=== PATIENT | male | born 1960 | race Two or more races ===

== ENCOUNTER 2019-04-13 14:58 | Inpatient (IN) | payer MEDICARE, MEDICAID ==
[~2019-04-13] VITALS: Ht 190.5 cm; Wt 109.4 kg
[2019-04-13] MEDS ORDERED: SODIUM CHLORIDE 0.9% 500 ML IVB ONE (15:08)
[2019-04-13] MEDS ORDERED: ONDANSETRON HCL 4 MG/2 ML VIAL IV ONE (15:15)
[2019-04-13] MEDS ORDERED: FAMOTIDINE (10MG/ML) 2ML VL IV ONE (15:15)
[2019-04-13 15:57] LABS: Basophils # (auto) 0.1 uL; Basophils % (auto) 0.8 % (0.0-2.0); Eosinophils # (auto) 0.1 uL; Eosinophils % (auto) 0.9 % (0.0-7.0); Hemoglobin 14.1 g/dL (13.5-17.5); Lymphocytes # (auto) 0.8 uL; Lymphocytes % (auto) 9.3 % (10.0-50.0); Mean Corpuscular Hemoglobin 28.8 pg (28.0-32.0); Mean Corpuscular Hgb Conc. 32.9 g/dL (32.0-36.0); Mean Corpuscular Volume 87.5 fL (80.0-100.0); Monocytes # (auto) 0.5 uL; Monocytes % (auto) 5.9 % (0.0-12.0); Neutrophils # (auto) 7.6 uL; Neutrophils % (auto) 83.1 % (37.0-80.0); Platelet Count (auto) 217 10^3/uL (140-450); Red Blood Cells 4.92 10^6/uL (4.5-5.90); Red Cell Distribution Width 14.4 % (11.8-14.3); White Blood Cell 9.1 10^3/uL (4.4-10.8)
[2019-04-13 16:02] LABS: Albumin 2.7 g/dL (3.4-5.0); Magnesium 1.5 mg/dL (1.6-2.6); Potassium 3.9 mmol/L (3.5-5.1)
[2019-04-13 16:04] LABS: BUN/Creatinine Ratio 12.1
[2019-04-13 16:06] LABS: Bilirubin, Total 0.6 mg/dL (0.2-1.0); Total Protein 6.7 g/dL (6.4-8.2)
[2019-04-13] MEDS ORDERED: DEXTROSE (50%) 50ML SYRG IV PRN ×3 (18:00→20:15)
[2019-04-13] MEDS ORDERED: MORPHINE SULF INJ 2 MG/ML SYRINGE 1ML IV PRN (18:00)
[2019-04-13] MEDS ORDERED: NITROGLYCERIN 0.4 MG SL TAB SL PRN (18:00)
[2019-04-13] MEDS ORDERED: HYDROcodone-ACET 5/325MG TAB PO PRN (18:00)
[2019-04-13] MEDS ORDERED: PANTOPRAZOLE 80 MG in SODIUM CHL 0.9% 60 ML IV SCH (18:00)
[2019-04-13] MEDS ORDERED: PANTOPRAZOLE 40 MG/10 ML VIAL INJ IV ONE (18:00)
[2019-04-13] MEDS ORDERED: diphenhdrAMINE HCL 25 MG CAP PO PRN (18:00)
[2019-04-13] MEDS: SOD CHL 0.45% 1,000 ML IV SCH (18:55)
[2019-04-13] MEDS: SUCRALFATE 1 GM/10 ML ORAL SUSP PO SCH ×2 (18:55→22:01)
[2019-04-13 22:00] VITALS: BP 111/51
[2019-04-13] MEDS ORDERED: InsuLIN REG 1unit/0.01ml Soln (100units/ml) SC SCH ×2 (22:00)
[2019-04-13] MEDS ORDERED: INSULIN LANTUS (GLARGINE) 1 /0.01ml (100units/ml) SC SCH (22:00)
[2019-04-13] MEDS ORDERED: ACCU-CHEK COMFORT CURVE STRIP VI SCH ×2 (22:00)
[2019-04-13] MEDS: ATORVASTATIN 20 MG TAB PO SCH (22:01)
[2019-04-13] MEDS: PANTOPRAZOLE 40 MG TAB PO SCH (22:01)
[2019-04-13] MEDS: CILOSTAZOL 100 MG TAB PO SCH (22:01)
[2019-04-13] MEDS: InsuLIN REG 1unit/0.01ml Soln (100units/ml) SC SCH (22:04)
[2019-04-14] MEDS ORDERED: ACCU-CHEK COMFORT CURVE STRIP VI SCH
[2019-04-14] MEDS: SOD CHL 0.45% 1,000 ML IV SCH ×2 (00:55→13:45)
[2019-04-14] MEDS: LINEZOLID 600MG/300ML 300 ML IV SCH ×3 (00:55→22:11)
--- NOTE | 2019-04-14 01:25 | NUR ---
DR. Sejal JAUREGUI SPOKE TO DR. JAUREGUI REGARDING PATIENT'S CRITICAL BLOOD SUGAR OF 437 AFTER RECEIVING 20U REGULAR INSULIN AND 15U LANTUS AT 2200. UPDATED ON PATIENT'S MOST RECENT LAB RESULTS. NEW ORDERS RECEIVED FOR ACCUCHECKS Q4H AGGRESSIVE SCALE, OK TO CHANGE PATIENT TO Q6HOUR ACCUCHECKS WHEN BLOOD SUGAR <200. NEW ORDER RECEIVED FOR SODIUM BICARBONATE 2 AMPULES IN 0.45% NS TO RUN @150ML/HR. CONTACT DR. ALMONTE FOR NEPHROLOGY CONSULT RE:DKA. BMP STAT. ALL ORDERS READ BACK AND VERIFIED.
[2019-04-14] MEDS ORDERED: SODIUM BICARBONATE 8.4 % INJ 50ML VIAL IV ONE ×2 (01:45→02:22)
[2019-04-14] MEDS: InsuLIN REG 1unit/0.01ml Soln (100units/ml) SC SCH ×6 (01:56→20:28)
[2019-04-14 02:00] VITALS: BP 105/49
--- NOTE | 2019-04-14 02:04 | NUR ---
DR. Sejal JAUREGUI RECEIVED CALL FROM . NEW ORDERS RECEIVED: PLACE PATIENT NPO, BMP Q6 HOURS, TRANSFER PATIENT TO [facility]. IF BS<200 START D5W @30ML/HR AND CONTINUE SODIUM BICARB ORDERED. ALL ORDERS READ BACK AND VERIFIED.
--- NOTE | 2019-04-14 02:10 | NUR ---
CHARGE NURSE NOTIFIED OF TRANSFER ORDER. RESIDENTIAL MENTAL HEALTH WORKER AWARE, NO BEDS AVAILABLE AT THIS TIME.
[2019-04-14] MEDS ORDERED: D5W 5% 1,000 ML IV PRN (02:15)
[2019-04-14] MEDS ORDERED: DEXTROSE (50%) 50ML SYRG IV PRN (02:15)
[2019-04-14 02:38] LABS: BUN/Creatinine Ratio 13.1; Calcium 8.7 mg/dL (8.5-10.1); Potassium 3.8 mmol/L (3.5-5.1)
--- NOTE | 2019-04-14 02:55 | NUR ---
IV insertion IV access obtained, via clean sterile technique by inserting 22 gauge catheter at Left wrist after 1 attempt. IV secured properly. No trauma to site. Patient tolerated well.
--- NOTE | 2019-04-14 02:58 | NUR ---
0.45%NS with 2 ampules of sodium bicarbonate started @150ml/hr to left wrist IV per orders.
[2019-04-14] MEDS: SODIUM BICARBONATE 50ML VIAL 100 ML in SOD CHL 0.45% 1,000 ML IV SCH ×2 (03:00→12:34)
[2019-04-14] MEDS: CEFTAROLINE 300 MG in SODIUM CHL 0.9% 250 ML IV SCH ×2 (03:53→16:00)
[2019-04-14 05:00] VITALS: BP 106/49
[2019-04-14] MEDS: DOXYCYCLINE 100MG/250ML 250 ML IV SCH ×2 (05:52→18:54)
[2019-04-14] MEDS: SUCRALFATE 1 GM/10 ML ORAL SUSP PO SCH ×4 (05:53→22:11)
[2019-04-14] MEDS: ACCU-CHEK COMFORT CURVE STRIP VI SCH ×5 (05:57→20:28)
--- NOTE | 2019-04-14 06:00 | NUR ---
WOUND CARE PHOTOS TAKEN AT THIS TIME. REMOVED OLD DRESSING FROM RIGHT FOOT. MOD SEROSANGUINEOUS DRAINAGE NOTED WITH NO ODOR. S/P RIGHT GREAT TOE AMPUTATION PER PATIENT AT [facility]. WOUND CARE FORM FILLED OUT AND PLACED IN BIN.
[2019-04-14 06:19] LABS: Basophils # (auto) 0.2 uL; Basophils % (auto) 1.7 % (0.0-2.0); Eosinophils # (auto) 0.4 uL; Eosinophils % (auto) 4.2 % (0.0-7.0); Hematocrit 36.4 % (41.0-53.0); Hemoglobin 12.2 g/dL (13.5-17.5); Lymphocytes # (auto) 1.5 uL; Lymphocytes % (auto) 16.8 % (10.0-50.0); Mean Corpuscular Hgb Conc. 33.5 g/dL (32.0-36.0); Mean Corpuscular Volume 86.6 fL (80.0-100.0); Monocytes # (auto) 0.8 uL; Monocytes % (auto) 9.1 % (0.0-12.0); Neutrophils # (auto) 6.2 uL; Neutrophils % (auto) 68.2 % (37.0-80.0); Platelet Count (auto) 207 10^3/uL (140-450); Red Blood Cells 4.21 10^6/uL (4.5-5.90); Red Cell Distribution Width 14.3 % (11.8-14.3); White Blood Cell 9.1 10^3/uL (4.4-10.8)
--- NOTE | 2019-04-14 06:26 | NUR ---
[facility] CONSULT CALLED IN TO DR. Naseem JAUREGUI.
[2019-04-14] MEDS ORDERED: InsuLIN REG 1unit/0.01ml Soln (100units/ml) SC SCH ×2 (07:00)
[2019-04-14] MEDS ORDERED: INSULIN LANTUS (GLARGINE) 1 /0.01ml (100units/ml) SC SCH (07:00)
--- NOTE | 2019-04-14 07:20 | NUR ---
Opening Shift Note Assumed care of patient, awake and alert. No S/S of distress/SOB or pain. Instructed on POC and to call for assist PRN, will continue to monitor for changes Q1hr and PRN.
[2019-04-14 07:50] LABS: BUN/Creatinine Ratio 13.3; Calcium 8.2 mg/dL (8.5-10.1); Potassium 3.6 mmol/L (3.5-5.1)
[2019-04-14 09:00] VITALS: BP 121/58
[2019-04-14] MEDS ORDERED: cefTRIAXone 1GM/50ML D5W 50 ML IV SCH (09:00)
[2019-04-14] MEDS ORDERED: MAGNESIUM CITRATE SOLUTION 300 ML BTL PO ONE (09:45)
[2019-04-14] MEDS ORDERED: LISINOPRIL 10 MG TAB PO SCH (10:00)
[2019-04-14] MEDS: TAMSULOSIN HYDROCHLORIDE 0.4 MG CAP PO SCH (10:18)
[2019-04-14] MEDS: CILOSTAZOL 100 MG TAB PO SCH ×2 (10:18→22:00)
[2019-04-14] MEDS: PANTOPRAZOLE 40 MG TAB PO SCH (10:18)
--- NOTE | 2019-04-14 11:17 | NUR ---
Per Dr. Dao. Obtain consent for "upper endoscopy, possible biopsy, possible control of bleeding"
[2019-04-14 11:37] LABS: Potassium 3.1 mmol/L (3.5-5.1)
[2019-04-14 11:41] LABS: BUN/Creatinine Ratio 13.2; Calcium 8.3 mg/dL (8.5-10.1)
--- NOTE | 2019-04-14 12:08 | NUR ---
WOUND CARE NOTE: Wound care in to see patient per wound care request regarding "right foot wound" that are noted present on admission. Bedside nurse took photograph of patient's wounds upon admission for reference. Patient is 59 years old male with admitting diagnosis of GI Bleed. Patient is resting in bed in Rm 204. He's awake,alert and oriented. He's able to turn and reposition self. His current Yusef score is 19. Patient is in no stated pain at this time. Noted patient's Rt lateral foot has 7.5x5x0.5cm open full thickness wound with missing R 5th toe. His lateral 4th toe has necrotic/eschar wound measuring 3x1cm. To dorsal aspect of his Rt foot are two black eschar wound measuring 4x2cm and 4x1.5cm. Rt. lateral foot wound bed has 60% red granulation tissue and 40% yellow adherent slough, scant serous drainage, no odor noted. Patient reported that he has had amputation of Right fifth toe "on march at [facility]". He added that he's never been home yet as he's been in and out of hospital and SNF and not able to follow up with his surgeon. Cleansed patient's Rt foot wound with wound cleanser, patted dry with sterile gauze, applied Thera honey gel, covered with non-adherent dressing (Telfa), wrapped with Kerlix and secured with tape. 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 Patient tolerated well and denies any other wound. Bed in low position, call yin on hand with all safety precautions in placed. Patient's visitors at bedside. RECOMMENDATION: BID/PRN cleaning and application of Barrier cream to sacral/buttock as preventative, EOD/PRN dressing change to R foot wound per MD order, redistribute pressure points with pillows, continue monitoring by wound care while patient is hospitalized. Addendum: 04/14/19 at 1618 by Rhina Abellar RN Amended: Links added.
[2019-04-14] MEDS ORDERED: SODIUM CHLORIDE LOCK 10 ML ONE (12:15)
[2019-04-14] MEDS ORDERED: LIDOCAINE VISCOUS 2% 15ML UD ONE (12:15)
[2019-04-14] MEDS ORDERED: MIDAZOLAM HCL 5 MG/ML-1ML VIAL ONE (12:16)
[2019-04-14] MEDS ORDERED: diphenhdrAMINE HCL 50 MG/1 ML VL ONE (12:16)
[2019-04-14] MEDS ORDERED: fentaNYL CITRATE 100 MCG/2 ML VL ONE (12:16)
[2019-04-14 13:00] VITALS: BP 115/47
[2019-04-14 13:29] LABS: INR 1.09 (0.9-1.15); Partial Thromboplastin Time 27.3 sec (23.64-32.05)
[2019-04-14] MEDS ORDERED: POTASSIUM CHL 20MEQ/100ML 100 ML IV ONE (14:00)
[2019-04-14] MEDS: POTASSIUM CHL 20MEQ/100ML 100 ML IV SCH ×2 (16:44→18:58)
[2019-04-14 16:46] VITALS: BP 102/50
--- NOTE | 2019-04-14 19:10 | NUR ---
Change of shift given to night custodian RN. No distress noted.
--- NOTE | 2019-04-14 19:45 | NUR ---
Opening Shift Note Assumed care of patient, awake and alert. No S/S of distress/SOB or pain. Dressing to Right foot dry and intact. Instructed on POC and to call for assist PRN, patient verbalized understanding, call light within reach, will continue to monitor for changes Q1hr and PRN.
[2019-04-14 21:45] VITALS: BP 117/61
[2019-04-14] MEDS ORDERED: FAMOTIDINE (10MG/ML) 2ML VL IV SCH (22:00)
[2019-04-14] MEDS: PANTOPRAZOLE 40 MG/10 ML VIAL INJ IV SCH (22:11)
[2019-04-14] MEDS: ATORVASTATIN 20 MG TAB PO SCH (22:11)
[2019-04-14] MEDS: INSULIN LANTUS (GLARGINE) 1 /0.01ml (100units/ml) SC SCH (22:35)
--- NOTE | 2019-04-15 00:45 | NUR ---
Dr. Sanchez at bedside
[2019-04-15] MEDS: InsuLIN REG 1unit/0.01ml Soln (100units/ml) SC SCH ×7 (00:46→23:50)
[2019-04-15] MEDS: CEFTAROLINE 300 MG in SODIUM CHL 0.9% 250 ML IV SCH ×2 (04:12→16:20)
[2019-04-15] MEDS: ACCU-CHEK COMFORT CURVE STRIP VI SCH ×7 (04:12→23:51)
[2019-04-15 04:39] VITALS: BP 107/54
[2019-04-15] MEDS: DOXYCYCLINE 100MG/250ML 250 ML IV SCH ×2 (05:30→17:35)
[2019-04-15] MEDS: SUCRALFATE 1 GM/10 ML ORAL SUSP PO SCH ×4 (06:00→21:38)
[2019-04-15 06:18] LABS: BUN/Creatinine Ratio 12.7; Potassium 3.1 mmol/L (3.5-5.1)
[2019-04-15] MEDS: SOD CHL 0.45% 1,000 ML IV SCH ×2 (06:25→12:46)
[2019-04-15] MEDS: INSULIN LANTUS (GLARGINE) 1 /0.01ml (100units/ml) SC SCH ×2 (07:42→21:39)
--- NOTE | 2019-04-15 08:00 | NUR ---
Morning note patient resting in bed with even and unlabored respirations, no distress noted, eyes closed. Fall precautions in place with bed in lowest locked position with x2 side rails up and call light within reach. Will continue to monitor q1hr & PRN.
[2019-04-15 09:00] VITALS: BP 126/68
[2019-04-15] MEDS: TAMSULOSIN HYDROCHLORIDE 0.4 MG CAP PO SCH (09:59)
[2019-04-15] MEDS: LINEZOLID 600MG/300ML 300 ML IV SCH ×2 (09:59→21:40)
[2019-04-15] MEDS: PANTOPRAZOLE 40 MG/10 ML VIAL INJ IV SCH ×2 (10:00→21:41)
[2019-04-15] MEDS ORDERED: DEXTROSE (50%) 50ML SYRG IV PRN (12:00)
[2019-04-15 13:00] VITALS: BP 118/56
--- NOTE | 2019-04-15 14:04 | NUR ---
Notified MD of recent potassium level Notified Dr. Sejal Sanchez. MD verbalized understanding. Orders received and read back to verify. Updated MD of BUN/CREA level and blood glucose levels <200. MD verbalized understanding.
[2019-04-15] MEDS ORDERED: POTASSIUM CHL 20 Meq TABLET PO ONE (14:15)
[2019-04-15 16:43] VITALS: BP 118/63
--- NOTE | 2019-04-15 17:45 | NUR ---
Patient had large BM - no melena noted.
--- NOTE | 2019-04-15 18:36 | NUR ---
Spoke with RE: pharmacy clarification Updated Dr. Sejal Sanchez of pharmacies clarification request. verbalized understanding. Order received and read back to verify.
--- NOTE | 2019-04-15 18:48 | NUR ---
Closing note patient resting in bed withe even and unlabored respirations, no distress noted. Fall precautions in place with bed in lowest locked position, call light within reach. Dressing to the right foot is clean, dry and intact.
--- NOTE | 2019-04-15 19:16 | NUR ---
Care endorsed to MANNY Marie. Including to but not limited to wound care. Cynthia verbalized understanding.
--- NOTE | 2019-04-15 19:27 | NUR ---
Faxed medical records request per MD's order to [facility] in [place].
--- NOTE | 2019-04-15 19:30 | NUR ---
Opening shift note Patient in bed alert and oriented x 4. Patient's respiration even and unlabored denies pain and discomfort at this time. Plan of care discussed, patient verbalized understanding. Family at bedside, will continue to monitor.
--- NOTE | 2019-04-15 20:40 | NUR ---
Dr. Naseem Sanchez at bedside with new order to discontinue NS 0.45% current order. All orders noted and carried out. Will continue to monitor.
[2019-04-15 21:30] VITALS: BP 124/65
[2019-04-15] MEDS: ATORVASTATIN 20 MG TAB PO SCH (21:38)
[2019-04-16] MEDS: CEFTAROLINE 300 MG in SODIUM CHL 0.9% 250 ML IV SCH ×2 (04:36→16:16)
[2019-04-16 05:00] VITALS: BP 110/59
[2019-04-16] MEDS: ACCU-CHEK COMFORT CURVE STRIP VI SCH ×3 (05:48→17:31)
[2019-04-16] MEDS: DOXYCYCLINE 100MG/250ML 250 ML IV SCH ×2 (05:48→17:30)
[2019-04-16] MEDS: InsuLIN REG 1unit/0.01ml Soln (100units/ml) SC SCH ×3 (05:50→17:31)
[2019-04-16] MEDS: INSULIN LANTUS (GLARGINE) 1 /0.01ml (100units/ml) SC SCH ×2 (06:19→22:27)
[2019-04-16] MEDS: SUCRALFATE 1 GM/10 ML ORAL SUSP PO SCH ×4 (06:19→22:09)
[2019-04-16 06:33] LABS: BUN/Creatinine Ratio 12.7; Calcium 7.8 mg/dL (8.5-10.1); Potassium 3.4 mmol/L (3.5-5.1)
[2019-04-16 08:30] VITALS: BP 110/53
[2019-04-16] MEDS: LINEZOLID 600MG/300ML 300 ML IV SCH ×2 (09:06→22:09)
[2019-04-16] MEDS: PANTOPRAZOLE 40 MG/10 ML VIAL INJ IV SCH ×2 (09:06→22:09)
[2019-04-16] MEDS: TAMSULOSIN HYDROCHLORIDE 0.4 MG CAP PO SCH (09:06)
--- NOTE | 2019-04-16 12:22 | NUR ---
was at bedside - Dr. Sejal Sanchez
[2019-04-16 13:01] VITALS: BP 108/59
--- NOTE | 2019-04-16 15:10 | NUR ---
Visitors at bedside respirations even and unlabored, no distress noted. Patient eating food brought into hospital by visitors. Call light within reach.
[2019-04-16 17:00] VITALS: BP 121/59
--- NOTE | 2019-04-16 18:10 | NUR ---
Visitors at bedside
--- NOTE | 2019-04-16 18:28 | NUR ---
Closing note patient resting in bed withe even and unlabored respirations, no distress noted. Fall precautions in place with bed in lowest locked position, call light within reach. Dressing to the right foot is clean, dry and intact. Pressure ulcer prevention education has been provided to patient throughout shift. Patient stated "I've been shifting and moving throughout the day. I don't want to get one of those things!"
--- NOTE | 2019-04-16 19:25 | NUR ---
Care endorsed to MANNY Denton.
[2019-04-16 22:00] VITALS: BP 106/54
[2019-04-16] MEDS: ATORVASTATIN 20 MG TAB PO SCH (22:10)
[2019-04-17] MEDS: ACCU-CHEK COMFORT CURVE STRIP VI SCH ×5 (00:25→23:43)
[2019-04-17] MEDS: InsuLIN REG 1unit/0.01ml Soln (100units/ml) SC SCH ×5 (00:26→23:43)
[2019-04-17] MEDS: CEFTAROLINE 300 MG in SODIUM CHL 0.9% 250 ML IV SCH ×2 (04:03→16:08)
[2019-04-17 05:00] VITALS: BP 123/65
[2019-04-17] MEDS: DOXYCYCLINE 100MG/250ML 250 ML IV SCH ×2 (05:08→17:10)
--- NOTE | 2019-04-17 06:02 | NUR ---
Dressing to left foot changed per wound care recommendation, patient tolerated well
[2019-04-17] MEDS: SUCRALFATE 1 GM/10 ML ORAL SUSP PO SCH ×5 (06:51→22:07)
[2019-04-17] MEDS: INSULIN LANTUS (GLARGINE) 1 /0.01ml (100units/ml) SC SCH ×2 (06:52→22:08)
[2019-04-17 07:18] LABS: BUN/Creatinine Ratio 12.8; Potassium 3.5 mmol/L (3.5-5.1)
[2019-04-17 09:00] VITALS: BP 124/60
[2019-04-17] MEDS: TAMSULOSIN HYDROCHLORIDE 0.4 MG CAP PO SCH (09:29)
[2019-04-17] MEDS: LINEZOLID 600MG/300ML 300 ML IV SCH (09:29)
[2019-04-17] MEDS: PANTOPRAZOLE 40 MG/10 ML VIAL INJ IV SCH ×2 (10:00→22:07)
--- NOTE | 2019-04-17 11:37 | NUR ---
Nutrition consult/assessment Notes please see attached link for complete assessment Est. Needs ABW [id number] kcal (23-25 kcal/kgBW), 79-99 gms pro (0.8-1.0 gms/kgBW r/t elev RFT wounds). Will continue to monitor pertinent labs and reassess nutrient need prn Addendum: 04/17/19 at [address] Amended: Links added.
[2019-04-17] MEDS: ONDANSETRON ODT 4 MG TAB PO PRN (12:56)
[2019-04-17 13:00] VITALS: BP 126/65
--- NOTE | 2019-04-17 13:32 | NUR ---
Spoke with Dr. Sejal Sanchez to receive a family welfare social work professor consult and to find out what antibiotics the patient's insurance will cover so that he may be sent home on antibiotic therapy Addendum: 04/17/19 at 1335 by NADIA FERNANDEZ RN RN Time spoken to doctor was at 09:30am
[2019-04-17 17:00] VITALS: BP 110/61
--- NOTE | 2019-04-17 19:40 | NUR ---
Opening Note Assumed pt care from day shift nurse. PT is a/ox4 with no s/s of distress or SOB. Pt is currently laying in bed with no complaints. Discussed POC with pt, pt verbalized understanding. Safety measures maintained with call light within reach, bed in lowest position and side rails up. Will continue to monitor for changes q1hr and PRN.
[2019-04-17 22:00] VITALS: BP 104/60
[2019-04-17] MEDS: ATORVASTATIN 20 MG TAB PO SCH (22:07)
--- NOTE | 2019-04-18 02:31 | NUR ---
Dr Sanchez at Bedside
[2019-04-18] MEDS: CEFTAROLINE 300 MG in SODIUM CHL 0.9% 250 ML IV SCH ×2 (03:24→17:39)
[2019-04-18] MEDS: DOXYCYCLINE 100MG/250ML 250 ML IV SCH ×2 (04:38→19:03)
[2019-04-18 05:00] VITALS: BP 134/64
[2019-04-18] MEDS: InsuLIN REG 1unit/0.01ml Soln (100units/ml) SC SCH ×4 (05:30→23:30)
[2019-04-18] MEDS: SUCRALFATE 1 GM/10 ML ORAL SUSP PO SCH ×4 (05:30→21:48)
[2019-04-18] MEDS: ACCU-CHEK COMFORT CURVE STRIP VI SCH ×4 (05:30→23:27)
[2019-04-18] MEDS: INSULIN LANTUS (GLARGINE) 1 /0.01ml (100units/ml) SC SCH ×2 (06:49→21:49)
[2019-04-18 09:00] VITALS: BP 125/63
[2019-04-18] MEDS: PANTOPRAZOLE 40 MG/10 ML VIAL INJ IV SCH ×2 (09:37→21:48)
[2019-04-18] MEDS: TAMSULOSIN HYDROCHLORIDE 0.4 MG CAP PO SCH (09:42)
[2019-04-18 13:00] VITALS: BP 118/65
[2019-04-18 17:00] VITALS: BP 116/57
--- NOTE | 2019-04-18 19:40 | NUR ---
Opening Note Assumed pt care from day shift nurse. Pt is a/ox4 with no s/s of distress or SOB. Pt is currently laying in bed and has c/o n/v due to doxycycline. Offered available n/v medication, pt denied. Discussed POC with pt, pt verbalized understanding. Safety measures maintained with call light within reach, bed in lowest position and side rails up. Dressing to R foot is still intact, discussed with pt the need to change dressing today, pt verbalized understanding. Will continue to monitor for changes q1hr and prn.
[2019-04-18] MEDS: ATORVASTATIN 20 MG TAB PO SCH (21:48)
[2019-04-18 22:00] VITALS: BP 137/70
--- NOTE | 2019-04-18 22:57 | NUR ---
Frequent N/V During as well as after the administration of doxycycline, pt is experiencing increased N/V. Offered antinausea medication, pt refused. Will continue to monitor.
--- NOTE | 2019-04-18 23:41 | NUR ---
Wound Dressing Change Complete wound dressing change complete on pt's right foot. Amputation of 5th toe wound has no drainage or odor present. Ulcer on top of foot is asymptomatic, no drainage or odor present and appears to be healing well with a scab present. Cleansed with wound cleanser and honey applied. Pt tolerated change well.
[2019-04-19] MEDS: CEFTAROLINE 300 MG in SODIUM CHL 0.9% 250 ML IV SCH ×2 (03:57→18:28)
--- NOTE | 2019-04-19 04:41 | NUR ---
Dr Sanchez at Bedside Orders received by Dr Sanchez and implemented
[2019-04-19 05:00] VITALS: BP 140/74
[2019-04-19] MEDS: DOXYCYCLINE 100MG/250ML 250 ML IV SCH ×3 (05:00→18:28)
--- NOTE | 2019-04-19 05:01 | NUR ---
Pt Refused Doxycycline Pt refused IV antibiotic. Educated pt on importance of medication as well as the side effects. Pt still refused. Will endorse to day shift.
[2019-04-19] MEDS: ACCU-CHEK COMFORT CURVE STRIP VI SCH ×4 (05:54→22:55)
[2019-04-19] MEDS: SUCRALFATE 1 GM/10 ML ORAL SUSP PO SCH ×4 (05:54→21:32)
[2019-04-19] MEDS: InsuLIN REG 1unit/0.01ml Soln (100units/ml) SC SCH ×4 (05:58→22:56)
[2019-04-19] MEDS: INSULIN LANTUS (GLARGINE) 1 /0.01ml (100units/ml) SC SCH ×2 (06:19→22:56)
--- NOTE | 2019-04-19 08:10 | NUR ---
PT RESTING IN BED NO DISTRESS NOTED. PT REPORTS NO PAIN AT THIS TIME. DRESSING NOTED ON RIGHT FOOT, CLEAN DRY AND INTACT. PT ENCOURAGED TO USE CALL LIGHT PRN. PT REPORTS HE HAS HAD NO RECENT BLOOD IN HIS STOOL.
[2019-04-19 09:00] VITALS: BP 145/68
[2019-04-19] MEDS: PANTOPRAZOLE 40 MG/10 ML VIAL INJ IV SCH ×2 (10:00→21:31)
[2019-04-19 10:05] LABS: Basophils # (auto) 0.2 uL; Basophils % (auto) 2.4 % (0.0-2.0); Eosinophils # (auto) 0.4 uL; Eosinophils % (auto) 5.1 % (0.0-7.0); Hematocrit 36.9 % (41.0-53.0); Hemoglobin 12.6 g/dL (13.5-17.5); Lymphocytes # (auto) 1.7 uL; Lymphocytes % (auto) 21.3 % (10.0-50.0); Mean Corpuscular Hemoglobin 28.9 pg (28.0-32.0); Mean Corpuscular Hgb Conc. 34.1 g/dL (32.0-36.0); Mean Corpuscular Volume 84.7 fL (80.0-100.0); Monocytes # (auto) 0.8 uL; Monocytes % (auto) 9.9 % (0.0-12.0); Neutrophils # (auto) 4.9 uL; Neutrophils % (auto) 61.3 % (37.0-80.0); Platelet Count (auto) 129 10^3/uL (140-450); Red Blood Cells 4.35 10^6/uL (4.5-5.90); Red Cell Distribution Width 13.9 % (11.8-14.3)
[2019-04-19 10:20] LABS: BUN/Creatinine Ratio 13.9; Calcium 8.6 mg/dL (8.5-10.1); Potassium 3.4 mmol/L (3.5-5.1)
[2019-04-19] MEDS: TAMSULOSIN HYDROCHLORIDE 0.4 MG CAP PO SCH (10:42)
--- NOTE | 2019-04-19 12:00 | NUR ---
PT REPORTS NAUSEA FROM ANTIBIOTICS. OFFERED NAUSEA MEDICATION, PT REPORTS HE DOES NOT WANT IT. WILL CONTINUE TO MONITOR.
[2019-04-19 13:05] VITALS: BP 150/68
[2019-04-19 17:00] VITALS: BP 122/63
--- NOTE | 2019-04-19 18:39 | NUR ---
PT REFUSING DOXYCYCLINE AND CARAFATE, PT REPORTS IT MAKES HIM NAUSEOUS. PT VOMITED A SMALL AMOUNT IN GREEN BAG. DOXYCYCLINE STOPPED. OFFERED PT NAVJOT, PT REFUSED. Addendum: 04/19/19 at 1841 by ELENI WHITNEY RN EDUCATED PT ON IMPORTANCE OF ABX, PT STILL REFUSED.
[2019-04-19] MEDS: ATORVASTATIN 20 MG TAB PO SCH (21:33)
--- NOTE | 2019-04-19 21:33 | NUR ---
Pain Management Pt medicated for pain 04/22 in foot, will monitor for pain relief
[2019-04-19 21:44] VITALS: BP 120/66
[2019-04-20] MEDS: CEFTAROLINE 300 MG in SODIUM CHL 0.9% 250 ML IV SCH ×2 (04:13→16:05)
[2019-04-20] MEDS: DOXYCYCLINE 100MG/250ML 250 ML IV SCH ×2 (04:18→17:38)
--- NOTE | 2019-04-20 04:54 | NUR ---
Patient linen change Patient given complete linen change. Skin integrity assessed for any changes. Leg elevated on pillow. Linens changed. Patient repositioned for comfort, patient assisted with turning, patient tolerated well.
--- NOTE | 2019-04-20 05:00 | NUR ---
Pt refusing doxycycline, c/o nausea with medication offered nausea medication patient declined continues to refuse it
[2019-04-20 05:05] VITALS: BP 131/63
[2019-04-20] MEDS: ACCU-CHEK COMFORT CURVE STRIP VI SCH ×4 (06:00→22:52)
--- NOTE | 2019-04-20 06:30 | NUR ---
Patient refusing carafate, will waste medication
[2019-04-20] MEDS: SUCRALFATE 1 GM/10 ML ORAL SUSP PO SCH ×4 (06:48→22:00)
[2019-04-20] MEDS: InsuLIN REG 1unit/0.01ml Soln (100units/ml) SC SCH ×4 (06:49→22:53)
[2019-04-20] MEDS: INSULIN LANTUS (GLARGINE) 1 /0.01ml (100units/ml) SC SCH ×2 (06:49→22:52)
--- NOTE | 2019-04-20 07:25 | NUR ---
OPENING NOTE Assumed care of patient from NOC RNDiana. Patient awake and alert with no S/S of distress/SOB or pain. Instructed on POC and to call for assist PRN, verbalized understanding. Bed in lowest, locked position with side rails up x2. Fall precautions in place and call light within reach. Will continue to monitor for changes Q1hr and PRN.
--- NOTE | 2019-04-20 07:30 | NUR ---
Endorsed care to Marietta BRYANT
[2019-04-20 09:00] VITALS: BP 124/60
[2019-04-20] MEDS: PANTOPRAZOLE 40 MG/10 ML VIAL INJ IV SCH ×2 (10:31→22:21)
[2019-04-20] MEDS: TAMSULOSIN HYDROCHLORIDE 0.4 MG CAP PO SCH (10:31)
[2019-04-20 13:00] VITALS: BP 127/67
--- NOTE | 2019-04-20 16:10 | NUR ---
assessment Per consult discharge planning. Patient refuses to go back to SNF. Will need IV ABX. Patient informed me he will return home with his on discharge. Patient has someone teachable. Patient has a fww and a cane for home use. Margo oil field caser has already spoken to patients bedside RN for proper IV ABX order. Patient verbalized understanding and agreed to discharge plan home. Addendum: 04/20/19 at 1613 by Tasneem Ball Amended: Links added.
[2019-04-20 17:15] VITALS: BP 129/64
--- NOTE | 2019-04-20 17:28 | NUR ---
SS Spoke with Margo MEDINA, regarding patient's refusal of returning to SNF and need for home IV antibiotic treatment. States that MD needs to place order stating antibiotic specifics such as name, dose and duration.
[2019-04-20] MEDS: ONDANSETRON ODT 4 MG TAB PO PRN (17:40)
--- NOTE | 2019-04-20 17:42 | NUR ---
PAGED Left message with Dr. Sejal Sanchez's exchange regarding continued IV antibiotic treatment.
--- NOTE | 2019-04-20 18:20 | NUR ---
REFUSED MED Patient refused carafate.
--- NOTE | 2019-04-20 19:32 | NUR ---
CLOSING NOTE Endorsed care of patient to NOC RNJeannette.
[2019-04-20 22:00] VITALS: BP 138/69
[2019-04-20] MEDS: ATORVASTATIN 20 MG TAB PO SCH (22:23)
[2019-04-21] MEDS: CEFTAROLINE 300 MG in SODIUM CHL 0.9% 250 ML IV SCH ×2 (04:08→16:00)
[2019-04-21 05:00] VITALS: BP 143/66
[2019-04-21] MEDS: DOXYCYCLINE 100MG/250ML 250 ML IV SCH ×3 (05:00→17:30)
[2019-04-21] MEDS: ACCU-CHEK COMFORT CURVE STRIP VI SCH ×4 (05:54→23:42)
[2019-04-21] MEDS: SUCRALFATE 1 GM/10 ML ORAL SUSP PO SCH ×4 (05:54→22:00)
[2019-04-21] MEDS: InsuLIN REG 1unit/0.01ml Soln (100units/ml) SC SCH ×4 (05:56→23:43)
[2019-04-21] MEDS: INSULIN LANTUS (GLARGINE) 1 /0.01ml (100units/ml) SC SCH ×2 (06:27→23:43)
[2019-04-21] MEDS: ONDANSETRON ODT 4 MG TAB PO PRN (06:28)
--- NOTE | 2019-04-21 07:38 | NUR ---
OPENING NOTE Assumed care of patient from NOC RN, Jeannette. Patient resting in bed with eyes closed, even rise and fall of chest noted. No S/S of distress/SOB or pain. Bed in lowest, locked position with side rails up x2. Fall precautions in place and call light within reach. Will continue to monitor for changes Q1hr and PRN.
[2019-04-21 08:00] VITALS: BP 134/59
[2019-04-21] MEDS: TAMSULOSIN HYDROCHLORIDE 0.4 MG CAP PO SCH (10:34)
[2019-04-21] MEDS: PANTOPRAZOLE 40 MG/10 ML VIAL INJ IV SCH ×2 (10:34→22:09)
[2019-04-21 12:00] VITALS: BP 126/62
--- NOTE | 2019-04-21 12:06 | NUR ---
REFUSED MED Patient refused Carafate as ordered, states "it makes me feel sick".
--- NOTE | 2019-04-21 12:12 | NUR ---
PAGED Left message with Dr. Sejal Sanchez's office staff regarding whether or not patient will be continuing IV antibiotics outpatient. Awaiting call back.
--- NOTE | 2019-04-21 13:46 | NUR ---
DRESSING CHANGE Removed dressing from right foot. Cleaned lateral wound and dorsal part of foot with wound cleanser, patted dry with sterile gauze. Applied therahoney gauze to lateral wound bed, covered with nonadhesive optifoam and kerlix. Patient tolerated well.
--- NOTE | 2019-04-21 14:20 | NUR ---
MD STRINGER Spoke with Dr. Sejal Sanchez. States that patient can be discharged but needs to continue with IV antibiotics, Teflaro and Vibramycin, for an additional 4 weeks outpatient.
--- NOTE | 2019-04-21 14:27 | NUR ---
SS Left message with Margo MEDINA, informing that patient needs to continue with IV antibiotics. At this point patient is still refusing to go to a SNF.
--- NOTE | 2019-04-21 16:29 | NUR ---
SS Spoke with Margo MEDINA. States she is working on setting up home health for IV antibiotics.
--- NOTE | 2019-04-21 16:32 | NUR ---
I faxed home IV ATB order to [facility] (fax [phone]-----phone number [phone]). I spoke with nurse Mcmanus regarding the status of the home IV ATB order for this patient.
[2019-04-21 17:00] VITALS: BP 137/63
--- NOTE | 2019-04-21 17:36 | NUR ---
REFUSED MED Patient refused Doxycycline and Carafate, states that they "both make me feel sick".
--- NOTE | 2019-04-21 18:15 | NUR ---
HOME PHARMACY Spoke with Franco Salvador [facility] [employer]. States that patient does not have pharmacy coverage therefore would need to pay out of pocket for IV antibiotics. Out of pocket cost for Teflaro is $14,000 and Doxycycline is $2,240 for the recommended 4 weeks. Patient informed, states, "that is absolutely ridiculous and something I obviously can not afford". Patient is still refusing SNF placement, " I just spent a month at a SNF and I refuse to go back". Will notify attending MD, Dr. Sejal Sanchez. Pharmacy phone # Wednesday hours 9am-1pm Mon-Fri hours 9am-6pm.
--- NOTE | 2019-04-21 18:42 | NUR ---
ATTEMPTED TO CONTACT MD Called Dr. Sejal Sanchez's exchange, stated that MD preferred to be called on cell phone, # . Call went straight to voice mail and mail box was full. Call was to notify MD of out of pocket cost for recommended medications.
--- NOTE | 2019-04-21 19:26 | NUR ---
CLOSING NOTE Endorsed care of patient to NOC RNJeannette.
[2019-04-21 22:00] VITALS: BP 124/63
[2019-04-21] MEDS: ATORVASTATIN 20 MG TAB PO SCH (22:10)
[2019-04-22] MEDS: CEFTAROLINE 300 MG in SODIUM CHL 0.9% 250 ML IV SCH ×2 (04:19→16:46)
[2019-04-22 05:00] VITALS: BP 121/61
[2019-04-22] MEDS: DOXYCYCLINE 100MG/250ML 250 ML IV SCH ×2 (05:00→17:41)
[2019-04-22 05:54] LABS: Basophils # (auto) 0.2 uL; Basophils % (auto) 2.1 % (0.0-2.0); Eosinophils # (auto) 0.4 uL; Eosinophils % (auto) 5.7 % (0.0-7.0); Hematocrit 34.3 % (41.0-53.0); Hemoglobin 11.7 g/dL (13.5-17.5); Lymphocytes # (auto) 1.9 uL; Lymphocytes % (auto) 25.6 % (10.0-50.0); Mean Corpuscular Hemoglobin 28.9 pg (28.0-32.0); Mean Corpuscular Hgb Conc. 34.1 g/dL (32.0-36.0); Mean Corpuscular Volume 84.8 fL (80.0-100.0); Monocytes # (auto) 1.2 uL; Monocytes % (auto) 16.1 % (0.0-12.0); Neutrophils # (auto) 3.8 uL; Neutrophils % (auto) 50.5 % (37.0-80.0); Platelet Count (auto) 87 10^3/uL (140-450); Red Blood Cells 4.05 10^6/uL (4.5-5.90); White Blood Cell 7.6 10^3/uL (4.4-10.8)
[2019-04-22] MEDS: SUCRALFATE 1 GM/10 ML ORAL SUSP PO SCH ×3 (06:00→17:41)
[2019-04-22 06:15] LABS: Albumin 2.3 g/dL (3.4-5.0); Calcium 8.1 mg/dL (8.5-10.1); Potassium 3.3 mmol/L (3.5-5.1)
[2019-04-22 06:18] LABS: BUN/Creatinine Ratio 16.7; Bilirubin, Total 0.6 mg/dL (0.2-1.0); Total Protein 5.5 g/dL (6.4-8.2)
[2019-04-22] MEDS: ACCU-CHEK COMFORT CURVE STRIP VI SCH ×3 (06:39→17:41)
[2019-04-22] MEDS: InsuLIN REG 1unit/0.01ml Soln (100units/ml) SC SCH ×3 (06:42→17:41)
[2019-04-22] MEDS: INSULIN LANTUS (GLARGINE) 1 /0.01ml (100units/ml) SC SCH (06:43)
[2019-04-22 08:00] VITALS: BP 125/63
--- NOTE | 2019-04-22 10:40 | NUR ---
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 States that he will be rounding at the hospital shortly.
[2019-04-22] MEDS: TAMSULOSIN HYDROCHLORIDE 0.4 MG CAP PO SCH (10:52)
[2019-04-22] MEDS: PANTOPRAZOLE 40 MG/10 ML VIAL INJ IV SCH (10:52)
--- NOTE | 2019-04-22 11:49 | NUR ---
AT BEDSIDE Dr. Sejal Sanchez at patient's bedside. Patient still refusing SNF placement. Per MD will DC patient home on oral antibiotics.
--- NOTE | 2019-04-22 11:50 | NUR ---
WOUND CARE NOTE: IN TO SEE PATIENT, PROVIDE DRESSING CHANGE, TAKE DISCHARGE PHOTOS AT THIS TIME. ALL WOUNDS PHOTOGRAPHED FOR REFERENCE, RIGHT FOOT WOUNDS DRESSED PER MD ORDER. PATIENT EDUCATED IN WOUND CARE AT THIS TIME. PATIENT VERBALIZED UNDERSTANDING. PATIENT WILL BE DISCHARGED THIS PM, PER MD AT BEDSIDE. Addendum: 04/22/19 at 1802 by Ibis Guzman RN Amended: Links added.
[2019-04-22 12:00] VITALS: BP 113/66
--- NOTE | 2019-04-22 12:28 | NUR ---
HOME HEALTH Received call from Jelly from [facility]. Requesting patient information be faxed.
--- NOTE | 2019-04-22 13:12 | NUR ---
HOME HEALTH Patient information faxed to [facility].
--- NOTE | 2019-04-22 14:22 | NUR ---
PT Per Grady LAWRENCE, patient is independent in transfers and is fine to be discharged.
--- NOTE | 2019-04-22 15:18 | NUR ---
HOME HEALTH Spoke to Jelly at [facility], confirmed that paperwork was received and home health has been arranged to begin on 04/24/19. Patient aware.
[2019-04-22 16:20] VITALS: BP 141/69
--- NOTE | 2019-04-22 17:42 | NUR ---
REFUSED MED Patient refused Doxycycline and Carafate, states that they "both make me feel sick".
--- NOTE | 2019-04-22 17:58 | NUR ---
WOUND PHOTO Spoke with boat dock operator, Karin, states wound photos were already taken today so no need to do so upon discharge.
--- NOTE | 2019-04-22 19:05 | NUR ---
DISCHARGE Discharge instructions given as ordered. Encouraged to follow up with PMD as instructed. All questions and concerns addressed. Patient verbalized understanding. Medication reconciliation form completed and copy given to patient. IV removed with catheter intact and pressure dressing applied. Patient taken to vehicle via wheelchair with all personal belongings, accompanied by family member. No distress noted at time of departure.
== END 2019-04-22 19:05 | disposition home health service (06) | DRG 380 ==
LOC: EDBD 14:58 → ER 14:58 → OVERFLOW 14:59 → CENTRAL 20:00
PROVIDERS: ADMIT Specialist; ATTEND Specialist
PROC: 0DB88ZX Excision of Small Intestine, Via Natural or Artificial Opening Endoscopic, Diagnostic (ICD-10-PCS; 2019-04-14)
PROC: 0DB58ZX Excision of Esophagus, Via Natural or Artificial Opening Endoscopic, Diagnostic (ICD-10-PCS; principal; 2019-04-14 14:28)
DX: K22.11 Ulcer of esophagus with bleeding (principal); E11.10 Type 2 diabetes mellitus with ketoacidosis without coma; N17.9 Acute kidney failure, unspecified; N18.4 Chronic kidney disease, stage 4 (severe); M86.8X7 Other osteomyelitis, ankle and foot; K29.70 Gastritis, unspecified, without bleeding; K44.9 Diaphragmatic hernia without obstruction or gangrene; E87.6 Hypokalemia; E11.22 Type 2 diabetes mellitus with diabetic chronic kidney disease; E11.69 Type 2 diabetes mellitus with other specified complication; G47.30 Sleep apnea, unspecified; N40.0 Benign prostatic hyperplasia without lower urinary tract symptoms; J45.909 Unspecified asthma, uncomplicated; I12.9 Hypertensive chronic kidney disease with stage 1 through stage 4 chronic kidney disease, or unspecified chronic kidney disease; K21.0 Gastro-esophageal reflux disease with esophagitis; Z88.1 Allergy status to other antibiotic agents; Z88.0 Allergy status to penicillin; Z88.7 Allergy status to serum and vaccine; Z89.511 Acquired absence of right leg below knee; Z79.899 Other long term (current) drug therapy
CPT/HCPCS: 36415; 36600; 71045; 74176; 80048; 80053; 82150; 82805; 82962; 83690; 83735; 85025; 85610; 85730; 86850; 86900; 86901; 87081; 93005; C9113; G0378; J0712; J1815; J2250; J2405; J3480; J3490; Q0162

== ENCOUNTER 2022-04-01 19:38 | Inpatient (IN) | payer MEDICAID, MEDICARE ==
[~2022-04-01] VITALS: Ht 177.8 cm; Wt 132.4 kg
[2022-04-01] MEDS ORDERED: VANCOMYCIN 1GM/250ML 250 ML IV ONE (20:15)
[2022-04-01] MEDS ORDERED: PIPERACILLIN-TAZOB 3.375GM 100 ML IV ONE (20:15)
[2022-04-01] MEDS ORDERED: ACETAMINOPHEN 325 MG TAB PO ONE (20:15)
[2022-04-01 21:22] LABS: Urine Bacteria FEW /hpf (None Seen); Urine Blood 3+ /uL (Negative); Urine Specific Gravity 1.017 (1.001-1.035); Urine WBC 28 /hpf (0 - 3)
[2022-04-01] MEDS ORDERED: InsuLIN REG 1unit/0.01ml Soln (100units/ml) IV ONE (22:30)
[2022-04-01 22:31] LABS: Basophils # (auto) 0 10 ^3/uL (0-0.2); Basophils % (auto) 0.2 % (0.0-2.0); Eosinophils # (auto) 0 10 ^3/uL (0-0.8); Hematocrit 41.2 % (41.0-53.0); Hemoglobin 12.7 g/dL (13.5-17.5); Lymphocytes # (auto) 0.1 10 ^3/uL (0.4-5.4); Lymphocytes % (auto) 0.8 % (10.0-50.0); Mean Corpuscular Hemoglobin 25.6 pg (28.0-32.0); Mean Corpuscular Hgb Conc. 30.8 g/dL (32.0-36.0); Mean Corpuscular Volume 83.3 fL (80.0-100.0); Monocytes # (auto) 0.1 10 ^3/uL (0-1.3); Monocytes % (auto) 0.7 % (0.0-12.0); Neutrophils # (auto) 16.7 10 ^3/uL (1.6-8.6); Neutrophils % (auto) 98.3 % (37.0-80.0); Red Blood Cells 4.95 10^6/uL (4.5-5.90); Red Cell Distribution Width 16.3 % (11.8-14.3)
[2022-04-01 22:50] LABS: Albumin 2.3 g/dL (3.4-5.0); Potassium 4.2 mmol/L (3.5-5.1)
[2022-04-01 22:53] LABS: BUN/Creatinine Ratio 15.6
[2022-04-01 22:55] LABS: Bilirubin, Total 2.4 mg/dL (0.2-1.0); Total Protein 5.9 g/dL (6.4-8.2)
[2022-04-01] MEDS ORDERED: DEXTROSE (50%) 50ML SYRG IV PRN (23:00)
[2022-04-01] MEDS ORDERED: MORPHINE SULFATE INJ 2 MG/ml SYRG IV PRN (23:00)
[2022-04-01] MEDS ORDERED: ONDANSETRON HCL 4 MG/2 ML VIAL IV PRN (23:00)
[2022-04-01] MEDS ORDERED: NITROGLYCERIN 0.4 MG SL TAB SL PRN (23:00)
[2022-04-01] MEDS ORDERED: SODIUM CHLORIDE 0.9% 1,000 ML IV SCH (23:00)
[2022-04-01 23:01] LABS: Lactic Acid w/Reflex 3.3 mmol/L (0.4-2.0)
[2022-04-02] VITALS (7 sets, daily range): BP systolic 82–109; BP diastolic 49–60
[2022-04-02] MEDS ORDERED: SODIUM CHLORIDE 0.9% 1,000 ML IV SCH ×2 (01:00→09:45)
[2022-04-02] MEDS: SODIUM CHLORIDE 0.9% 1,000 ML IV SCH ×2 (01:15→16:39)
[2022-04-02] MEDS ORDERED: DEXTROSE (50%) 50ML SYRG IV PRN ×2 (02:30→18:15)
[2022-04-02] MEDS ORDERED: ALBUMIN 5% 250 ML IV ONE (02:30)
[2022-04-02 06:31] LABS: Basophils # (auto) 0.1 10 ^3/uL (0-0.2); Basophils % (auto) 0.2 % (0.0-2.0); Eosinophils # (auto) 0 10 ^3/uL (0-0.8); Hematocrit 35.9 % (41.0-53.0); Hemoglobin 11.4 g/dL (13.5-17.5); Lymphocytes # (auto) 0.4 10 ^3/uL (0.4-5.4); Lymphocytes % (auto) 1.6 % (10.0-50.0); Mean Corpuscular Hgb Conc. 31.8 g/dL (32.0-36.0); Mean Corpuscular Volume 81.8 fL (80.0-100.0); Monocytes # (auto) 1.3 10 ^3/uL (0-1.3); Neutrophils # (auto) 23.7 10 ^3/uL (1.6-8.6); Neutrophils % (auto) 93.2 % (37.0-80.0); Nucleated Red Blood Cells % 0.1 %; Red Blood Cells 4.39 10^6/uL (4.5-5.90); Red Cell Distribution Width 16.6 % (11.8-14.3); White Blood Cell 25.4 10^3/uL (4.4-10.8)
[2022-04-02] MEDS: ACCU-CHEK COMFORT CURVE STRIP VI SCH ×4 (06:36→22:47)
[2022-04-02 06:38] LABS: Albumin 2.2 g/dL (3.4-5.0); BUN/Creatinine Ratio 13.8; Calcium 8.9 mg/dL (8.5-10.1)
[2022-04-02] MEDS: InsuLIN REG 1unit/0.01ml Soln (100units/ml) SC SCH ×4 (06:39→23:09)
[2022-04-02 06:42] LABS: Bilirubin, Total 2.7 mg/dL (0.2-1.0); Total Protein 5.7 g/dL (6.4-8.2)
[2022-04-02] MEDS ORDERED: ACCU-CHEK COMFORT CURVE STRIP VI SCH (07:00)
[2022-04-02] MEDS ORDERED: InsuLIN REG 1unit/0.01ml Soln (100units/ml) SC SCH (07:00)
[2022-04-02] MEDS ORDERED: cefTRIAXone 1GM/50ML D5W 50 ML IV SCH (09:00)
[2022-04-02] MEDS: ENOXAPARIN SOD 40 MG/0.4 ML SYRINGE SC SCH (09:23)
[2022-04-02] MEDS ORDERED: MEROPENEM 1GM IVPB 100 ML IV ONE (09:45)
[2022-04-02] MEDS ORDERED: SODIUM CHLORIDE 0.9% 1,000 ML IV ONE (10:00)
[2022-04-02 10:39] LABS: Basophils # (auto) 0 10 ^3/uL (0-0.2); Eosinophils # (auto) 0 10 ^3/uL (0-0.8); Hemoglobin 9.4 g/dL (13.5-17.5); Neutrophils # (auto) 18.4 10 ^3/uL (1.6-8.6)
[2022-04-02 10:41] LABS: Basophils % (auto) 0.1 % (0.0-2.0); Hematocrit 29.3 % (41.0-53.0); Lymphocytes # (auto) 0.6 10 ^3/uL (0.4-5.4); Lymphocytes % (auto) 2.8 % (10.0-50.0); Mean Corpuscular Hemoglobin 26.2 pg (28.0-32.0); Mean Corpuscular Hgb Conc. 32.1 g/dL (32.0-36.0); Mean Corpuscular Volume 81.7 fL (80.0-100.0); Monocytes # (auto) 1.2 10 ^3/uL (0-1.3); Monocytes % (auto) 5.8 % (0.0-12.0); Neutrophils % (auto) 91.3 % (37.0-80.0); Red Blood Cells 3.59 10^6/uL (4.5-5.90); Red Cell Distribution Width 16.4 % (11.8-14.3); White Blood Cell 20.2 10^3/uL (4.4-10.8)
[2022-04-02 10:48] LABS: INR 1.36 (0.9-1.15); Partial Thromboplastin Time 34.3 sec (24.6-33.4)
[2022-04-02 10:54] LABS: Albumin 1.6 g/dL (3.4-5.0); Calcium 6.1 mg/dL (8.5-10.1); Potassium 3.4 mmol/L (3.5-5.1)
[2022-04-02 10:55] LABS: Lactic Acid w/Reflex 2.3 mmol/L (0.4-2.0)
[2022-04-02 10:58] LABS: Bilirubin, Total 2.1 mg/dL (0.2-1.0); Total Protein 4.2 g/dL (6.4-8.2)
[2022-04-02 11:03] LABS: BUN/Creatinine Ratio 16.4
[2022-04-02 11:08] LABS: Hepatitis B Surface Antibody Negative (Negative)
[2022-04-02] MEDS: PANTOPRAZOLE 40 MG/10 ML VIAL INJ IV SCH ×2 (11:28→22:46)
[2022-04-02 11:47] LABS: Hepatitis A Total Antibody Negative (Negative)
[2022-04-02 12:26] LABS: Protein, Urine 271.7 mg/dL (0.0-11.9)
[2022-04-02 13:45] LABS: Hepatitis C Antibody Negative (Negative)
[2022-04-02] MEDS ORDERED: MEROPENEM 1GM IVPB 100 ML IV SCH (14:00)
[2022-04-02] MEDS: ALBUMIN 25% 100 ML IV SCH ×2 (14:00→18:29)
[2022-04-02] MEDS ORDERED: ALBUMIN 25% 100 ML IV ONE (18:15)
[2022-04-02] MEDS ORDERED: POTASSIUM CHL 20 Meq TABLET PO ONE (18:15)
[2022-04-02] MEDS: D5W/SOD CHL 0.45% 1,000 ML IV SCH (18:30)
[2022-04-02] MEDS: MEROPENEM 1GM IVPB 100 ML IV SCH (19:49)
[2022-04-02] MEDS: TAMSULOSIN HYDROCHLORIDE 0.4 MG CAP PO SCH (19:49)
[2022-04-02] MEDS: SUCRALFATE 1 GM TAB PO SCH (22:46)
[2022-04-02] MEDS: INSULIN LANTUS (GLARGINE) 1 /0.01ml (100units/ml) SC SCH (23:08)
[2022-04-03] MEDS: ALBUMIN 25% 100 ML IV SCH (02:04)
[2022-04-03] MEDS: MEROPENEM 1GM IVPB 100 ML IV SCH ×3 (03:29→17:51)
[2022-04-03 05:00] VITALS: BP 108/53
[2022-04-03] MEDS: ACCU-CHEK COMFORT CURVE STRIP VI SCH ×4 (06:55→21:52)
[2022-04-03] MEDS: InsuLIN REG 1unit/0.01ml Soln (100units/ml) SC SCH ×4 (06:57→21:53)
[2022-04-03 07:05] LABS: Monocytes # (auto) 0.7 10 ^3/uL (0-1.3); White Blood Cell 15.7 10^3/uL (4.4-10.8)
[2022-04-03 07:08] LABS: Potassium 4.1 mmol/L (3.5-5.1)
[2022-04-03 07:11] LABS: Basophils # (auto) 0 10 ^3/uL (0-0.2); Basophils % (auto) 0.3 % (0.0-2.0); Eosinophils # (auto) 0.2 10 ^3/uL (0-0.8); Eosinophils % (auto) 1.5 % (0.0-7.0); Hematocrit 30.8 % (41.0-53.0); Hemoglobin 10.4 g/dL (13.5-17.5); Lymphocytes # (auto) 0.5 10 ^3/uL (0.4-5.4); Lymphocytes % (auto) 3.5 % (10.0-50.0); Mean Corpuscular Hemoglobin 27.5 pg (28.0-32.0); Mean Corpuscular Hgb Conc. 33.8 g/dL (32.0-36.0); Mean Corpuscular Volume 81.5 fL (80.0-100.0); Monocytes % (auto) 4.1 % (0.0-12.0); Neutrophils # (auto) 14.2 10 ^3/uL (1.6-8.6); Neutrophils % (auto) 90.6 % (37.0-80.0); Red Blood Cells 3.78 10^6/uL (4.5-5.90); Red Cell Distribution Width 16.7 % (11.8-14.3)
[2022-04-03 07:15] LABS: Albumin 2.8 g/dL (3.4-5.0); BUN/Creatinine Ratio 15.1; Bilirubin, Total 3.1 mg/dL (0.2-1.0); Calcium 8.7 mg/dL (8.5-10.1); Magnesium 1.9 mg/dL (1.6-2.6); Phosphorus 2.8 mg/dL (2.5-4.90)
[2022-04-03] MEDS: D5W/SOD CHL 0.45% 1,000 ML IV SCH ×2 (07:35→16:44)
[2022-04-03 08:00] VITALS: BP 123/61
[2022-04-03] MEDS: ENOXAPARIN SOD 40 MG/0.4 ML SYRINGE SC SCH (09:24)
[2022-04-03] MEDS: PANTOPRAZOLE 40 MG/10 ML VIAL INJ IV SCH ×2 (09:24→21:51)
[2022-04-03] MEDS: SUCRALFATE 1 GM TAB PO SCH ×2 (09:24→21:51)
[2022-04-03] MEDS: INSULIN LANTUS (GLARGINE) 1 /0.01ml (100units/ml) SC SCH ×2 (09:28→21:52)
[2022-04-03 12:00] VITALS: BP 132/66
[2022-04-03] MEDS: traMADol HCL 50 MG TAB PO PRN ×2 (13:32→13:33)
[2022-04-03] MEDS ORDERED: oxyCODONE HCL 5MG TAB PO PRN (15:45)
[2022-04-03 16:00] VITALS: BP 119/66
[2022-04-03] MEDS: TAMSULOSIN HYDROCHLORIDE 0.4 MG CAP PO SCH (17:51)
[2022-04-03 22:00] VITALS: BP 111/57
[2022-04-04] MEDS ORDERED: SODIUM CHLORIDE 0.9% 1,500 ML IV ONE
[2022-04-04] MEDS: MEROPENEM 1GM IVPB 100 ML IV SCH ×3 (02:47→17:53)
[2022-04-04 05:00] VITALS: BP 120/58
[2022-04-04] MEDS: ACCU-CHEK COMFORT CURVE STRIP VI SCH ×4 (06:55→21:30)
[2022-04-04] MEDS: InsuLIN REG 1unit/0.01ml Soln (100units/ml) SC SCH ×4 (06:56→21:39)
[2022-04-04 07:35] LABS: Basophils # (auto) 0.1 10 ^3/uL (0-0.2); Basophils % (auto) 0.5 % (0.0-2.0); Eosinophils # (auto) 0.4 10 ^3/uL (0-0.8); Eosinophils % (auto) 3.6 % (0.0-7.0); Hematocrit 33.9 % (41.0-53.0); Lymphocytes # (auto) 0.5 10 ^3/uL (0.4-5.4); Lymphocytes % (auto) 4.6 % (10.0-50.0); Mean Corpuscular Hemoglobin 26.6 pg (28.0-32.0); Mean Corpuscular Hgb Conc. 32.4 g/dL (32.0-36.0); Mean Corpuscular Volume 82.1 fL (80.0-100.0); Monocytes # (auto) 0.5 10 ^3/uL (0-1.3); Monocytes % (auto) 4.4 % (0.0-12.0); Neutrophils # (auto) 9.6 10 ^3/uL (1.6-8.6); Neutrophils % (auto) 86.9 % (37.0-80.0); Red Blood Cells 4.13 10^6/uL (4.5-5.90); Red Cell Distribution Width 16.9 % (11.8-14.3)
[2022-04-04 07:43] LABS: Calcium 8.9 mg/dL (8.5-10.1); Potassium 4.2 mmol/L (3.5-5.1)
[2022-04-04 07:48] LABS: Albumin 2.3 g/dL (3.4-5.0); BUN/Creatinine Ratio 19.4; Bilirubin, Total 3.2 mg/dL (0.2-1.0); Total Protein 5.8 g/dL (6.4-8.2)
[2022-04-04 08:00] VITALS: BP 134/66
[2022-04-04] MEDS: PANTOPRAZOLE 40 MG/10 ML VIAL INJ IV SCH ×2 (09:40→21:25)
[2022-04-04] MEDS: ENOXAPARIN SOD 40 MG/0.4 ML SYRINGE SC SCH (09:41)
[2022-04-04] MEDS: SUCRALFATE 1 GM TAB PO SCH ×2 (09:41→21:26)
[2022-04-04] MEDS: INSULIN LANTUS (GLARGINE) 1 /0.01ml (100units/ml) SC SCH ×2 (09:42→21:38)
[2022-04-04] MEDS: FLUCONAZOLE 100 MG TAB PO SCH (11:31)
[2022-04-04 12:00] VITALS: BP 126/65
[2022-04-04] MEDS: ACETAMINOPHEN 325 MG TAB PO PRN (13:08)
[2022-04-04 16:00] VITALS: BP 112/56
[2022-04-04] MEDS: TAMSULOSIN HYDROCHLORIDE 0.4 MG CAP PO SCH (17:52)
[2022-04-04 18:51] LABS: Urine Amorphous Crystal FEW /hpf (None Seen); Urine Bacteria NONE SEEN /hpf (None Seen); Urine Blood 1+ /uL (Negative); Urine Budding Yeast MANY /hpf (None Seen); Urine Mucus FEW (None Seen); Urine Specific Gravity 1.017 (1.001-1.035); Urine WBC 466 /hpf (0 - 3); Urine WBC Clumps PRESENT /hpf (None Seen)
[2022-04-04] MEDS: traMADol HCL 50 MG TAB PO PRN (21:44)
[2022-04-04 22:00] VITALS: BP 126/66
[2022-04-05] MEDS: MEROPENEM 1GM IVPB 100 ML IV SCH ×3 (02:34→17:43)
[2022-04-05 05:00] VITALS: BP 129/64
[2022-04-05] MEDS: ACCU-CHEK COMFORT CURVE STRIP VI SCH ×4 (06:10→21:17)
[2022-04-05] MEDS: InsuLIN REG 1unit/0.01ml Soln (100units/ml) SC SCH ×4 (06:13→21:20)
[2022-04-05 08:14] LABS: Albumin 2.1 g/dL (3.4-5.0); Calcium 8.4 mg/dL (8.5-10.1); Potassium 4.1 mmol/L (3.5-5.1)
[2022-04-05 08:21] LABS: BUN/Creatinine Ratio 22.9; Bilirubin, Direct 2.3 mg/dL (0-0.2); Total Protein 4.8 g/dL (6.4-8.2); Uric Acid 4.6 mg/dL (3.5-7.2)
[2022-04-05 09:00] VITALS: BP 112/59
[2022-04-05] MEDS: PANTOPRAZOLE 40 MG/10 ML VIAL INJ IV SCH ×2 (09:13→21:06)
[2022-04-05] MEDS: SUCRALFATE 1 GM TAB PO SCH ×2 (09:13→21:06)
[2022-04-05] MEDS: FLUCONAZOLE 100 MG TAB PO SCH (09:13)
[2022-04-05] MEDS: ENOXAPARIN SOD 40 MG/0.4 ML SYRINGE SC SCH (09:14)
[2022-04-05] MEDS: INSULIN LANTUS (GLARGINE) 1 /0.01ml (100units/ml) SC SCH ×2 (09:14→21:21)
[2022-04-05 13:00] VITALS: BP 118/58
[2022-04-05 17:00] VITALS: BP 127/79
[2022-04-05] MEDS: TAMSULOSIN HYDROCHLORIDE 0.4 MG CAP PO SCH (17:43)
[2022-04-05 22:00] VITALS: BP 152/56
[2022-04-06] MEDS: MEROPENEM 1GM IVPB 100 ML IV SCH ×3 (02:23→18:22)
[2022-04-06 05:00] VITALS: BP 124/68
[2022-04-06] MEDS: ACCU-CHEK COMFORT CURVE STRIP VI SCH ×4 (06:05→22:40)
[2022-04-06] MEDS: InsuLIN REG 1unit/0.01ml Soln (100units/ml) SC SCH ×5 (06:10→22:51)
[2022-04-06 09:00] VITALS: BP 136/64
[2022-04-06] MEDS: FLUCONAZOLE 100 MG TAB PO SCH (09:53)
[2022-04-06] MEDS: ENOXAPARIN SOD 40 MG/0.4 ML SYRINGE SC SCH (09:53)
[2022-04-06] MEDS: SUCRALFATE 1 GM TAB PO SCH ×2 (09:53→22:22)
[2022-04-06] MEDS: PANTOPRAZOLE 40 MG/10 ML VIAL INJ IV SCH ×2 (09:53→22:22)
[2022-04-06 09:54] LABS: Hemoglobin 11.1 g/dL (13.5-17.5)
[2022-04-06] MEDS: INSULIN LANTUS (GLARGINE) 1 /0.01ml (100units/ml) SC SCH ×2 (09:54→22:40)
[2022-04-06 09:57] LABS: Hematocrit 34.4 % (41.0-53.0); Mean Corpuscular Hemoglobin 25.9 pg (28.0-32.0); Mean Corpuscular Hgb Conc. 32.2 g/dL (32.0-36.0); Mean Corpuscular Volume 80.2 fL (80.0-100.0); Red Blood Cells 4.29 10^6/uL (4.5-5.90); Red Cell Distribution Width 16.4 % (11.8-14.3); White Blood Cell 6.8 10^3/uL (4.4-10.8)
[2022-04-06 10:00] LABS: Calcium 8.5 mg/dL (8.5-10.1)
[2022-04-06 10:03] LABS: Basophils % (manual) 0 (0.0-2.0); Blast Cells 0; Monocytes % (manual) 0 (0-12); Promyelocytes % 0
[2022-04-06 10:04] LABS: BUN/Creatinine Ratio 25.3; Bilirubin, Total 1.7 mg/dL (0.2-1.0); Total Protein 4.9 g/dL (6.4-8.2)
[2022-04-06] MEDS: ACETAMINOPHEN 325 MG TAB PO PRN (10:59)
[2022-04-06 12:00] LABS: Band Neutrophils % (manual) 1; Lymphocytes % (manual) 15 (10.0-50.0)
[2022-04-06 12:01] LABS: Eosinophils % (manual) 2 (0-7); Metamyelocytes % 1; Myelocytes % 1; Reactive Lymphocytes 2
[2022-04-06 13:00] VITALS: BP 113/57
[2022-04-06 17:00] VITALS: BP 110/47
[2022-04-06] MEDS: TAMSULOSIN HYDROCHLORIDE 0.4 MG CAP PO SCH (17:40)
[2022-04-06] MEDS: traMADol HCL 50 MG TAB PO PRN (22:40)
[2022-04-07] MEDS: MEROPENEM 1GM IVPB 100 ML IV SCH ×3 (03:11→17:56)
[2022-04-07 05:00] VITALS: BP 114/68
[2022-04-07] MEDS: ACCU-CHEK COMFORT CURVE STRIP VI SCH ×3 (05:36→17:00)
[2022-04-07] MEDS: InsuLIN REG 1unit/0.01ml Soln (100units/ml) SC SCH ×3 (05:38→17:00)
[2022-04-07 07:00] LABS: Basophils # (auto) 0 10 ^3/uL (0-0.2); Basophils % (auto) 0.5 % (0.0-2.0); Eosinophils # (auto) 0.6 10 ^3/uL (0-0.8); Hemoglobin 11.4 g/dL (13.5-17.5); Lymphocytes # (auto) 1.2 10 ^3/uL (0.4-5.4); Monocytes # (auto) 0.9 10 ^3/uL (0-1.3); Neutrophils % (auto) 66.2 % (37.0-80.0)
[2022-04-07 07:02] LABS: Eosinophils % (auto) 7.1 % (0.0-7.0); Hematocrit 34.5 % (41.0-53.0); Lymphocytes % (auto) 14.7 % (10.0-50.0); Mean Corpuscular Hemoglobin 26.4 pg (28.0-32.0); Mean Corpuscular Volume 79.9 fL (80.0-100.0); Monocytes % (auto) 11.5 % (0.0-12.0); Neutrophils # (auto) 5.3 10 ^3/uL (1.6-8.6); Red Blood Cells 4.32 10^6/uL (4.5-5.90); Red Cell Distribution Width 16.8 % (11.8-14.3)
[2022-04-07 07:16] LABS: Potassium 4.1 mmol/L (3.5-5.1)
[2022-04-07 07:22] LABS: BUN/Creatinine Ratio 25.6; Bilirubin, Total 1.3 mg/dL (0.2-1.0); Calcium 8.7 mg/dL (8.5-10.1)
[2022-04-07 08:56] VITALS: BP 127/63
[2022-04-07] MEDS: PANTOPRAZOLE 40 MG/10 ML VIAL INJ IV SCH (09:08)
[2022-04-07] MEDS: ENOXAPARIN SOD 40 MG/0.4 ML SYRINGE SC SCH (09:08)
[2022-04-07] MEDS: FLUCONAZOLE 100 MG TAB PO SCH (09:08)
[2022-04-07] MEDS: SUCRALFATE 1 GM TAB PO SCH (09:08)
[2022-04-07] MEDS: INSULIN LANTUS (GLARGINE) 1 /0.01ml (100units/ml) SC SCH (09:09)
[2022-04-07 13:00] VITALS: BP 134/60
[2022-04-07 16:51] VITALS: BP 118/71
[2022-04-07 17:00] VITALS: BP 140/60
[2022-04-07] MEDS: TAMSULOSIN HYDROCHLORIDE 0.4 MG CAP PO SCH (17:56)
== END 2022-04-07 20:30 | disposition home health service (06) | DRG 871 ==
LOC: EDBD 19:38 → ER 19:38 → TELE 22:53 → TELE-CENTR 23:48
PROVIDERS: ADMIT Nurse Practitioner; ATTEND Internal Medicine
PROC: 05HC33Z Insertion of Infusion Device into Left Basilic Vein, Percutaneous Approach (ICD-10-PCS; principal; 2022-04-07)
PROC: B54NZZA Ultrasonography of Left Upper Extremity Veins, Guidance (ICD-10-PCS; 2022-04-07)
DX: A41.50 Gram-negative sepsis, unspecified (principal); G92.8 Other toxic encephalopathy; R65.21 Severe sepsis with septic shock; N17.0 Acute kidney failure with tubular necrosis; I50.42 Chronic combined systolic (congestive) and diastolic (congestive) heart failure; N39.0 Urinary tract infection, site not specified; E87.2 Acidosis; Z68.41 Body mass index [BMI] 40.0-44.9, adult; I13.0 Hypertensive heart and chronic kidney disease with heart failure and stage 1 through stage 4 chronic kidney disease, or unspecified chronic kidney disease; I42.9 Cardiomyopathy, unspecified; J91.8 Pleural effusion in other conditions classified elsewhere; E44.0 Moderate protein-calorie malnutrition; J44.9 Chronic obstructive pulmonary disease, unspecified; Z20.822 Contact with and (suspected) exposure to COVID-19; B96.1 Klebsiella pneumoniae [K. pneumoniae] as the cause of diseases classified elsewhere; E11.22 Type 2 diabetes mellitus with diabetic chronic kidney disease; N18.31 Chronic kidney disease, stage 3a; Z87.19 Personal history of other diseases of the digestive system; Z88.0 Allergy status to penicillin; Z88.8 Allergy status to other drugs, medicaments and biological substances; Z89.512 Acquired absence of left leg below knee
CPT/HCPCS: 36415; 71045; 74176; 76705; 76775; 76856; 78582; 80048; 80053; 80076; 81001; 82105; 82570; 82962; 83036; 83605; 83735; 83880; 83935; 84100; 84154; 84156; 84300; 84443; 84484; 84550; 85007; 85025; 85027; 85610; 85730; 86704; 86706; 86708; 86803; 87040; 87077; 87086; 87088; 87186; 87340; 87804; 93005; 93306; 93970; 96365; 96367; 97163; 97530; 99291; C9113; G0378; J0696; J1815; J2185; J2543; P9047

== ENCOUNTER 2022-05-19 08:45 | Inpatient (IN) | payer MEDICARE ==
[~2022-05-19] VITALS: Ht 190.5 cm; Wt 119.3 kg
[2022-05-19 11:59] LABS: Urine Bacteria NONE SEEN /hpf (None Seen); Urine Blood TRACE /uL (Negative); Urine Budding Yeast OCCASIONAL /hpf (None Seen); Urine Specific Gravity 1.011 (1.001-1.035); Urine WBC 475 /hpf (0 - 3); Urine WBC Clumps PRESENT /hpf (None Seen)
[2022-05-19] MEDS ORDERED: cefTRIAXone 1GM/50ML D5W 50 ML IV ONE (12:00)
[2022-05-19] MEDS ORDERED: AZTREONAM 1GM INJ 1 GM in D5W 5% 50 ML IV ONE (12:15)
[2022-05-19] MEDS ORDERED: VANCOMYCIN 1GM/250ML 250 ML IV ONE (12:15)
[2022-05-19 14:07] LABS: Basophils # (auto) 0.1 10 ^3/uL (0-0.2); Eosinophils # (auto) 0.1 10 ^3/uL (0-0.8); Eosinophils % (auto) 0.4 % (0.0-7.0); Hematocrit 42.9 % (41.0-53.0); Lymphocytes # (auto) 1.2 10 ^3/uL (0.4-5.4)
[2022-05-19 14:09] LABS: Basophils % (auto) 0.8 % (0.0-2.0); Hemoglobin 13.7 g/dL (13.5-17.5); Lymphocytes % (auto) 7.8 % (10.0-50.0); Mean Corpuscular Volume 78.2 fL (80.0-100.0); Monocytes # (auto) 1.5 10 ^3/uL (0-1.3); Monocytes % (auto) 9.4 % (0.0-12.0); Neutrophils # (auto) 12.8 10 ^3/uL (1.6-8.6); Neutrophils % (auto) 81.6 % (37.0-80.0); Red Blood Cells 5.48 10^6/uL (4.5-5.90); Red Cell Distribution Width 18.5 % (11.8-14.3); White Blood Cell 15.7 10^3/uL (4.4-10.8)
[2022-05-19] MEDS ORDERED: VANCOMYCIN PER PHARMACY 0 MG IV SCH (14:30)
[2022-05-19] MEDS ORDERED: DEXTROSE (50%) 50ML SYRG IV PRN (14:30)
[2022-05-19 14:36] LABS: Albumin 2.5 g/dL (3.4-5.0); Calcium 9.4 mg/dL (8.5-10.1); Potassium 4.5 mmol/L (3.5-5.1)
[2022-05-19 14:39] LABS: Bilirubin, Total 0.5 mg/dL (0.2-1.0); Total Protein 6.1 g/dL (6.4-8.2)
[2022-05-19] MEDS ORDERED: ALBUTEROL SULF 2.5 MG/0.5ML(0.5%) NEB SOLN NEB PRN (14:45)
[2022-05-19] MEDS ORDERED: IPRATROPIUM BROM 0.5 MG/2.5ML INH SOL NEB PRN (14:45)
[2022-05-19] MEDS ORDERED: SODIUM CHLORIDE 0.9% 500 ML IV ONE (14:45)
[2022-05-19] MEDS ORDERED: hydrALAZINE HCL 20 MG/ML VL IV PRN (14:45)
[2022-05-19] MEDS: VANCOMYCIN 1GM/250ML 250 ML IV SCH ×2 (21:00→21:25)
[2022-05-19] MEDS: ACCU-CHEK COMFORT CURVE STRIP VI SCH ×2 (21:00→21:01)
[2022-05-19] MEDS: MORPHINE SULFATE INJ 2 MG/ml SYRG IV PRN (21:01)
[2022-05-19] MEDS: ONDANSETRON HCL 4 MG/2 ML VIAL IV PRN (21:02)
[2022-05-19] MEDS: InsuLIN REG 1unit/0.01ml Soln (100units/ml) SC SCH ×2 (21:21→21:25)
[2022-05-20 00:36] VITALS: BP 130/67
[2022-05-20] MEDS: MORPHINE SULFATE INJ 2 MG/ml SYRG IV PRN ×3 (01:49→22:07)
[2022-05-20] MEDS: ONDANSETRON HCL 4 MG/2 ML VIAL IV PRN ×2 (01:50→08:09)
[2022-05-20] MEDS: VANCOMYCIN 1GM/250ML 250 ML IV SCH (04:47)
[2022-05-20 07:04] LABS: Basophils # (auto) 0.1 10 ^3/uL (0-0.2); Basophils % (auto) 0.6 % (0.0-2.0); Eosinophils # (auto) 0.6 10 ^3/uL (0-0.8); Eosinophils % (auto) 4.3 % (0.0-7.0); Hematocrit 40.3 % (41.0-53.0); Hemoglobin 12.9 g/dL (13.5-17.5); Lymphocytes # (auto) 1.1 10 ^3/uL (0.4-5.4); Lymphocytes % (auto) 7.7 % (10.0-50.0); Mean Corpuscular Hemoglobin 25.1 pg (28.0-32.0); Mean Corpuscular Hgb Conc. 32.1 g/dL (32.0-36.0); Mean Corpuscular Volume 78.1 fL (80.0-100.0); Monocytes # (auto) 1.2 10 ^3/uL (0-1.3); Monocytes % (auto) 8.6 % (0.0-12.0); Neutrophils % (auto) 78.8 % (37.0-80.0); Red Blood Cells 5.16 10^6/uL (4.5-5.90); Red Cell Distribution Width 18.1 % (11.8-14.3); White Blood Cell 13.9 10^3/uL (4.4-10.8)
[2022-05-20] MEDS: ACCU-CHEK COMFORT CURVE STRIP VI SCH ×4 (07:25→21:48)
[2022-05-20 07:27] LABS: Alanine Aminotransferase 17 U/L (16-61); Anion Gap 8 (5-15); Aspartate Aminotransferase 14 U/L (15-37); BUN/Creatinine Ratio 22.7; Blood Urea Nitrogen 20 mg/dL (7-18); Calcium 8.2 mg/dL (8.5-10.1); Carbon Dioxide 24 mmol/L (21-32); Chloride 111 mmol/L (98-107); GFR African American 112 mL/min; GFR Non-African American 93 mL/min; Glucose 152 mg/dL (74-106); Potassium 4.3 mmol/L (3.5-5.1); Sodium 143 mmol/L (136-145)
[2022-05-20] MEDS: InsuLIN REG 1unit/0.01ml Soln (100units/ml) SC SCH ×4 (07:28→21:55)
[2022-05-20 07:30] LABS: Alkaline Phosphatase 151 U/L (45-117); Bilirubin, Total 0.4 mg/dL (0.2-1.0); Total Protein 5.8 g/dL (6.4-8.2)
[2022-05-20] MEDS ORDERED: diphenhdrAMINE HCL 50 MG/1 ML VL IV ONE (09:00)
[2022-05-20] MEDS: ENOXAPARIN SOD 40 MG/0.4 ML SYRINGE SC SCH (11:59)
[2022-05-20] MEDS ORDERED: cefTRIAXone 1GM/50ML D5W 50 ML IV ONE (12:00)
[2022-05-20 16:42] VITALS: BP 126/66
[2022-05-20 22:00] VITALS: BP 123/68
[2022-05-21 05:00] VITALS: BP 102/60
[2022-05-21] MEDS: ACCU-CHEK COMFORT CURVE STRIP VI SCH ×3 (06:12→17:51)
[2022-05-21] MEDS: InsuLIN REG 1unit/0.01ml Soln (100units/ml) SC SCH ×3 (06:15→17:50)
[2022-05-21] MEDS: MORPHINE SULFATE INJ 2 MG/ml SYRG IV PRN ×2 (06:20→18:39)
[2022-05-21 09:00] VITALS: BP 101/55
[2022-05-21] MEDS: ENOXAPARIN SOD 40 MG/0.4 ML SYRINGE SC SCH (09:15)
[2022-05-21] MEDS: cefTRIAXone 1GM/50ML D5W 50 ML IV SCH (09:17)
[2022-05-21] MEDS ORDERED: DEXTROSE (50%) 50ML SYRG IV PRN (12:15)
[2022-05-21 13:00] VITALS: BP 116/59
[2022-05-21 17:02] VITALS: BP 121/73
[2022-05-21 21:23] VITALS: BP 121/60
[2022-05-22] MEDS: ACCU-CHEK COMFORT CURVE STRIP VI SCH ×4 (00:33→18:15)
[2022-05-22] MEDS: InsuLIN REG 1unit/0.01ml Soln (100units/ml) SC SCH ×4 (00:43→18:00)
[2022-05-22] MEDS: MORPHINE SULFATE INJ 2 MG/ml SYRG IV PRN (04:50)
[2022-05-22 05:58] VITALS: BP 128/72
[2022-05-22 09:00] VITALS: BP 118/58
[2022-05-22] MEDS: cefTRIAXone 1GM/50ML D5W 50 ML IV SCH (09:23)
[2022-05-22] MEDS: ENOXAPARIN SOD 40 MG/0.4 ML SYRINGE SC SCH (09:24)
[2022-05-22] MEDS ORDERED: LEVO500T31 PO (09:55)
[2022-05-22] MEDS ORDERED: INSULIN LANTUS (GLARGINE) 1 /0.01ml (100units/ml) SC SCH (10:00)
[2022-05-22 13:00] VITALS: BP 128/67
[2022-05-22 14:12] VITALS: BP 118/58
[2022-05-22 17:00] VITALS: BP 131/70
== END 2022-05-22 18:46 | disposition home health service (06) | DRG 872 ==
LOC: EDBD 08:45 → ER 08:45 → OVERFLOW 14:17 → WEST WING 05-20 13:49
PROVIDERS: ADMIT Registered Nurse; ATTEND Internal Medicine Nephrology
DX: A41.9 Sepsis, unspecified organism (principal); N39.0 Urinary tract infection, site not specified; E11.9 Type 2 diabetes mellitus without complications; E78.5 Hyperlipidemia, unspecified; I11.0 Hypertensive heart disease with heart failure; I50.9 Heart failure, unspecified; E88.09 Other disorders of plasma-protein metabolism, not elsewhere classified; J44.9 Chronic obstructive pulmonary disease, unspecified; Z82.49 Family history of ischemic heart disease and other diseases of the circulatory system; Z82.5 Family history of asthma and other chronic lower respiratory diseases; Z89.512 Acquired absence of left leg below knee; K21.9 Gastro-esophageal reflux disease without esophagitis
CPT/HCPCS: 36415; 71045; 80053; 81001; 82962; 83880; 85025; 87040; 87086; 96365; 96367; G0378; J0696; J1815; J2405; J7060

== ENCOUNTER 2022-06-18 08:31 | Inpatient (IN) | payer MEDICARE ==
[~2022-06-18] VITALS: Ht 182.9 cm; Wt 119.0 kg
[~2022-06-18 08:31] MED LIST: LEVO500T31 PO
[2022-06-18 09:05] LABS: Basophils # (auto) 0.1 10 ^3/uL (0-0.2); Lymphocytes # (auto) 2.6 10 ^3/uL (0.4-5.4); Monocytes # (auto) 1.1 10 ^3/uL (0-1.3); Neutrophils # (auto) 4.6 10 ^3/uL (1.6-8.6)
[2022-06-18 09:07] LABS: Basophils % (auto) 1.2 % (0.0-2.0); Eosinophils # (auto) 0.8 10 ^3/uL (0-0.8); Eosinophils % (auto) 8.6 % (0.0-7.0); Hematocrit 43.3 % (41.0-53.0); Lymphocytes % (auto) 28.3 % (10.0-50.0); Mean Corpuscular Hemoglobin 25.5 pg (28.0-32.0); Mean Corpuscular Hgb Conc. 32.3 g/dL (32.0-36.0); Mean Corpuscular Volume 78.8 fL (80.0-100.0); Monocytes % (auto) 11.7 % (0.0-12.0); Neutrophils % (auto) 50.2 % (37.0-80.0); Nucleated Red Blood Cells % 0.1 %; Red Cell Distribution Width 18.2 % (11.8-14.3); White Blood Cell 9.2 10^3/uL (4.4-10.8)
[2022-06-18 09:26] LABS: Albumin 2.5 g/dL (3.4-5.0); Calcium 8.8 mg/dL (8.5-10.1)
[2022-06-18 09:32] LABS: BUN/Creatinine Ratio 21.4; Bilirubin, Total 0.3 mg/dL (0.2-1.0); Potassium 3.8 mmol/L (3.5-5.1); Total Protein 6.5 g/dL (6.4-8.2)
[2022-06-18 09:50] LABS: Urine WBC None Seen /hpf (0 - 3)
[2022-06-18] MEDS ORDERED: HYDROcodone-ACET 5/325MG TAB PO ONE (10:30)
[2022-06-18] MEDS ORDERED: SODIUM CHLORIDE 0.9% 1,000 ML IV ONE (10:30)
[2022-06-18 11:41] LABS: Urine Bacteria NONE SEEN /hpf (None Seen); Urine Blood 3+ /uL (Negative); Urine Specific Gravity 1.022 (1.001-1.035)
[2022-06-18] MEDS ORDERED: cefTRIAXone 1GM/50ML D5W 50 ML IV ONE (13:00)
[2022-06-18] MEDS ORDERED: HYDROmorphone HCL 2 MG/ML VL/or syr IV ONE (14:00)
[2022-06-18] MEDS ORDERED: DOCUSATE SOD 100 MG CAP PO PRN (14:30)
[2022-06-18] MEDS ORDERED: DEXTROSE (50%) 50ML SYRG IV PRN (14:30)
[2022-06-18 14:42] LABS: Cholesterol 144 mg/dL (< 200); HDL Cholesterol 40 mg/dL (40-59); LDL Cholesterol 93 mg/dL (< 100); Triglycerides 102 mg/dL (< 150)
[2022-06-18] MEDS ORDERED: ALBUTEROL SULF 2.5 MG/0.5ML(0.5%) NEB SOLN NEB PRN (14:45)
[2022-06-18] MEDS ORDERED: KETOROLAC TROMETH 30 MG/ML 1ML VIAL IV ONE (15:45)
[2022-06-18 16:22] VITALS: BP 114/41
[2022-06-18 16:35] VITALS: BP 127/62
[2022-06-18] MEDS ORDERED: MAGN400S25 PO (17:09)
[2022-06-18] MEDS: ACCU-CHEK COMFORT CURVE STRIP VI SCH ×2 (18:02→22:00)
[2022-06-18] MEDS: InsuLIN REG 1unit/0.01ml Soln (100units/ml) SC SCH ×2 (18:02→23:11)
[2022-06-18] MEDS ORDERED: INSU70IN3 SC (18:11)
[2022-06-18] MEDS: TAMSULOSIN HYDROCHLORIDE 0.4 MG CAP PO SCH (19:17)
[2022-06-18 22:00] VITALS: BP 109/68
[2022-06-18] MEDS: SODIUM CHLORIDE 0.9% 1,000 ML IV SCH (23:13)
[2022-06-19 05:00] VITALS: BP 115/58
[2022-06-19 05:48] LABS: Basophils # (auto) 0.1 10 ^3/uL (0-0.2); Eosinophils # (auto) 0.1 10 ^3/uL (0-0.8); Neutrophils # (auto) 11.7 10 ^3/uL (1.6-8.6); Red Cell Distribution Width 18.1 % (11.8-14.3)
[2022-06-19 05:51] LABS: Basophils % (auto) 0.8 % (0.0-2.0); Eosinophils % (auto) 0.5 % (0.0-7.0); Hematocrit 37.9 % (41.0-53.0); Lymphocytes # (auto) 1.1 10 ^3/uL (0.4-5.4); Lymphocytes % (auto) 7.9 % (10.0-50.0); Mean Corpuscular Hemoglobin 25.1 pg (28.0-32.0); Mean Corpuscular Hgb Conc. 31.7 g/dL (32.0-36.0); Mean Corpuscular Volume 79.3 fL (80.0-100.0); Monocytes # (auto) 0.9 10 ^3/uL (0-1.3); Monocytes % (auto) 6.8 % (0.0-12.0); Nucleated Red Blood Cells % 0.1 %; Red Blood Cells 4.78 10^6/uL (4.5-5.90)
[2022-06-19 05:58] LABS: Albumin 2.3 g/dL (3.4-5.0); Calcium 8.6 mg/dL (8.5-10.1); Potassium 4.7 mmol/L (3.5-5.1)
[2022-06-19 06:02] LABS: Bilirubin, Total 0.4 mg/dL (0.2-1.0); Total Protein 5.3 g/dL (6.4-8.2)
[2022-06-19] MEDS: ACCU-CHEK COMFORT CURVE STRIP VI SCH ×4 (06:20→22:00)
[2022-06-19] MEDS: InsuLIN REG 1unit/0.01ml Soln (100units/ml) SC SCH ×4 (06:21→22:00)
[2022-06-19] MEDS: SODIUM CHLORIDE 0.9% 1,000 ML IV SCH ×2 (07:10→22:35)
[2022-06-19 09:00] VITALS: BP 97/58
[2022-06-19] MEDS ORDERED: levoFLOXacin 500MG 100 ML IV SCH (10:00)
[2022-06-19 13:00] VITALS: BP 116/60
[2022-06-19] MEDS ORDERED: DOCUSATE SOD 100 MG CAP PO ONE (14:15)
[2022-06-19] MEDS ORDERED: HYDROcodone-ACET 5/325MG TAB PO PRN (14:15)
[2022-06-19] MEDS ORDERED: ERTAPENEM SOD INJ 1 GM in SODIUM CHL 0.9% 50 ML IV ONE (14:15)
[2022-06-19] MEDS ORDERED: HYDROmorphone HCL 2 MG/ML VL/or syr IV ONE (16:45)
[2022-06-19 17:00] VITALS: BP 108/58
[2022-06-19] MEDS: TAMSULOSIN HYDROCHLORIDE 0.4 MG CAP PO SCH (18:35)
[2022-06-19 19:31] LABS: INR 0.98 (0.9-1.15)
[2022-06-19] MEDS: DOCUSATE SOD 100 MG CAP PO SCH (22:00)
[2022-06-19] MEDS: MORPHINE SULFATE INJ 2 MG/ml SYRG IV PRN (22:36)
[2022-06-19] MEDS: ONDANSETRON HCL 4 MG/2 ML VIAL IV PRN (22:38)
[2022-06-19 23:23] VITALS: BP 108/64
[2022-06-20] MEDS: ONDANSETRON HCL 4 MG/2 ML VIAL IV PRN (02:05)
[2022-06-20 05:28] VITALS: BP 126/60
[2022-06-20 06:30] LABS: Basophils # (auto) 0.1 10 ^3/uL (0-0.2); Basophils % (auto) 0.9 % (0.0-2.0); Eosinophils # (auto) 0.7 10 ^3/uL (0-0.8); Eosinophils % (auto) 7.1 % (0.0-7.0); Hematocrit 27.4 % (41.0-53.0); Hemoglobin 9.2 g/dL (13.5-17.5); Lymphocytes # (auto) 1.5 10 ^3/uL (0.4-5.4); Lymphocytes % (auto) 15.1 % (10.0-50.0); Mean Corpuscular Hemoglobin 25.9 pg (28.0-32.0); Mean Corpuscular Hgb Conc. 33.4 g/dL (32.0-36.0); Mean Corpuscular Volume 77.6 fL (80.0-100.0); Monocytes # (auto) 1.2 10 ^3/uL (0-1.3); Monocytes % (auto) 11.5 % (0.0-12.0); Neutrophils # (auto) 6.7 10 ^3/uL (1.6-8.6); Neutrophils % (auto) 65.4 % (37.0-80.0); Red Blood Cells 3.54 10^6/uL (4.5-5.90); White Blood Cell 10.2 10^3/uL (4.4-10.8)
[2022-06-20 06:36] LABS: INR 0.98 (0.9-1.15); Partial Thromboplastin Time 27.4 sec (24.6-33.4)
[2022-06-20 06:45] LABS: Potassium 4.4 mmol/L (3.5-5.1)
[2022-06-20 06:53] LABS: BUN/Creatinine Ratio 28.2; Calcium 8.4 mg/dL (8.5-10.1)
[2022-06-20] MEDS: ACCU-CHEK COMFORT CURVE STRIP VI SCH ×4 (07:07→22:43)
[2022-06-20] MEDS: InsuLIN REG 1unit/0.01ml Soln (100units/ml) SC SCH ×4 (07:08→22:45)
[2022-06-20 09:00] VITALS: BP 119/54
[2022-06-20] MEDS: DOCUSATE SOD 100 MG CAP PO SCH ×2 (10:15→22:44)
[2022-06-20] MEDS: ERTAPENEM SOD INJ 1 GM in SODIUM CHL 0.9% 50 ML IV SCH (10:15)
[2022-06-20 12:30] VITALS: BP_SYST 104; BP_SYST 134; BP_DIAS 47; BP_DIAS 71
[2022-06-20] MEDS: SODIUM CHLORIDE 0.9% 1,000 ML IV SCH (16:55)
[2022-06-20 17:20] VITALS: BP 123/48
[2022-06-20] MEDS: TAMSULOSIN HYDROCHLORIDE 0.4 MG CAP PO SCH (18:00)
[2022-06-20 23:41] VITALS: BP 97/23
[2022-06-21 06:18] LABS: Basophils # (auto) 0.1 10 ^3/uL (0-0.2); Basophils % (auto) 0.9 % (0.0-2.0); Eosinophils # (auto) 0.8 10 ^3/uL (0-0.8); Eosinophils % (auto) 9.4 % (0.0-7.0); Hematocrit 23.7 % (41.0-53.0); Hemoglobin 7.9 g/dL (13.5-17.5); Lymphocytes # (auto) 1.9 10 ^3/uL (0.4-5.4); Lymphocytes % (auto) 21.6 % (10.0-50.0); Mean Corpuscular Hemoglobin 26.5 pg (28.0-32.0); Mean Corpuscular Hgb Conc. 33.4 g/dL (32.0-36.0); Mean Corpuscular Volume 79.5 fL (80.0-100.0); Monocytes # (auto) 0.8 10 ^3/uL (0-1.3); Monocytes % (auto) 9.3 % (0.0-12.0); Neutrophils # (auto) 5.2 10 ^3/uL (1.6-8.6); Neutrophils % (auto) 58.8 % (37.0-80.0); Red Blood Cells 2.98 10^6/uL (4.5-5.90); White Blood Cell 8.9 10^3/uL (4.4-10.8)
[2022-06-21 06:30] VITALS: BP 122/37
[2022-06-21 06:38] LABS: Potassium 4.4 mmol/L (3.5-5.1)
[2022-06-21 06:43] LABS: BUN/Creatinine Ratio 28.4
[2022-06-21] MEDS: ACCU-CHEK COMFORT CURVE STRIP VI SCH ×4 (06:54→22:00)
[2022-06-21] MEDS: InsuLIN REG 1unit/0.01ml Soln (100units/ml) SC SCH ×4 (06:54→22:00)
[2022-06-21] MEDS: MORPHINE SULFATE INJ 2 MG/ml SYRG IV PRN (08:45)
[2022-06-21 09:08] VITALS: BP 125/51
[2022-06-21] MEDS: SODIUM CHLORIDE 0.9% 1,000 ML IV SCH (09:10)
[2022-06-21] MEDS: ERTAPENEM SOD INJ 1 GM in SODIUM CHL 0.9% 50 ML IV SCH (10:53)
[2022-06-21] MEDS: DOCUSATE SOD 100 MG CAP PO SCH ×2 (10:53→22:00)
[2022-06-21 13:00] VITALS: BP 105/63
[2022-06-21 16:59] VITALS: BP 108/52
[2022-06-21] MEDS: TAMSULOSIN HYDROCHLORIDE 0.4 MG CAP PO SCH (18:01)
[2022-06-21 21:52] VITALS: BP 105/65
[2022-06-22] VITALS (9 sets, daily range): BP systolic 110–132; BP diastolic 52–65
[2022-06-22] MEDS: SODIUM CHLORIDE 0.9% 1,000 ML IV SCH (01:50)
[2022-06-22 05:24] LABS: Basophils # (auto) 0.1 10 ^3/uL (0-0.2); Hemoglobin 7.4 g/dL (13.5-17.5); Mean Corpuscular Volume 78.4 fL (80.0-100.0); Neutrophils # (auto) 3.8 10 ^3/uL (1.6-8.6)
[2022-06-22 05:26] LABS: Eosinophils # (auto) 0.7 10 ^3/uL (0-0.8); Eosinophils % (auto) 9.2 % (0.0-7.0); Lymphocytes % (auto) 26.6 % (10.0-50.0); Mean Corpuscular Hemoglobin 26.5 pg (28.0-32.0); Mean Corpuscular Hgb Conc. 33.8 g/dL (32.0-36.0); Monocytes # (auto) 0.9 10 ^3/uL (0-1.3); Monocytes % (auto) 11.7 % (0.0-12.0); Neutrophils % (auto) 51.5 % (37.0-80.0); Red Cell Distribution Width 17.4 % (11.8-14.3); White Blood Cell 7.5 10^3/uL (4.4-10.8)
[2022-06-22 05:41] LABS: Calcium 7.9 mg/dL (8.5-10.1); Potassium 3.8 mmol/L (3.5-5.1)
[2022-06-22 05:45] LABS: BUN/Creatinine Ratio 22.5; Bilirubin, Total 0.3 mg/dL (0.2-1.0); Total Protein 4.5 g/dL (6.4-8.2)
[2022-06-22] MEDS: ACCU-CHEK COMFORT CURVE STRIP VI SCH ×3 (07:00→21:20)
[2022-06-22] MEDS: InsuLIN REG 1unit/0.01ml Soln (100units/ml) SC SCH ×3 (07:00→21:23)
[2022-06-22] MEDS: DOCUSATE SOD 100 MG CAP PO SCH ×2 (10:33→21:20)
[2022-06-22] MEDS: ERTAPENEM SOD INJ 1 GM in SODIUM CHL 0.9% 50 ML IV SCH (10:34)
[2022-06-22] MEDS: TAMSULOSIN HYDROCHLORIDE 0.4 MG CAP PO SCH (18:00)
[2022-06-22] MEDS ORDERED: fentaNYL CITRATE 100 MCG/2 ML VL ONE (18:35)
[2022-06-22] MEDS ORDERED: ONDANSETRON HCL 4 MG/2 ML VIAL ONE (18:36)
[2022-06-22] MEDS ORDERED: GLYCOPYRROLATE 0.2 MG/ML 1ML VIAL ONE (18:36)
[2022-06-22] MEDS ORDERED: KETAMINE HCL 10 ML ONE (18:36)
[2022-06-22] MEDS ORDERED: MIDAZOLAM HCL 2MG/2ML 2ml VIAL (1mg/ml) ONE (18:36)
[2022-06-22] MEDS ORDERED: MEPERIDINE HCL (50 MG/ML) 1 ML VIAL ONE (19:14)
[2022-06-22] MEDS ORDERED: HYDROmorphone HCL 2 MG/ML VL/or syr IV PRN (19:45)
[2022-06-22] MEDS ORDERED: ONDANSETRON HCL 4 MG/2 ML VIAL IV PRN (19:45)
[2022-06-22] MEDS ORDERED: ACCU-CHEK COMFORT CURVE STRIP VI ONE (19:45)
[2022-06-23] MEDS: MORPHINE SULFATE INJ 2 MG/ml SYRG IV PRN ×2 (01:28→10:10)
[2022-06-23] MEDS: SODIUM CHLORIDE 0.9% 1,000 ML IV SCH ×2 (01:29→11:10)
[2022-06-23 05:00] VITALS: BP 129/62
[2022-06-23 05:49] LABS: Basophils # (auto) 0.1 10 ^3/uL (0-0.2); Basophils % (auto) 0.8 % (0.0-2.0); Eosinophils # (auto) 0.4 10 ^3/uL (0-0.8); Eosinophils % (auto) 5.6 % (0.0-7.0); Hematocrit 26.2 % (41.0-53.0); Hemoglobin 8.6 g/dL (13.5-17.5); Lymphocytes # (auto) 1.8 10 ^3/uL (0.4-5.4); Mean Corpuscular Hemoglobin 27.1 pg (28.0-32.0); Mean Corpuscular Hgb Conc. 32.7 g/dL (32.0-36.0); Mean Corpuscular Volume 82.8 fL (80.0-100.0); Monocytes # (auto) 0.8 10 ^3/uL (0-1.3); Monocytes % (auto) 10.6 % (0.0-12.0); Neutrophils # (auto) 4.7 10 ^3/uL (1.6-8.6); Nucleated Red Blood Cells % 0.2 %; Red Blood Cells 3.16 10^6/uL (4.5-5.90); Red Cell Distribution Width 17.5 % (11.8-14.3); White Blood Cell 7.8 10^3/uL (4.4-10.8)
[2022-06-23 06:07] LABS: Calcium 7.6 mg/dL (8.5-10.1); Potassium 4.5 mmol/L (3.5-5.1)
[2022-06-23] MEDS: ACCU-CHEK COMFORT CURVE STRIP VI SCH ×2 (06:23→12:34)
[2022-06-23] MEDS: InsuLIN REG 1unit/0.01ml Soln (100units/ml) SC SCH ×2 (06:30→12:37)
[2022-06-23 08:00] VITALS: BP 126/50
[2022-06-23] MEDS: DOCUSATE SOD 100 MG CAP PO SCH (09:42)
[2022-06-23] MEDS: ERTAPENEM SOD INJ 1 GM in SODIUM CHL 0.9% 50 ML IV SCH (09:42)
[2022-06-23] MEDS ORDERED: BELLADONNA ALKAL/OPIUM (16.2/30MG) RECT SUPP PR SCH (10:00)
[2022-06-23] MEDS ORDERED: FINASTERIDE 5 MG TAB PO SCH (10:00)
[2022-06-23 12:00] VITALS: BP_SYST 117; BP_DIAS 51; BP_DIAS 76
[2022-06-23] MEDS ORDERED: FIN5T PO (12:51)
[2022-06-23] MEDS ORDERED: CEFU500T43 PO (12:51)
[2022-06-23] MEDS ORDERED: TAM04C PO (12:51)
== END 2022-06-23 16:56 | disposition home or self-care (01) | DRG 854 ==
LOC: EDBD 08:31 → ER 08:31 → OVERFLOW 14:23 → WEST WING 16:19
PROVIDERS: ADMIT Nurse Practitioner Family; ATTEND Internal Medicine
PROC: 0W3R8ZZ Control Bleeding in Genitourinary Tract, Via Natural or Artificial Opening Endoscopic (ICD-10-PCS; 2022-06-22)
PROC: 30233N1 Transfusion of Nonautologous Red Blood Cells into Peripheral Vein, Percutaneous Approach (ICD-10-PCS; 2022-06-22)
PROC: 0T5C8ZZ Destruction of Bladder Neck, Via Natural or Artificial Opening Endoscopic (ICD-10-PCS; principal; 2022-06-22 18:41)
DX: A41.9 Sepsis, unspecified organism (principal); E46 Unspecified protein-calorie malnutrition; N30.01 Acute cystitis with hematuria; I13.0 Hypertensive heart and chronic kidney disease with heart failure and stage 1 through stage 4 chronic kidney disease, or unspecified chronic kidney disease; I50.32 Chronic diastolic (congestive) heart failure; R33.9 Retention of urine, unspecified; E78.5 Hyperlipidemia, unspecified; Z20.822 Contact with and (suspected) exposure to COVID-19; I25.10 Atherosclerotic heart disease of native coronary artery without angina pectoris; E11.22 Type 2 diabetes mellitus with diabetic chronic kidney disease; N18.9 Chronic kidney disease, unspecified; K59.00 Constipation, unspecified; J43.9 Emphysema, unspecified; E66.9 Obesity, unspecified; D64.9 Anemia, unspecified; I25.2 Old myocardial infarction; Z88.8 Allergy status to other drugs, medicaments and biological substances; Z88.0 Allergy status to penicillin; Z79.899 Other long term (current) drug therapy; Z68.34 Body mass index [BMI] 34.0-34.9, adult; Z89.512 Acquired absence of left leg below knee; Z82.5 Family history of asthma and other chronic lower respiratory diseases; Z82.49 Family history of ischemic heart disease and other diseases of the circulatory system; Z79.4 Long term (current) use of insulin
CPT/HCPCS: 36415; 51702; 71045; 74176; 76775; 80048; 80053; 80061; 81001; 82962; 83036; 84154; 85025; 85610; 85730; 86850; 86900; 86901; 86920; 87086; 93005; 96361; 96365; G0378; J0696; J1335; J1815; J1885; J2250; J2405

== ENCOUNTER 2022-10-19 09:47 | Emergency (ER) | payer MEDICARE, OTHER ==
[~2022-10-19] VITALS: Ht 190.5 cm; Wt 128.0 kg
[~2022-10-19 09:47] MED LIST changes: +CEFU500T43 PO; +FIN5T PO; +FLUC200T50 PO; +INSU70IN3 SC; -LEVO500T31 PO; +MAGN400S25 PO; +TAM04C PO; +TOLT1CAP26 PO
[2022-10-19 10:00] VITALS: BP 128/67
== END 2022-10-19 16:32 | disposition left against medical advice (07) ==
LOC: ER 09:47
DX: J45.909 Unspecified asthma, uncomplicated (principal); J44.9 Chronic obstructive pulmonary disease, unspecified; K21.9 Gastro-esophageal reflux disease without esophagitis; E78.5 Hyperlipidemia, unspecified; F12.90 Cannabis use, unspecified, uncomplicated; I11.0 Hypertensive heart disease with heart failure; E11.9 Type 2 diabetes mellitus without complications; Z46.6 Encounter for fitting and adjustment of urinary device; Z88.0 Allergy status to penicillin; Z88.1 Allergy status to other antibiotic agents; Z88.8 Allergy status to other drugs, medicaments and biological substances; Z79.899 Other long term (current) drug therapy

== ENCOUNTER 2022-10-21 06:12 | Emergency (ER) | payer OTHER ==
[~2022-10-21] VITALS: Ht 190.5 cm; Wt 127.0 kg
[2022-10-21 06:12] VITALS: BP 134/70
[2022-10-21 13:17] LABS: Urine Bacteria NONE SEEN /hpf (None Seen); Urine Blood 1+ /uL (Negative); Urine WBC 4366 /hpf (0 - 3); Urine WBC Clumps PRESENT /hpf (None Seen)
[2022-10-21 13:19] LABS: Urine Specific Gravity 1.025 (1.001-1.035)
[2022-10-21] MEDS ORDERED: NITR-87 PO (13:29)
== END 2022-10-21 19:20 | disposition left against medical advice (07) ==
LOC: ER 06:12
DX: T83.098A Other mechanical complication of other urinary catheter, initial encounter (principal); N39.0 Urinary tract infection, site not specified; J45.909 Unspecified asthma, uncomplicated; K21.9 Gastro-esophageal reflux disease without esophagitis; E78.5 Hyperlipidemia, unspecified; I11.0 Hypertensive heart disease with heart failure; E11.9 Type 2 diabetes mellitus without complications; F12.90 Cannabis use, unspecified, uncomplicated; Z88.0 Allergy status to penicillin; Z88.1 Allergy status to other antibiotic agents; Z79.899 Other long term (current) drug therapy; Z98.890 Other specified postprocedural states
CPT/HCPCS: 51702; 81001

== ENCOUNTER 2022-10-28 07:09 | Emergency (ER) | payer OTHER ==
[~2022-10-28] VITALS: Ht 190.5 cm; Wt 125.0 kg
[~2022-10-28 07:09] MED LIST changes: +NITR-87 PO
[2022-10-28 07:20] VITALS: BP 127/62
[2022-10-28] MEDS ORDERED: CIPR-173 PO ×4 (08:15→08:16)
[2022-10-28] MEDS ORDERED: TAM04C PO ×3 (08:15→08:16)
[2022-10-28] MEDS ORDERED: BACDST PO (08:27)
== END 2022-10-28 08:24 | disposition home or self-care (01) ==
LOC: ER 07:09
DX: T83.038A Leakage of other urinary catheter, initial encounter (principal); N39.0 Urinary tract infection, site not specified; J45.909 Unspecified asthma, uncomplicated; I11.0 Hypertensive heart disease with heart failure; I50.9 Heart failure, unspecified; E11.9 Type 2 diabetes mellitus without complications; K21.9 Gastro-esophageal reflux disease without esophagitis; E78.5 Hyperlipidemia, unspecified; F12.90 Cannabis use, unspecified, uncomplicated; Z98.890 Other specified postprocedural states; Z88.0 Allergy status to penicillin; Z88.8 Allergy status to other drugs, medicaments and biological substances; Z79.899 Other long term (current) drug therapy
CPT/HCPCS: 51702

== ENCOUNTER 2022-10-30 06:44 | Emergency (ER) | payer OTHER ==
[~2022-10-30] VITALS: Ht 190.5 cm; Wt 127.2 kg
[~2022-10-30 06:44] MED LIST changes: +BACDST PO
[2022-10-30 08:45] VITALS: BP 135/48
[2022-10-30] MEDS ORDERED: OXYB5TAB24 PO (10:04)
== END 2022-10-30 10:19 | disposition home or self-care (01) ==
LOC: ER 06:44
DX: T83.038A Leakage of other urinary catheter, initial encounter (principal); J45.909 Unspecified asthma, uncomplicated; K21.9 Gastro-esophageal reflux disease without esophagitis; E78.5 Hyperlipidemia, unspecified; I11.0 Hypertensive heart disease with heart failure; I50.9 Heart failure, unspecified; E11.9 Type 2 diabetes mellitus without complications; F12.90 Cannabis use, unspecified, uncomplicated; Z98.890 Other specified postprocedural states; Z88.0 Allergy status to penicillin; Z88.7 Allergy status to serum and vaccine; Z88.8 Allergy status to other drugs, medicaments and biological substances; Z79.899 Other long term (current) drug therapy
CPT/HCPCS: 51702

== ENCOUNTER → 2022-12-15 | Outpatient (CLI) | payer MEDICARE ==
[~2022-12-15] MED LIST changes: +NITR-52 PO; +OXYB5TAB24 PO
== END | disposition home or self-care (01) ==
LOC: LAB 14:39
DX: E11.8 Type 2 diabetes mellitus with unspecified complications (principal)
CPT/HCPCS: 36415; 83036

== ENCOUNTER → 2022-12-21 | Outpatient (CLI) | payer MEDICARE, OTHER | END | disposition home or self-care (01) | LOC: XYW 11:44 | DX: I51.89 Other ill-defined heart diseases (principal) | CPT/HCPCS: 93306 ==

== ENCOUNTER 2023-01-06 06:22 | Emergency (ER) | payer OTHER ==
[~2023-01-06] VITALS: Ht 190.5 cm; Wt 127.2 kg
[2023-01-06 07:25] VITALS: BP 160/80
== END 2023-01-06 08:28 | disposition home or self-care (01) ==
LOC: ER 06:22
DX: T83.038A Leakage of other urinary catheter, initial encounter (principal); J45.909 Unspecified asthma, uncomplicated; J44.9 Chronic obstructive pulmonary disease, unspecified; K21.9 Gastro-esophageal reflux disease without esophagitis; E78.5 Hyperlipidemia, unspecified; I11.0 Hypertensive heart disease with heart failure; I50.89 Other heart failure; E11.9 Type 2 diabetes mellitus without complications; F12.90 Cannabis use, unspecified, uncomplicated; Z88.0 Allergy status to penicillin; Z88.8 Allergy status to other drugs, medicaments and biological substances; Z79.899 Other long term (current) drug therapy; Z79.4 Long term (current) use of insulin
CPT/HCPCS: 51702

== ENCOUNTER → 2023-01-19 | Outpatient (CLI) | payer OTHER ==
[2023-01-19 08:40] LABS: Eosinophils # (auto) 0.7 10 ^3/uL (0-0.8); Lymphocytes # (auto) 2.5 10 ^3/uL (0.4-5.4); Mean Corpuscular Volume 76.9 fL (80.0-100.0); Monocytes # (auto) 0.9 10 ^3/uL (0-1.3)
[2023-01-19 08:43] LABS: Basophils # (auto) 0.2 10 ^3/uL (0-0.2); Basophils % (auto) 2.2 % (0.0-2.0); Eosinophils % (auto) 9.2 % (0.0-7.0); Mean Corpuscular Hgb Conc. 32.5 g/dL (32.0-36.0); Monocytes % (auto) 12.1 % (0.0-12.0); Neutrophils # (auto) 3.5 10 ^3/uL (1.6-8.6); Neutrophils % (auto) 44.5 % (37.0-80.0); Nucleated Red Blood Cells % 0.1 %; White Blood Cell 7.9 10^3/uL (4.4-10.8)
[2023-01-19 08:50] LABS: Red Cell Distribution Width 20.8 % (11.8-14.3)
[2023-01-19 08:58] LABS: Urine Bacteria FEW /hpf (None Seen); Urine Blood Negative /uL (Negative); Urine Budding Yeast MODERATE /hpf (None Seen); Urine Specific Gravity 1.017 (1.001-1.035); Urine WBC 118 /hpf (0 - 3); Urine WBC Clumps PRESENT /hpf (None Seen)
[2023-01-19 09:10] LABS: Albumin 2.7 g/dL (3.4-5.0)
[2023-01-19 09:17] LABS: BUN/Creatinine Ratio 25.5 (10.0-20.0); Bilirubin, Total 0.3 mg/dL (0.2-1.0); Total Protein 6.4 g/dL (6.4-8.2)
== END | disposition home or self-care (01) ==
LOC: LAB 08:15
PROVIDERS: ATTEND Student in an Organized Health Care Education/Training Program
DX: Z12.11 Encounter for screening for malignant neoplasm of colon (principal); I10 Essential (primary) hypertension; E11.9 Type 2 diabetes mellitus without complications; R33.9 Retention of urine, unspecified; N39.0 Urinary tract infection, site not specified
CPT/HCPCS: 36415; 80053; 80061; 81001; 83036; 84153; 84443; 85025

== ENCOUNTER → 2023-02-18 | Outpatient (CLI) | payer OTHER ==
[~2023-02-18] VITALS: Ht 190.5 cm; Wt 127.0 kg
[~2023-02-18] MED LIST changes: +REGADENOSON 0.4 MG/5 ML SYRG IV ONE; -TAM04C PO; +TAMS-35 PO
== END | disposition home or self-care (01) ==
LOC: XYW 07:18
PROVIDERS: ATTEND Internal Medicine
DX: I13.0 Hypertensive heart and chronic kidney disease with heart failure and stage 1 through stage 4 chronic kidney disease, or unspecified chronic kidney disease (principal); I50.32 Chronic diastolic (congestive) heart failure; N18.2 Chronic kidney disease, stage 2 (mild); E11.65 Type 2 diabetes mellitus with hyperglycemia; I70.0 Atherosclerosis of aorta; I42.9 Cardiomyopathy, unspecified; E78.5 Hyperlipidemia, unspecified; G47.33 Obstructive sleep apnea (adult) (pediatric)
CPT/HCPCS: 78452; 93017; A9500; J2785

== ENCOUNTER → 2023-03-11 | Outpatient (CLI) | payer OTHER ==
[~2023-03-11] MED LIST changes: -REGADENOSON 0.4 MG/5 ML SYRG IV ONE
[2023-03-11 08:44] LABS: Urine Bacteria NONE SEEN /hpf (None Seen); Urine Blood Negative /uL (Negative); Urine Budding Yeast FEW /hpf (None Seen); Urine Specific Gravity 1.023 (1.001-1.035); Urine WBC 269 /hpf (0 - 3); Urine WBC Clumps PRESENT /hpf (None Seen)
[2023-03-11 09:40] LABS: Albumin 2.8 g/dL (3.4-5.0); Calcium 8.3 mg/dL (8.5-10.1); Potassium 4.3 mmol/L (3.5-5.1)
[2023-03-11 09:42] LABS: BUN/Creatinine Ratio 21.1 (10.0-20.0); Bilirubin, Total 0.3 mg/dL (0.2-1.0); Total Protein 6.3 g/dL (6.4-8.2)
== END | disposition home or self-care (01) ==
LOC: LAB 08:03
PROVIDERS: ATTEND Student in an Organized Health Care Education/Training Program
DX: E78.5 Hyperlipidemia, unspecified (principal); R73.03 Prediabetes; Z90.81 Acquired absence of spleen
CPT/HCPCS: 36415; 80053; 80061; 81001; 82607; 83036; 86706; 87086; 87088; 87186

== ENCOUNTER 2023-04-17 07:57 | Emergency (ER) | payer OTHER ==
[~2023-04-17] VITALS: Ht 190.5 cm; Wt 127.2 kg
[2023-04-17 08:44] VITALS: BP 140/38; PULSE 93; RESP 16; TEMP 98.5; O2SAT 97
== END 2023-04-17 09:22 | disposition home or self-care (01) ==
LOC: ER 07:57
DX: T83.091A Other mechanical complication of indwelling urethral catheter, initial encounter (principal); I11.0 Hypertensive heart disease with heart failure; I50.9 Heart failure, unspecified; J44.9 Chronic obstructive pulmonary disease, unspecified; E11.9 Type 2 diabetes mellitus without complications; K21.9 Gastro-esophageal reflux disease without esophagitis; E78.5 Hyperlipidemia, unspecified; I25.2 Old myocardial infarction; Z79.4 Long term (current) use of insulin; Z79.899 Other long term (current) drug therapy; Z88.0 Allergy status to penicillin; Z88.1 Allergy status to other antibiotic agents; Z88.7 Allergy status to serum and vaccine
CPT/HCPCS: 51702

== ENCOUNTER → 2023-04-26 | Outpatient (CLI) | payer OTHER ==
[2023-04-26 08:03] LABS: Basophils # (auto) 0.1 10 ^3/uL (0-0.2); Basophils % (auto) 1.1 % (0.0-2.0); Eosinophils # (auto) 0.7 10 ^3/uL (0-0.8); Eosinophils % (auto) 8.1 % (0.0-7.0); Hematocrit 39.6 % (41.0-53.0); Hemoglobin 13.2 g/dL (13.5-17.5); Lymphocytes # (auto) 2.3 10 ^3/uL (0.4-5.4); Mean Corpuscular Hemoglobin 28.6 pg (28.0-32.0); Mean Corpuscular Hgb Conc. 33.3 g/dL (32.0-36.0); Mean Corpuscular Volume 85.7 fL (80.0-100.0); Monocytes # (auto) 1.1 10 ^3/uL (0-1.3); Monocytes % (auto) 12.3 % (0.0-12.0); Neutrophils # (auto) 4.9 10 ^3/uL (1.6-8.6); Neutrophils % (auto) 53.5 % (37.0-80.0); Nucleated Red Blood Cells % 0.1 %; Red Blood Cells 4.62 10^6/uL (4.5-5.90); Red Cell Distribution Width 15.7 % (11.8-14.3); White Blood Cell 9.2 10^3/uL (4.4-10.8)
[2023-04-26 08:17] LABS: Urine Bacteria NONE SEEN /hpf (None Seen); Urine Blood 1+ /uL (Negative); Urine Clarity HAZY (Clear); Urine Color Yellow (Yellow); Urine Protein, UAD 1+ (Negative); Urine Specific Gravity 1.014 (1.001-1.035); Urine Urobilinogen Normal (Negative); Urine WBC 185 /hpf (0 - 3); Urine WBC Clumps PRESENT /hpf (None Seen); Urine pH 6.5 (5.0-8.0)
[2023-04-26 08:23] LABS: Albumin 2.9 g/dL (3.4-5.0); Calcium 9.4 mg/dL (8.5-10.1)
[2023-04-26 08:30] LABS: BUN/Creatinine Ratio 25.2 (10.0-20.0); Bilirubin, Total 0.3 mg/dL (0.2-1.0); Total Protein 6.6 g/dL (6.4-8.2)
[2023-04-26 08:35] LABS: Micro Albumin 78.3 mg/L (0-30.0)
[2023-04-26 11:05] LABS: Prostate Specific Antigen 0.73 ng/mL (0.0-4.0)
== END | disposition home or self-care (01) ==
LOC: LAB 07:01
DX: I13.0 Hypertensive heart and chronic kidney disease with heart failure and stage 1 through stage 4 chronic kidney disease, or unspecified chronic kidney disease (principal); E11.65 Type 2 diabetes mellitus with hyperglycemia; E78.5 Hyperlipidemia, unspecified; D33.9 Benign neoplasm of central nervous system, unspecified
CPT/HCPCS: 36415; 80053; 80061; 81001; 82043; 82570; 82607; 83036; 84153; 85025; 86706

== ENCOUNTER → 2023-07-12 | Outpatient (CLI) | payer OTHER ==
[2023-07-12 07:23] LABS: Basophils # (auto) 0.1 10 ^3/uL (0-0.2); Basophils % (auto) 0.6 % (0.0-2.0); Eosinophils # (auto) 0.6 10 ^3/uL (0-0.8); Eosinophils % (auto) 5.6 % (0.0-7.0); Hematocrit 41.8 % (41.0-53.0); Lymphocytes # (auto) 2.2 10 ^3/uL (0.4-5.4); Lymphocytes % (auto) 22.8 % (10.0-50.0); Mean Corpuscular Hemoglobin 29.5 pg (28.0-32.0); Mean Corpuscular Hgb Conc. 33.4 g/dL (32.0-36.0); Mean Corpuscular Volume 88.2 fL (80.0-100.0); Monocytes # (auto) 1.2 10 ^3/uL (0-1.3); Neutrophils # (auto) 5.7 10 ^3/uL (1.6-8.6); Nucleated Red Blood Cells % 0.1 %; Red Blood Cells 4.74 10^6/uL (4.5-5.90); White Blood Cell 9.8 10^3/uL (4.4-10.8)
[2023-07-12 07:40] LABS: Urine Bacteria MANY /hpf (None Seen); Urine Blood Negative /uL (Negative); Urine Clarity CLOUDY (Clear); Urine Color Straw (Yellow); Urine Protein, UAD TRACE (Negative); Urine Urobilinogen Normal (Negative); Urine WBC 302 /hpf (0 - 3); Urine WBC Clumps PRESENT /hpf (None Seen); Urine pH 5.5 (5.0-8.0)
[2023-07-12 08:07] LABS: Alanine Aminotransferase 58 U/L (7-40); Albumin 3.9 g/dL (3.2-4.8); Alkaline Phosphatase 136 U/L (46-116); Anion Gap 6 (5-15); Aspartate Aminotransferase 22 U/L (13-40); BUN/Creatinine Ratio 17.8 (10.0-20.0); Blood Urea Nitrogen 18 mg/dL (9-23); Calcium 9.7 mg/dL (8.5-10.1); Carbon Dioxide 27 mmol/L (20-30); Chloride 108 mmol/L (98-107); Cholesterol 128 mg/dL (< 200); Glucose 96 mg/dL (74-106); LDL Cholesterol 74 mg/dL (< 100); Potassium 4.6 mmol/L (3.5-5.1); Sodium 141 mmol/L (136-145); Triglycerides 59 mg/dL (< 150)
[2023-07-12 08:08] LABS: Bilirubin, Total 0.5 mg/dL (0.2-1.0); HDL Cholesterol 42 mg/dL (40-59); Total Protein 6.6 g/dL (5.7-8.2)
[2023-07-12 11:12] LABS: Prostate Specific Antigen 1.24 ng/mL (0.0-4.0)
[2023-07-12 11:16] LABS: Free T4 (Free Thyroxine) 0.89 ng/dL (0.89-1.76)
== END | disposition home or self-care (01) ==
LOC: LAB 07:04
DX: E11.65 Type 2 diabetes mellitus with hyperglycemia (principal); E78.5 Hyperlipidemia, unspecified; N18.2 Chronic kidney disease, stage 2 (mild); E05.90 Thyrotoxicosis, unspecified without thyrotoxic crisis or storm; R97.21 Rising PSA following treatment for malignant neoplasm of prostate
CPT/HCPCS: 36415; 80053; 80061; 81001; 82306; 83036; 84153; 84439; 84443; 85025; 87086

== ENCOUNTER → 2023-09-07 | Outpatient (CLI) | payer OTHER | END | disposition home or self-care (01) | LOC: LAB 08:56 | PROVIDERS: ATTEND Student in an Organized Health Care Education/Training Program | DX: E11.9 Type 2 diabetes mellitus without complications (principal) | CPT/HCPCS: 36415; 83036 ==

== ENCOUNTER → 2023-09-30 | Day surgery (SDC) | payer OTHER ==
[2023-09-27 12:43] LABS: Basophils # (auto) 0.1 10 ^3/uL (0-0.2); Basophils % (auto) 0.9 % (0.0-2.0); Eosinophils # (auto) 0.4 10 ^3/uL (0-0.8); Eosinophils % (auto) 4.3 % (0.0-7.0); Hematocrit 39.7 % (41.0-53.0); Hemoglobin 12.8 g/dL (13.5-17.5); Lymphocytes # (auto) 1.3 10 ^3/uL (0.4-5.4); Lymphocytes % (auto) 15.6 % (10.0-50.0); Mean Corpuscular Hemoglobin 29.2 pg (28.0-32.0); Mean Corpuscular Hgb Conc. 32.4 g/dL (32.0-36.0); Mean Corpuscular Volume 90.4 fL (80.0-100.0); Monocytes # (auto) 0.9 10 ^3/uL (0-1.3); Monocytes % (auto) 10.5 % (0.0-12.0); Neutrophils # (auto) 5.7 10 ^3/uL (1.6-8.6); Neutrophils % (auto) 68.7 % (37.0-80.0); Nucleated Red Blood Cells % 0.1 %; Red Blood Cells 4.39 10^6/uL (4.5-5.90); Red Cell Distribution Width 14.4 % (11.8-14.3); White Blood Cell 8.2 10^3/uL (4.4-10.8)
[2023-09-27 13:01] LABS: INR 0.93 (0.9-1.15); Prothrombin Time 9.8 sec (9.3-11.8)
[2023-09-27 13:13] LABS: Alanine Aminotransferase 18 U/L (7-40); Albumin 3.5 g/dL (3.2-4.8); Alkaline Phosphatase 130 U/L (46-116); Anion Gap 5 (5-15); Aspartate Aminotransferase 13 U/L (13-40); Bilirubin, Total 0.3 mg/dL (0.2-1.0); Blood Urea Nitrogen 22 mg/dL (9-23); Calcium 8.8 mg/dL (8.7-10.4); Carbon Dioxide 25 mmol/L (20-30); Chloride 108 mmol/L (98-107); Glucose 246 mg/dL (74-106); Potassium 4.6 mmol/L (3.5-5.1); Sodium 138 mmol/L (136-145)
[2023-09-27 14:44] LABS: Urine Bacteria FEW /hpf (None Seen); Urine Blood Negative /uL (Negative); Urine Clarity HAZY (Clear); Urine Color Yellow (Yellow); Urine Hyaline Cast FEW /lpf (0 - 2); Urine Protein, UAD TRACE (Negative); Urine Specific Gravity 1.012 (1.001-1.035); Urine Urobilinogen Normal (Negative); Urine WBC 61 /hpf (0 - 3); Urine WBC Clumps PRESENT /hpf (None Seen)
[~2023-09-30] VITALS: Ht 190.5 cm; Wt 122.5 kg
[~2023-09-30] MED LIST changes: -BACDST PO; -CEFU500T43 PO; -FLUC200T50 PO; -NITR-87 PO
== END | disposition home or self-care (01) ==
LOC: SUR 06:15
PROVIDERS: ATTEND Urology
DX: N40.1 Benign prostatic hyperplasia with lower urinary tract symptoms (principal); Z53.8 Procedure and treatment not carried out for other reasons; I11.0 Hypertensive heart disease with heart failure; I50.9 Heart failure, unspecified; J44.9 Chronic obstructive pulmonary disease, unspecified; E11.9 Type 2 diabetes mellitus without complications; F17.210 Nicotine dependence, cigarettes, uncomplicated; Z87.01 Personal history of pneumonia (recurrent); Z82.49 Family history of ischemic heart disease and other diseases of the circulatory system; Z82.5 Family history of asthma and other chronic lower respiratory diseases; Z79.4 Long term (current) use of insulin; Z88.7 Allergy status to serum and vaccine; Z88.0 Allergy status to penicillin; Z88.8 Allergy status to other drugs, medicaments and biological substances; Z88.2 Allergy status to sulfonamides; Z98.890 Other specified postprocedural states; Z79.899 Other long term (current) drug therapy
CPT/HCPCS: 36415; 80053; 81001; 85025; 85610; 85730; 87086; 87088; 87186

== ENCOUNTER 2023-10-19 06:33 | Day surgery (SDC) | payer OTHER ==
[2023-10-13 08:35] LABS: Basophils # (auto) 0.1 10 ^3/uL (0-0.2); Basophils % (auto) 0.8 % (0.0-2.0); Eosinophils # (auto) 0.5 10 ^3/uL (0-0.8); Eosinophils % (auto) 5.5 % (0.0-7.0); Hematocrit 39.9 % (41.0-53.0); Hemoglobin 13.2 g/dL (13.5-17.5); Lymphocytes # (auto) 1.7 10 ^3/uL (0.4-5.4); Lymphocytes % (auto) 19.9 % (10.0-50.0); Mean Corpuscular Hemoglobin 29.6 pg (28.0-32.0); Mean Corpuscular Hgb Conc. 33.1 g/dL (32.0-36.0); Mean Corpuscular Volume 89.5 fL (80.0-100.0); Monocytes # (auto) 0.9 10 ^3/uL (0-1.3); Monocytes % (auto) 10.9 % (0.0-12.0); Neutrophils # (auto) 5.3 10 ^3/uL (1.6-8.6); Neutrophils % (auto) 62.9 % (37.0-80.0); Red Blood Cells 4.46 10^6/uL (4.5-5.90); Red Cell Distribution Width 14.7 % (11.8-14.3); White Blood Cell 8.4 10^3/uL (4.4-10.8)
[2023-10-13 08:55] LABS: Alanine Aminotransferase 26 U/L (7-40); Albumin 3.6 g/dL (3.2-4.8); Alkaline Phosphatase 127 U/L (46-116); Anion Gap 5 (5-15); Aspartate Aminotransferase 18 U/L (13-40); BUN/Creatinine Ratio 15.3 (10.0-20.0); Bilirubin, Total 0.4 mg/dL (0.2-1.0); Blood Urea Nitrogen 15 mg/dL (9-23); Calcium 8.8 mg/dL (8.5-10.1); Carbon Dioxide 26 mmol/L (20-30); Chloride 110 mmol/L (98-107); Glucose 179 mg/dL (74-106); INR 0.95 (0.9-1.15); Partial Thromboplastin Time 30.3 SEC (24.5-34.5); Potassium 4.6 mmol/L (3.5-5.1); Sodium 141 mmol/L (136-145); Total Protein 6.2 g/dL (5.7-8.2)
[2023-10-13 08:58] LABS: Urine Bacteria NONE SEEN /hpf (None Seen); Urine Blood Negative /uL (Negative); Urine Clarity Clear (Clear); Urine Protein, UAD TRACE (Negative); Urine Specific Gravity 1.008 (1.001-1.035); Urine Urobilinogen Normal (Negative); Urine WBC 5 /hpf (0 - 3); Urine pH 5.5 (5.0-8.0)
[2023-10-13 08:59] LABS: Urine Color Straw (Yellow)
[~2023-10-19] VITALS: Ht 190.5 cm; Wt 122.5 kg
[2023-10-19] MEDS ORDERED: cefTRIAXone 1GM/50ML D5W 50 ML IV ONE (08:41)
[2023-10-19] MEDS ORDERED: fentaNYL CITRATE 100 MCG/2 ML VL ONE (09:19)
[2023-10-19] MEDS ORDERED: MEPERIDINE HCL (50 MG/ML) 1 ML VIAL ONE (09:20)
[2023-10-19] MEDS ORDERED: MIDAZOLAM HCL 2MG/2ML 2ml VIAL (1mg/ml) ONE (09:20)
[2023-10-19] MEDS ORDERED: ONDANSETRON HCL 4 MG/2 ML VIAL IV PRN (09:45)
[2023-10-19] MEDS ORDERED: hydrALAZINE HCL 20 MG/ML VL IV PRN (09:45)
[2023-10-19] MEDS ORDERED: MIDAZOLAM HCL 2MG/2ML 2ml VIAL (1mg/ml) IV PRN (09:45)
[2023-10-19] MEDS ORDERED: ePHEDrine SULFATE 50 MG/ML AMP IV PRN (09:45)
[2023-10-19] MEDS ORDERED: LABETALOL HCL 5 MG/ML 4ML SYRINGE IV PRN (09:45)
[2023-10-19] MEDS ORDERED: ACCU-CHEK COMFORT CURVE STRIP VI ONE (09:45)
[2023-10-19] MEDS ORDERED: HYDROmorphone HCL 2 MG/ML VL/or syr IV PRN (09:45)
[2023-10-19] MEDS ORDERED: MORPHINE SULFATE 4 MG/ML SYR/VIAL IV PRN (09:45)
[2023-10-19] MEDS ORDERED: PROPOFOL 10 MG/ML 20 ML IV ONE (09:48)
[2023-10-19] MEDS ORDERED: ONDANSETRON HCL 4 MG/2 ML VIAL ONE (09:48)
[2023-10-19] MEDS ORDERED: DexAMETHasone SOD PHOS 10MG/1ML VIAL INJ ONE (09:48)
[2023-10-19 10:15] VITALS: PULSE 63; RESP 14; TEMP 98; O2SAT 96
[2023-10-19 11:10] VITALS: BP 153/67; PULSE 70; RESP 15; O2SAT 95
[2023-12-16] MEDS ORDERED: INS7030I (17:30)
[2023-12-16] MEDS ORDERED: LISI-275 PO (17:31)
[2023-12-20] MEDS ORDERED: CEFP200T15 PO (08:00)
[2023-12-20] MEDS ORDERED: LINE1TAB6 PO (10:30)
== END 2023-10-19 14:00 | disposition home or self-care (01) ==
LOC: SUR 06:33
PROVIDERS: ATTEND Urology
DX: N40.1 Benign prostatic hyperplasia with lower urinary tract symptoms (principal); N13.8 Other obstructive and reflux uropathy; R33.8 Other retention of urine; I11.0 Hypertensive heart disease with heart failure; I50.9 Heart failure, unspecified; J44.9 Chronic obstructive pulmonary disease, unspecified; E11.9 Type 2 diabetes mellitus without complications; Z79.4 Long term (current) use of insulin; Z79.899 Other long term (current) drug therapy; Z86.16 Personal history of COVID-19; Z87.01 Personal history of pneumonia (recurrent); Z86.2 Personal history of diseases of the blood and blood-forming organs and certain disorders involving the immune mechanism; Z89.9 Acquired absence of limb, unspecified; Z98.890 Other specified postprocedural states; Z87.891 Personal history of nicotine dependence; Z88.0 Allergy status to penicillin; Z88.2 Allergy status to sulfonamides; Z88.1 Allergy status to other antibiotic agents
CPT/HCPCS: 36415; 52441; 52442; 80053; 81001; 82962; 85025; 85610; 85730; 87086; C1769; J0696; J1100; J2175; J2250; J2405; J2704; J3010; J7030; L8699

== ENCOUNTER 2023-11-10 12:44 | Emergency (ER) | payer OTHER ==
[~2023-11-10] VITALS: Ht 190.5 cm; Wt 122.7 kg
[2023-11-10 15:01] LABS: Basophils # (auto) 0.1 10 ^3/uL (0-0.2); Basophils % (auto) 1.3 % (0.0-2.0); Eosinophils # (auto) 0.4 10 ^3/uL (0-0.8); Eosinophils % (auto) 6.1 % (0.0-7.0); Hemoglobin 12.8 g/dL (13.5-17.5); Lymphocytes # (auto) 1.5 10 ^3/uL (0.4-5.4); Lymphocytes % (auto) 22.8 % (10.0-50.0); Mean Corpuscular Hemoglobin 28.9 pg (28.0-32.0); Mean Corpuscular Hgb Conc. 32.7 g/dL (32.0-36.0); Mean Corpuscular Volume 88.5 fL (80.0-100.0); Monocytes # (auto) 1.1 10 ^3/uL (0-1.3); Monocytes % (auto) 16.9 % (0.0-12.0); Neutrophils # (auto) 3.4 10 ^3/uL (1.6-8.6); Neutrophils % (auto) 52.9 % (37.0-80.0); Red Blood Cells 4.41 10^6/uL (4.5-5.90); Red Cell Distribution Width 14.4 % (11.8-14.3); White Blood Cell 6.5 10^3/uL (4.4-10.8)
[2023-11-10 15:09] LABS: Chloride 109 mmol/L (98-107); Sodium 138 mmol/L (136-145)
[2023-11-10 15:10] LABS: Anion Gap 3 (5-15); Carbon Dioxide 26 mmol/L (20-30)
[2023-11-10 15:11] LABS: Calcium 8.5 mg/dL (8.5-10.1)
[2023-11-10 15:15] LABS: BUN/Creatinine Ratio 18.1 (10.0-20.0); Blood Urea Nitrogen 19 mg/dL (9-23); Glucose 274 mg/dL (74-106)
[2023-11-10] MEDS ORDERED: CLIN150C PO (15:25)
[2023-11-10 15:35] LABS: Erythrocyte Sedimentation Rate 17 mm/hr (0-20)
[2023-11-10] MEDS: CLINDAMYCIN 600MG IV 50 ML IV ONE (16:09)
[2023-11-10 17:12] VITALS: BP 146/44; PULSE 74; RESP 18; TEMP 97.8; O2SAT 96
== END 2023-11-10 17:12 | disposition home or self-care (01) ==
LOC: ER 12:44
DX: L03.115 Cellulitis of right lower limb (principal); I11.0 Hypertensive heart disease with heart failure; I50.9 Heart failure, unspecified; E11.9 Type 2 diabetes mellitus without complications; J44.9 Chronic obstructive pulmonary disease, unspecified; K21.9 Gastro-esophageal reflux disease without esophagitis; E78.5 Hyperlipidemia, unspecified; F15.90 Other stimulant use, unspecified, uncomplicated; Z98.890 Other specified postprocedural states; Z88.8 Allergy status to other drugs, medicaments and biological substances; Z79.899 Other long term (current) drug therapy
CPT/HCPCS: 36415; 73700; 80048; 85025; 85652; 96365; 99285; J3490

== ENCOUNTER → 2024-05-02 | Outpatient (CLI) | payer OTHER ==
[~2024-05-02] MED LIST changes: +CEFP200T15 PO; +INS7030I; -INSU70IN3 SC; +LINE1TAB6 PO; +LISI-275 PO; -MAGN400S25 PO; -NITR-52 PO
[2024-05-02 12:55] LABS: Basophils # (auto) 0.2 10 ^3/uL (0-0.2); Basophils % (auto) 1.5 % (0.0-2.0); Eosinophils # (auto) 0.4 10 ^3/uL (0-0.8); Eosinophils % (auto) 4.2 % (0.0-7.0); Hematocrit 41.5 % (41.0-53.0); Hemoglobin 13.8 g/dL (13.5-17.5); Lymphocytes # (auto) 2.1 10 ^3/uL (0.4-5.4); Lymphocytes % (auto) 19.3 % (10.0-50.0); Mean Corpuscular Hemoglobin 29.9 pg (28.0-32.0); Mean Corpuscular Hgb Conc. 33.3 g/dL (32.0-36.0); Mean Corpuscular Volume 89.8 fL (80.0-100.0); Monocytes # (auto) 1.1 10 ^3/uL (0-1.3); Monocytes % (auto) 10.7 % (0.0-12.0); Neutrophils # (auto) 6.8 10 ^3/uL (1.6-8.6); Neutrophils % (auto) 64.3 % (37.0-80.0); Platelet Count (auto) 248 10^3/uL (140-450); Red Blood Cells 4.62 10^6/uL (4.5-5.90); Red Cell Distribution Width 14.2 % (11.8-14.3); White Blood Cell 10.6 10^3/uL (4.4-10.8)
[2024-05-02 13:08] LABS: Creatinine, Urine 46.31 mg/dL (30.0-125.0)
[2024-05-02 13:28] LABS: Alanine Aminotransferase 75 U/L (7-40); Albumin 3.7 g/dL (3.2-4.8); Alkaline Phosphatase 180 U/L (46-116); Anion Gap 4 (5-15); Aspartate Aminotransferase 18 U/L (13-40); BUN/Creatinine Ratio 24.8 (10.0-20.0); Bilirubin, Total 0.4 mg/dL (0.2-1.0); Blood Urea Nitrogen 29 mg/dL (9-23); Calcium 9.2 mg/dL (8.7-10.4); Carbon Dioxide 24 mmol/L (20-30); Chloride 115 mmol/L (98-107); Cholesterol 111 mg/dL (< 200); Glucose 143 mg/dL (74-106); HDL Cholesterol 44 mg/dL (40-59); LDL Cholesterol 57 mg/dL (< 100); Potassium 4.3 mmol/L (3.5-5.1); Sodium 143 mmol/L (136-145); Triglycerides 38 mg/dL (< 150)
[2024-05-02 13:29] LABS: Total Protein 6.2 g/dL (5.7-8.2)
== END | disposition home or self-care (01) ==
LOC: LAB 12:31
PROVIDERS: ATTEND Student in an Organized Health Care Education/Training Program
DX: I10 Essential (primary) hypertension (principal); E11.9 Type 2 diabetes mellitus without complications
CPT/HCPCS: 36415; 80053; 80061; 82043; 82570; 83036; 84443; 85025

== ENCOUNTER 2024-07-15 01:25 | Inpatient (IN) | payer MEDICARE, OTHER ==
[2024-07-15] VITALS (9 sets, daily range): BP systolic 153–169; BP diastolic 62–73; PULSE 65–94; RESP 13–18; TEMP 97.8–98.2; O2SAT 94–97
[~2024-07-15] VITALS: Ht 190.5 cm; Wt 129.9 kg
[~2024-07-15 01:25] MED LIST changes: +ATOR20TA PO; +BACL10TA PO; +DICL50TA4 PO; +GABA-1250 PO; -INS7030I; +INS7030I SC; +LISI10TA34 PO
--- NOTE | 2024-07-15 02:03 | ED.PDOC ---
SOB-HPI HPI Comments 64-year-old male who came to ER due to shortness of breath. Patient does have history of hypertension, diabetes, asthma, COPD, ND, status post cardiac stents. History of left BKA and right foot amputee. Noted to be short of breath for the past few days progressively worsening and saturating 91% at room air. Noted worsening abdominal distention with RLE edema. Chief Complaint: Shortness of Breath Time Seen by MD: 02:02 Primary Care Provider: Vasquez Reviewed notes: Nurses Notes Information Source: Patient Mode of Arrival: EMS Severity: Moderate Timing: Days Duration: Since onset Context: At Rest, With Light Exertion PE Risk Factors: None History of: Asthma, COPD Prehospital treatment: Oxygen Modifying Factors: Nothing Associated Signs and Symptoms: Cough Quality: Aching, Tightness Radiation: No Radiation Past Medical History PAST MEDICAL HISTORY: Asthma, COPD, DM, GERD, High Lipids, HTN, ND, UTI'S Surgical History: BKA (left), PTCA Surgical History (Other): Right toe amputee Family History Family History: Reviewed,noncontributory to illness Social History Smoker: Non-Smoker Alcohol: Denies ETOH Use Drugs: Marijuana Lives In: Home Constitutional: denies: chills, diaphoresis, fatigue, fever, malaise, sweats, weakness, others EENTM: denies: blurred vision, double vision, ear bleeding, ear discharge, ear drainage, ear pain, ear ringing, eye pain, eye redness, hearing loss, mouth pain, mouth swelling, nasal discharge, nose bleeding, nose congestion, nose pain, photophobia, tearing, throat pain, throat swelling, voice changes, others Respiratory: reports: SOB at rest, shortness of breath, SOB with excertion; denies: cough, hemoptysis, orthopnea, stridor, wheezing, others Cardiovascular: reports: edema; denies: chest pain, dizzy spells, diaphoresis, Dyspnea on exertion, irregular heart beat, left arm pain, lightheadedness, palpitations, PND, syncope, others Gastrointestinal: reports: abdomen distended, abdominal pain; denies: blood streaked bowels, constipated, diarrhea, dysphagia, difficulty swallowing, hematemesis, melena, nausea, poor appetite, poor fluid intake, rectal bleeding, rectal pain, vomiting, others Genitourinary: denies: burning, dysuria, flank pain, frequency, hematuria, incontinence, penile discharge, penile sore, pain, testicle pain, testicle swelling, urgency, others Neurological: denies: dizziness, fainting, headache, left sided numbness, left sided weakness, numbness, paresthesia, pre-existing deficit, right sided numbness, right sided weakness, seizure, speech problems, tingling, tremors, weakness, others Musculoskeletal: denies: back pain, gout, joint pain, joint swelling, muscle pain, muscle stiffness, neck pain, others Integumetry: denies: bruises, change in color, change in hair/nails, dryness, laceration, lesions, lumps, rash, wounds, others Allergic/Immunocompromised: denies: Difficulty Healing, Frequent Infections, Hives, Itching, others Hematologic/Lymphatic: denies: anemia, blood clots, easy bleeding, easy bruising, swollen glands, others Endocrine: denies: excessive hunger, excessive sweating, excessive thirst, excessive urination, flushing, intolerance to cold, intolerance to heat, unexplained weight gain, unexplained weight loss, others Psychiatric: denies: anxiety, bipolar disorder, depression, hopeless, panic disorder, schizophrenia, sleepless, suicidal, others Physical Exam Exam Comments Pt. appears to be in poor overall health. General Appearance: Moderate Distress (due to SOB), Normal HEENT: Normal ENT Inspection, Pharynx Normal, TMs Normal Neck: Full Range of Motion, Non-Tender, Normal, Normal Inspection Respiratory: Chest Non-Tender, Lungs Clear, No Accessory Muscle Use, No Respiratory Distress, Normal Breath Sounds Cardiovascular: No Edema, No JVD, No Murmur, No Gallop, Normal Peripheral Pulses, Regular Rate/Rhythm Breast Exam: Deferred Gastrointestinal: No Organomegaly, Non Tender, No Pulsatile Mass, Normal Bowel Sounds, Soft Genitalia: Deferred Pelvic: Deferred Rectal: Deferred Extremities: No calf tenderness, Normal capillary refill, Normal range of motion, Other (L BTK amputation) Musculoskeletal : Apperance: Normal Neurologic: Alert, Normal Affect, Normal Mood, No Sensory Deficits Cerebellar Function: Normal Reflexes: Normal Skin: Dry, Normal Color, Warm Lymphatic: No Adenopathy Was a procedure done? Was a procedure done?: No Differential Dx Differential Diagnosis: Asthma, CHF, COPD, Hyperventilation, Myocardial infarction, Pneumonia, Pulmonary Embolism, Respiratory Distress, URI X-Ray, Labs, Meds, VS Vital Signs Date Time Temp Pulse Resp B/P (MAP) Pulse Ox O2 Delivery O2 Flow Rate FiO2 07/15/24 03:00 72 15 134/55 (81) 96 07/15/24 02:12 71 07/15/24 02:06 18 97 Room Air* 0 21 07/15/24 01:45 82 18 96 Room Air* 0 21 07/15/24 01:45 98.2 79 20 139/50 (79) 96 98.2 07/15/24 01:37 98.8 80 18 168/76 (106) 96 Lab Test 07/15/24 04:58 07/15/24 02:47 07/15/24 01:52 Range/Units Troponin I High Sensitivity Pending 29 29 </=54 ng/L White Blood Count 11.5 H 4.4-10.8 10^3/uL Red Blood Count 3.84 L 4.5-5.90 10^6/uL Hemoglobin 11.8 L 13.5-17.5 g/dL Hematocrit 36.1 L 41.0-53.0 % Mean Corpuscular Volume 94.0 80.0-100.0 fL Mean Corpuscular Hemoglobin 30.6 28.0-32.0 pg Mean Corpuscular Hemoglobin Concent 32.6 32.0-36.0 g/dL Red Cell Distribution Width 15.6 H 11.8-14.3 % Platelet Count 236 140-450 10^3/uL Mean Platelet Volume 8.7 6.9-10.8 fL Neutrophils (%) (Auto) 70.1 37.0-80.0 % Lymphocytes (%) (Auto) 11.3 10.0-50.0 % Monocytes (%) (Auto) 12.5 H 0.0-12.0 % Eosinophils (%) (Auto) 5.5 0.0-7.0 % Basophils (%) (Auto) 0.6 0.0-2.0 % Neutrophils # (Auto) 8.1 1.6-8.6 10 ^3/uL Lymphocytes # (Auto) 1.3 0.4-5.4 10 ^3/uL Monocytes # (Auto) 1.4 H 0-1.3 10 ^3/uL Eosinophils # (Auto) 0.6 0-0.8 10 ^3/uL Basophils # (Auto) 0.1 0-0.2 10 ^3/uL Nucleated Red Blood Cells 0.0 % Prothrombin Time 10.6 9.3-11.8 sec Prothrombin Time INR 1.00 0.9-1.15 Activated Partial Thromboplast Time 29.6 24.5-34.5 SEC D-Dimer, Quantitative 0.78 H 0.0-0.49 mg/L FEU Sodium Level 145 136-145 mmol/L Potassium Level 5.3 H 3.5-5.1 mmol/L Chloride Level 121 H 98-107 mmol/L Carbon Dioxide Level 20 20-31 mmol/L Anion Gap 4 L 5-15 Blood Urea Nitrogen 38 H 9-23 mg/dL Creatinine 1.27 0.700-1.30 mg/dL Glomerular Filtration Rate Calc 63 >90 mL/min BUN/Creatinine Ratio 29.9 H 10.0-20.0 Serum Glucose 234 H 74-106 mg/dL Lactic Acid Level 1.5 0.4-2.0 mmol/L Calcium Level 9.1 8.7-10.4 mg/dL Total Bilirubin 0.4 0.2-1.0 mg/dL Aspartate Amino Transferase (AST) 40 13-40 U/L Alanine Aminotransferase (ALT) 124 H 7-40 U/L Alkaline Phosphatase 251 H 46-116 U/L B-Type Natriuretic Peptide 137.46 0-100 pg/mL Total Protein 6.1 5.7-8.2 g/dL Albumin 3.8 3.2-4.8 g/dL Lipase 42 12-53 U/L Current Medications Medications (Trade) Dose Ordered Sig/[place] Route Start Time Stop Time Status Last Admin Albuterol (Ventolin Medneb) 5 mg ONCE ONCE NEB 07/15/24 01:45 07/15/24 01:46 DC 07/15/24 02:09 Ipratropium [place] (Atrovent Medneb) 0.5 mg ONCE ONCE NEB 07/15/24 01:45 07/15/24 01:46 DC 07/15/24 02:09 Dexamethasone Sodium Phosphate 10 mg/Dextrose 51 ml @ 204 mls/hr ONCE ONCE IV 07/15/24 01:45 07/15/24 01:59 DC 07/15/24 04:38 X-Ray, Labs, Meds, VS Comment Most studies were pending at time of this note. Pt care is being transferred to Dr. Garza for continued evaluation. Time of 1ST Reevaluation: 02:36 Reevaluation 1ST: Improved Consultation: PCP Patient Education/Counseling: Diagnosis, Treatment Family Education/Counseling: Diagnosis, Treatment, No Family Present Departure 1 Departure Time of Disposition: 05:11 (Patient with worsening shortness of breath. We will admit patient for further workup.) Impression: Primary Impression: SOB (shortness of breath) Disposition: ADMITTED INPATIENT Admit to: Med Surg Condition: Serious Discharged With: Self, Spouse Critical Care Note Critical Care Time?: No Stability Stability form required: No Heart Score Heart Score: Heart Score Response (Comments) Value History Moderate Suspicious 1 EKG Repolarization Disturb 1 Age >65 2 Risk Factors >3 or Hx ASHD 2 Troponin N/A 0 Total 6 I personally scribed for DEVEN WALSH PAC ([email or web address]) on 07/15/24 at 02:02. Electronically submitted by Sharif Medina ([email or web address]). DEVEN WALSH PAC Jul 15, 2024 02:02 FILIPPO GARZA MD Jul 15, 2024 05:11
[2024-07-15 02:07] LABS: Basophils # (auto) 0.1 10 ^3/uL (0-0.2); Basophils % (auto) 0.6 % (0.0-2.0); Eosinophils # (auto) 0.6 10 ^3/uL (0-0.8); Eosinophils % (auto) 5.5 % (0.0-7.0); Hematocrit 36.1 % (41.0-53.0); Hemoglobin 11.8 g/dL (13.5-17.5); Lymphocytes # (auto) 1.3 10 ^3/uL (0.4-5.4); Lymphocytes % (auto) 11.3 % (10.0-50.0); Mean Corpuscular Hemoglobin 30.6 pg (28.0-32.0); Mean Corpuscular Hgb Conc. 32.6 g/dL (32.0-36.0); Monocytes # (auto) 1.4 10 ^3/uL (0-1.3); Monocytes % (auto) 12.5 % (0.0-12.0); Neutrophils # (auto) 8.1 10 ^3/uL (1.6-8.6); Neutrophils % (auto) 70.1 % (37.0-80.0); Platelet Count (auto) 236 10^3/uL (140-450); Red Blood Cells 3.84 10^6/uL (4.5-5.90); Red Cell Distribution Width 15.6 % (11.8-14.3); White Blood Cell 11.5 10^3/uL (4.4-10.8)
[2024-07-15] MEDS: IPRATROPIUM BROM 0.5 MG/2.5ML INH SOL NEB ONE ×2 (02:09→10:55)
[2024-07-15] MEDS: ALBUTEROL SULF 2.5 MG/0.5ML(0.5%) NEB SOLN NEB ONE ×2 (02:09→10:55)
[2024-07-15 02:23] LABS: Partial Thromboplastin Time 29.6 SEC (24.5-34.5); Prothrombin Time 10.6 sec (9.3-11.8)
[2024-07-15 02:24] LABS: Alanine Aminotransferase 124 U/L (7-40); Albumin 3.8 g/dL (3.2-4.8); Alkaline Phosphatase 251 U/L (46-116); Anion Gap 4 (5-15); Aspartate Aminotransferase 40 U/L (13-40); BUN/Creatinine Ratio 29.9 (10.0-20.0); Blood Urea Nitrogen 38 mg/dL (9-23); Calcium 9.1 mg/dL (8.7-10.4); Carbon Dioxide 20 mmol/L (20-31); Chloride 121 mmol/L (98-107); Glucose 234 mg/dL (74-106); Lipase 42 U/L (12-53); Potassium 5.3 mmol/L (3.5-5.1); Sodium 145 mmol/L (136-145)
[2024-07-15 02:25] LABS: Bilirubin, Total 0.4 mg/dL (0.2-1.0); Total Protein 6.1 g/dL (5.7-8.2)
[2024-07-15] MEDS: DexAMETHasone SOD PHOS 4 MG/1ML SDV INJ ONE ×2 (03:59→04:38)
--- NOTE | 2024-07-15 04:16 | DVH ---
Examination: ABPL CLINICAL INDICATION: diffuse belly pain and distention COMPARISON: None. CONTRAST USED: None. TECHNIQUE: A plain CT study of the abdomen and pelvis is performed. The examination was performed w ith 5 mm thin slices. Multiplanar reconstructions were obtained. CT scan was done according to ALAR A (As Low As Reasonably Achievable). FINDINGS: CT ABDOMEN Lung bases: Mild bilateral pleural effusions. Significant emphysematous changes are seen in right lower lobe medially. Unenhanced Liver: The liver is normal in size. There is no intrahepatic biliary radicle dilatation. Gallbladder: The gallbladder is normal and reveals no intrinsic abnormality. The common bile duct i s not dilated. Unenhanced Pancreas: The pancreas is normal in size and shape. No focal lesion is seen within. The peripancreatic fat-planes are normal. Spleen: The spleen is normal in size and does not show any focal abnormality. Retroperitoneum: Both adrenal glands are normal in size and morphology in this unenhanced CT scan. There is no significant retroperitoneal lymphadenopathy. The kidneys are normal in size, with no hydronephrosis or renal calculi. Vessels: Aorta, IVC and the mesenteric vessels cannot be commented in this unenhanced CT scan. Stomach and bowel: The bowel loops are unremarkable. There is no ascites. Skeletal system: Degenerative changes are seen involving the spine, in the form of marginal osteophy david. Levoscoliosis. Degenerative osteoarthritis involving both hip joints. CT PELVIS Appendix: The appendix is unremarkable in appearance. Small umbilical hernia is seen, containing fat. Colon: The ascending, transverse, descending, sigmoid colon and rectum are unremarkable. Bladder: The urinary bladder is unremarkable. The prostate is normal in size with foci of calcifications. No abnormal fluid collection is seen. No pelvic lymphadenopathy is identified. Moderate abdominal wall edema is seen. IMPRESSION: 1. Mild bilateral pleural effusions. 2. Significant emphysematous changes are seen in right lower lobe medially. 3. No abdominal mass or adenopathy. 4. No ascites. 5. No free air or inflammatory changes. 6. Additional chronic and/or ancillary findings as detailed above. Suggest clinical correlation and follow-up as clinically deemed necessary. Electronically Signed 07/15/2024 04:08 Rosi Hall
[2024-07-15] MEDS: DexAMETHasone INJECTION 10 MG in D5W 5% 50 ML IV ONE (04:38)
--- NOTE | 2024-07-15 05:05 | DVH ---
Examination: CXRP CLINICAL INDICATION: SOB Comparison: None. Technique: Frontal radiograph of the chest was obtained. Findings: Lungs are clear and well expanded, with no pulmonary infiltrate or pleural effusion. There is no pneumothorax. The cardiomediastinal silhouette is within normal limits. No acute osseous abnormality is seen. Impression: No acute cardiopulmonary disease is seen. Electronically Signed 07/15/2024 04:57 Rosi Hall
[2024-07-15 07:33] LABS: Urine Bacteria FEW /hpf (None Seen); Urine Blood Negative /uL (Negative); Urine Clarity Turbid (Clear); Urine Color Colorless (Yellow); Urine Protein, UAD 2+ (Negative); Urine Specific Gravity 1.016 (1.001-1.035); Urine Urobilinogen Normal (Negative); Urine WBC 36 /hpf (0 - 3); Urine pH 5.5 (5.0-9.0)
[2024-07-15] MEDS ORDERED: ALBUTEROL SULF 2.5 MG/0.5ML(0.5%) NEB SOLN NEB PRN (10:15)
[2024-07-15] MEDS ORDERED: DEXTROSE (50%) 50ML SYRG IV PRN (10:15)
[2024-07-15] MEDS ORDERED: NITROGLYCERIN 0.4 MG SL TAB SL PRN (10:15)
[2024-07-15] MEDS ORDERED: IPRATROPIUM BROM 0.5 MG/2.5ML INH SOL NEB PRN (10:15)
--- NOTE | 2024-07-15 10:58 | DVHHP2 ---
History of Present Illness Reason for Visit: sob and abd swelling and leg sweling History of Present Illness 64 m pmh gerds, htn hld, dm, asthma, mi copd, (pt has hx of chf but declines history), stent in bladder placed by Dr. Lofton, s/p cardiac cath with stents, sx history left bka, right toe amputation cc here for sob and abd swelling and right lower ext swelling with some drainage from the right leg, pt states the leg swelling and right facial swelling along with abd tightness and swelling and scrotal swelling did speak with pt about his of chf pt states no hx but when you look back at his chart there is hx of chf, pt currently not on lasix, but did review chart pt had an echo completed on 12/2023 ef 55%, pt states have not seen a competitive shopper since discharge, he denies any c/p but does c/o sob that has gotten worse over the last few days, no fever no cough, they are also concerned about some swelling in the perineum but pt is still able to void right swelling and abd swelling was a concern for the patient, pt had some open wound to right lower ext with erythema, and weeping wounds, and right groin redness and fungal rash. pt states is taking medication as prescribed, but information from pt and very limited and poor historian about his care, he stays with his who cares for him she states he uses prothesis and w/c to get around at home, when evaluating pt labs and imaging from the ed, pt had provided dexamethasone, albuterol/atorvent wbc 11.5, postassium 5.3, glucose 234, cxr unremarkable, lactic 1.5 trop negative x3, ct scan abd pelvis shoes bilateral effusion and emphysema, pt with mild transaminits that increased from baseline. with these findings will admit pt to tele floor and ask for cards consult Past Medical History see hpi above Past Surgical History see hpi above Family History reviewed non contributory Past Social History pt does smoke marijuana but declines etoh or smoking Review of Systems Constitutional: No: Fever, Chills, Sweats, Weakness, Malaise, Other Eyes: No: Pain, Vision change, Conjunctivae inflammation, Eyelid inflammation, Other, Redness ENT: No: Ear pain, Ear discharge, Nose pain, Nose discharge, Nose congestion, Mouth pain, Mouth swelling, Throat pain, Throat swelling, Other Respiratory: Shortness of breath, SOB with excertion; No: Cough, Dry, Wheezing, Hemoptysis, Pleuritic Pain, Sputum, Wheezing, Other Cardiovascular: Edema; No: Chest Pain, Palpitations, Orthopnea, Paroxysmal Noc. Dyspnea, Lt Headedness, Other Gastrointestinal: Abdominal Pain; No: Nausea, Vomiting, Diarrhea, Constipation, Melena, Hematochezia, Other Genitourinary: No Dysuria, No Frequency, No Incontinence, No Hematuria, No Retention; Other (scrotum swelling ) Musculoskeletal: No: other, neck pain, shoulder pain, arm pain, back pain, hand pain, leg pain, foot pain Skin: No: Rash, Lesions, Jaundice, Bruising, Other Neurological: No: Weakness, Numbness, Incoordination, Change in speech, Confusion, Seizures, Other Allergies: Coded Allergies: Ciprofloxacin (Verified Allergy, Unknown, 04/13/19) Influenza Vaccines (Verified Allergy, Unknown, 04/13/19) Penicillins (Verified Allergy, Unknown, 04/13/19) Sulfa Antibiotics (Unverified Allergy, Unknown, 09/27/23) Exam Vital Signs Vital Signs Date Time Temp Pulse Resp B/P (MAP) Pulse Ox O2 Delivery O2 Flow Rate FiO2 07/15/24 09:01 62 11 128/66 (86) 93 07/15/24 07:41 Room Air* 0 21 07/15/24 01:45 98.2 98.2 General Appearance: Alert, Oriented X3, Cooperative, No acute distress HEENT: Other (right facial edema ) Respiratory: Normal air movement, Other (dminished in lower bases ) Cardiovascular: Regular rate, Normal S1, Normal S2, No murmurs Abdominal: Normal bowel sounds, Soft, No tenderness, No hepatospenomegaly, No masses, Other (obese abd and lower abd edema seen/some scrotal swelling seen no my exam but able to urinate ) Extremities: No cyanosis, Other (rle with open blisters some drainage noted clear in color, some erythema to rle, compartment soft swelling to foot also nvi +silt missing toe) Neuro: Other (neuro non focal ) Psych/Mental Status: Mental status NL, Mood NL Labs/Xrays cxr unremarkable ct scan abd pelvis no acute findings, shows bilateral effusion and emphysema i reviewed labs imaging and ed records on chart and old history prior to admission Labs Test 07/15/24 06:55 07/15/24 04:58 07/15/24 01:52 Range/Units Urine Color Colorless Yellow Urine Clarity Turbid H Clear Urine pH 5.5 5.0-9.0 Urine Specific [place] 1.016 1.001-1.035 Urine Protein 2+ H Negative Urine Ketones Negative Negative Urine Blood Negative Negative /uL Urine Nitrite Negative Negative Urine Bilirubin Negative Negative Urine Urobilinogen Normal Negative mg/dL Urine Leukocyte Esterase 2+ Negative /uL Urine RBC 3 0 - 3 /hpf Urine WBC 36 0 - 3 /hpf Urine Squamous Epithelial Cells Few <5 /hpf Urine Bacteria Few H None Seen /hpf Urine Glucose 3+ H Normal mg/dL Troponin I High Sensitivity 27 </=54 ng/L White Blood Count 11.5 H 4.4-10.8 10^3/uL Red Blood Count 3.84 L 4.5-5.90 10^6/uL Hemoglobin 11.8 L 13.5-17.5 g/dL Hematocrit 36.1 L 41.0-53.0 % Mean Corpuscular Volume 94.0 80.0-100.0 fL Mean Corpuscular Hemoglobin 30.6 28.0-32.0 pg Mean Corpuscular Hemoglobin Concent 32.6 32.0-36.0 g/dL Red Cell Distribution Width 15.6 H 11.8-14.3 % Platelet Count 236 140-450 10^3/uL Mean Platelet Volume 8.7 6.9-10.8 fL Neutrophils (%) (Auto) 70.1 37.0-80.0 % Lymphocytes (%) (Auto) 11.3 10.0-50.0 % Monocytes (%) (Auto) 12.5 H 0.0-12.0 % Eosinophils (%) (Auto) 5.5 0.0-7.0 % Basophils (%) (Auto) 0.6 0.0-2.0 % Neutrophils # (Auto) 8.1 1.6-8.6 10 ^3/uL Lymphocytes # (Auto) 1.3 0.4-5.4 10 ^3/uL Monocytes # (Auto) 1.4 H 0-1.3 10 ^3/uL Eosinophils # (Auto) 0.6 0-0.8 10 ^3/uL Basophils # (Auto) 0.1 0-0.2 10 ^3/uL Nucleated Red Blood Cells 0.0 % Prothrombin Time 10.6 9.3-11.8 sec Prothrombin Time INR 1.00 0.9-1.15 Activated Partial Thromboplast Time 29.6 24.5-34.5 SEC D-Dimer, Quantitative 0.78 H 0.0-0.49 mg/L FEU Sodium Level 145 136-145 mmol/L Potassium Level 5.3 H 3.5-5.1 mmol/L Chloride Level 121 H 98-107 mmol/L Carbon Dioxide Level 20 20-31 mmol/L Anion Gap 4 L 5-15 Blood Urea Nitrogen 38 H 9-23 mg/dL Creatinine 1.27 0.700-1.30 mg/dL Glomerular Filtration Rate Calc 63 >90 mL/min BUN/Creatinine Ratio 29.9 H 10.0-20.0 Serum Glucose 234 H 74-106 mg/dL Lactic Acid Level 1.5 0.4-2.0 mmol/L Calcium Level 9.1 8.7-10.4 mg/dL Total Bilirubin 0.4 0.2-1.0 mg/dL Aspartate Amino Transferase (AST) 40 13-40 U/L Alanine Aminotransferase (ALT) 124 H 7-40 U/L Alkaline Phosphatase 251 H 46-116 U/L B-Type Natriuretic Peptide 137.46 0-100 pg/mL Total Protein 6.1 5.7-8.2 g/dL Albumin 3.8 3.2-4.8 g/dL Lipase 42 12-53 U/L Assessment/Plan Assessment/Plan acute hypoxic resp failure likely from chf and asthma ct scan found bilateral pleural effusion will ordered cxr ordered lasix for now ordered albuterol and atrrovent prn sob o2 to keep sats >92% acute on Chronic systolic/diastolic heart failure pt had echo completed 12/2023 ef 55% ordered lasix for now strict i/o;s cards consult fu results trop x3 negative reviewed pt home medication not on lasix acute right lower ext swelling and weeping wound ordered us eval for dvt ordered lasix ordered lovenox for now ordered wound care consult fu results acute perineum swelling likely from chf ordered us scrotum fu results elevation on scrotum area monitor for urinary retention can consider hernandez acute groin cellulitis and tinea cruris ordered ceftriaxone for now ordered nystatin cream acute hyperkalemia ordered lokelma fu repeat k ordered mag and phos fu results acute transaminitis worsening lft from last admission if continued uptrend consider workup with gi referral to be determined by rounding team Type II DM, uncontrolled ordered accucheck ac/hs with sliding scale acute on chronic Asthma/COPD with exacerbation ordered albuterol/atrovent prn sob o2 to keep sats >92% Hypertension, controlled cont home medication chronic GERD cont home medication chronic Obesity enc wt loss and diet change History of left BKA with prosthesis pt has prothesis fall precautions Right toe ulcer healed monitor for breakdown fen/ppx diet hl iv lovenox protonix plan admit to tele cards consult Plan discussed with: Patient, Spouse Date of Service: Jul 15, 2024 Billing Provider: FRANKI REEVES DNP Common Visit Codes: 17827-[id number] INP/OBS CARE (HIGH) FRANKI REEVES DNP Jul 15, 2024 10:58
[2024-07-15] MEDS: ALBUTEROL SULF 2.5 MG/0.5ML(0.5%) NEB SOLN ONE (10:59)
[2024-07-15] MEDS: IPRATROPIUM BROM 0.5 MG/2.5ML INH SOL ONE (10:59)
[2024-07-15] MEDS: LISINOPRIL 5 MG TAB PO ONE (11:23)
[2024-07-15] MEDS: PANTOPRAZOLE 40 MG/10 ML VIAL INJ IV ONE (11:26)
[2024-07-15] MEDS: FUROSEMIDE 100 MG/10ML VIAL IV ONE (11:26)
[2024-07-15] MEDS: SODIUM ZIRCONIUM CYCL 10 GM PAK PO ONE (11:26)
[2024-07-15 11:27] LABS: Magnesium 2.5 mg/dL (1.6-2.6)
[2024-07-15 11:29] LABS: Phosphorus 3.4 mg/dL (2.4-5.1)
[2024-07-15] MEDS: ACCU-CHEK COMFORT CURVE STRIP VI SCH (11:40)
[2024-07-15] MEDS: InsuLIN REG 1unit/0.01ml Soln (100units/ml) SC SCH (11:45)
--- NOTE | 2024-07-15 12:23 | DVH ---
Clinical History: eval for dvt Comparison: None Technique: Duplex Doppler evaluation of the deep venous system of the lower extremity from the common femoral v ein to the popliteal vein including color Doppler and spectral/pulsed waveform analysis was performed . Findings: The common femoral vein demonstrates appropriate compressibility and waveform variability. There is compressibility/patency of the great saphenous vein at the proximal thigh. The femoral vein demonstrates appropriate compressibility and waveform variability. The deep femoral vein demonstrates appropriate compressibility and waveform variability. The popliteal vein demonstrates appropriate compressibility and waveform variability. There is color flow in the tibioperoneal trunk and posterior tibial vein. Moderate right lower extremity subcutaneous edema noted. Impression: 1. No deep venous thrombosis in the right lower extremity. If clinical concern/symptoms persist or w orsen, short-interval follow-up study is suggested. 2. Moderate subcutaneous edema.
--- NOTE | 2024-07-15 12:41 | DVH ---
Right Lower Extremity Arterial Duplex Clinical History: RT LEG SWELLING Comparison: None Technique: Duplex Doppler evaluation including color Doppler and spectral/pulsed waveform analysis of the lower extremity arteries was performed. Findings: RIGHT: Peak systolic velocities are as follows: UROGYNECOLOGY PHYSICIAN 202 cm/s Deep femoral 130 cm/s SFA proximal 195 cm/s SFA mid-portion 179 cm/s SFA distal 119 cm/s Popliteal 119 cm/s Posterior tibial 101 cm/s Anterior tibial 96 cm/s Peroneal nonvisualized cm/s Dorsalis pedis 79 cm/s The waveforms are monophasic with diastolic flow. IMPRESSION: 50-75% stenosis of the right common femoral artery based on peak systolic velocity criteria. 20-49% stenosis of the right proximal and mid superficial femoral artery based on peak systolic veloc ity criteria. Monophasic waveforms in the right dorsalis pedis is suggestive of underlying peripheral arterial dise ase. REFERENCE VALUES, [facility] ([facility]) vascular Imaging Lab Criteria: Peak systolic velocity ranges (in cm/sec) are as follows: <150 cm/s - <20 % stenosis 150-200 cm/s - 20-49% stenosis 200-300 cm/s - 50-75% stenosis >300 cm/s -> 75% stenosis
--- NOTE | 2024-07-15 12:42 | DVH ---
ULTRASOUND OF SCROTUM AND CONTENTS. INDICATION: Testicular pain and swelling. COMPARISON: None TECHNIQUE: Multiple real-time grayscale sonographic and color and duplex Doppler images of the scrotu m and its contents were obtained. FINDINGS: The right testicle measures 3.9 x 2.9 x 1.9 cm. The left testicle measures 3.5 x 2.5 x 2.3 cm. Both testicles demonstrate homogeneous echotexture without evidence of focal lesions. The right epididymis measures 2.2 cm. The left epididymis measures 2.1 cm. Subsequent color and duplex Doppler interrogation of the testes demonstrated symmetric normal vascula r flow to both testicles. No focal areas of hyperemia were seen. Small to moderate bilateral hydrocele. IMPRESSION: Small to moderate bilateral hydrocele.
[2024-07-15] MEDS: CLINDAMYCIN 300MG IV 50 ML IV SCH (14:05)
--- NOTE | 2024-07-15 14:40 | DVHINCON2 ---
Date Seen: Jul 15, 2024 Referring Physician Alexander HOOVER Reason for Consultation CHF History of Present Illness 64-year-old male with PMH for HTN, dm, mild to moderate CAD medically managed, PvD S/P left lower extremity BKA, COPD, presents to the hospital with shortness of breath and right lower extremity swelling with drainage. Patient states edema has been worsening over the last 2 weeks and now has significant scrotal edema as well. Upon evaluation patient states does not have a history of heart failure and is not on any diuretic at home. Previous echo shows normal EF 55% on 12/2023. Upon evaluation in the ER patient noted CT showing bilateral pleural effusion. CXR negative for acute pulmonary disease. BNP elevated at 163. Troponin trending normal. Patient's oxygenation was on the lower side of normal and was placed on O2 supplementation in the ER. EKG reviewed and shows normal sinus rhythm at 71 beats per minute, no acute ST abnormalities noted. Past Medical History CAD HTN HFpEF PVD Left BKA Dm CA type 2 Past Surgical History Coronary angiogram 07/29/2021 showed mod distal LAD apical stenosis of 50%, RCA with proximal to mid 30% stenosis medically managed at that time. Left BKA. Family History: Cardiovascular disease G8 MOTHER Chronic obstructive pulmonary disease G8 MOTHER Social History Denies alcohol, tobacco, or illicit drug use Allergies: Coded Allergies: Ciprofloxacin (Verified Allergy, Unknown, 04/13/19) Influenza Vaccines (Verified Allergy, Unknown, 04/13/19) Penicillins (Verified Allergy, Unknown, 04/13/19) Sulfa Antibiotics (Unverified Allergy, Unknown, 09/27/23) Home Meds Active Scripts Linezolid (Zyvox) 600 Mg Tab, 600 MG PO BID for 5 Days, #10 TAB Prov:NESSA BUTCHER MD 12/20/23 Cefpodoxime Proxetil (Cefpodoxime Proxetil) 200 Mg Tab, 1 TAB PO BID for 3 Days, #6 TAB Prov:JENNIFER CASTRO 12/20/23 Oxybutynin Chloride (Ditropan Xl) 5 Mg Tab, 5 MG PO BID, #30 TAB Prov:ASUNCION DERAS 10/30/22 Tamsulosin Hcl (Flomax) 0.4 Mg Cap, 1 CAP PO DAILY, #30 CAP 11 Refills Prov:ASUNCION DERAS 10/28/22 Tolterodine Tartrate (Tolterodine Tartrate ER) 2 Mg Cap, 2 MG PO BID for 30 Days, #30 CAP Prov:ELISHA GARCIA MD 06/29/22 Finasteride (Finasteride) 5 Mg Tab, 5 MG PO DAILY for 30 Days, #30 TAB 3 Refills Prov:ELISHA GARCIA MD 06/23/22 Reported Medications Lisinopril (Lisinopril) 5 Mg Tab, 1 TAB PO DAILY 12/16/23 Insulin Isophane & Reg (Human) (Humulin 70/30 (70-30) 100 Unit/ml) 1 Units/0.01 Ml Inj Inject 35 units subcutaneously in the morning and 50 units subcutaneously in the evening. 12/16/23 Current Medications Current Medications Medications (Trade) Dose Ordered Sig/Cortez Route PRN Reason Start Time Stop Time Status Last Admin Finasteride (Proscar Tablet) 5 mg DAILY PO 07/16/24 10:00 Lisinopril (Zestril Tablet) 5 mg DAILY PO 07/16/24 10:00 Tamsulosin HCl (Flomax) 0.4 mg DAILY PO 07/16/24 10:00 Tolterodine Tartrate (Detrol) 2 mg BID PO 07/15/24 22:00 Clindamycin Phosphate 50 ml @ 50 mls/hr Q8HR IV 07/15/24 14:00 Pantoprazole Sodium (Protonix) 40 mg DAILY IV 07/16/24 10:00 Albuterol (Ventolin Medneb) 2.5 mg Q4HPRN PRN NEB SHORTNESS OF BREATH 07/15/24 10:15 Ipratropium [place] (Atrovent Medneb) 0.5 mg Q4HPRN PRN NEB SHORTNESS OF BREATH 07/15/24 10:15 Diagnostic Test (Pha) (Accu-Chek Comfort Curve T) 1 strip ACHS 07/15/24 11:30 07/15/24 11:40 Insulin Human Regular (InsuLIN R) ACHS SC 07/15/24 11:30 07/15/24 11:45 Dextrose 50 ml UD PRN IV Blood Sugar LESS THAN 60 07/15/24 10:15 Enoxaparin Sodium (Lovenox) 40 mg DAILY SC 07/16/24 10:00 Furosemide (Lasix Injection) 40 mg BIDD IV 07/15/24 18:00 Nitroglycerin (Ntrostat Sublingual) 0.4 mg Q5MINP PRN SL FOR CHEST PAIN 07/15/24 10:15 Nystatin/ Triamcinolone Acetonide (Mycolog) 1 applic BID TOP 07/15/24 22:00 Review of Systems Constitutional: No: Fever, Chills, Sweats, Weakness, , Other positive: Malaise Eyes: No: Pain, Vision change, Conjunctivae inflammation, Eyelid inflammation, Other, Redness ENT: No: Ear pain, Ear discharge, Nose pain, Nose discharge, Nose congestion, Mouth pain, Mouth swelling, Throat pain, Throat swelling, Other Respiratory: No: Cough, Dry, , Hemoptysis, Pleuritic Pain, Sputum, Wheezing, Other positive: Shortness of breath, SOB with exertion, Wheezing Cardiovascular: ; No: Chest Pain Palpitations, Orthopnea, Paroxysmal Noc. Dyspnea, , Lt Headedness, Other positive: Right lower extremity and scrotal Edema Gastrointestinal: No: Nausea, Vomiting, Abdominal Pain, Diarrhea, Constipation, Melena, Hematochezia, Other Genitourinary: No Dysuria, No Frequency, No Incontinence, No Hematuria, No Retention, No Other Musculoskeletal: neck pain; No: other, shoulder pain, arm pain, back pain, hand pain, leg pain, foot pain Skin: No: Rash, Lesions, Jaundice, Bruising, Other Neurological: Other (Dizziness, headache.); No: Weakness, Numbness, Incoordination, Change in speech, Confusion, Seizures Vital Signs Vital Signs Date Time Temp Pulse Resp B/P (MAP) Pulse Ox O2 Delivery O2 Flow Rate FiO2 07/15/24 12:00 98 07/15/24 11:26 165/72 07/15/24 11:25 18 97 0.0 21 07/15/24 10:59 Room Air* 07/15/24 01:45 98.2 98.2 Physical Exam General appearance: Patient is well-developed, well-nourished, in mild acute distress. HEENT: Exam shows: Normocephalic, atraumatic, PERRLA, EOMI Neck: Supple, no bruits Chest: Equal chest excursion bilaterally. Breath sounds rhonchi. Heart: Rhythm: Regular rate; no murmur or gallop Abdomen: Exam shows: Soft, nontender, nondistended Musculoskeletal: No clubbing, no cyanosis, +3 right lower extremity edema Dermatology: Skin warm, moist. Neurological: Exam shows: Alert and oriented x4, normal speech Available prior records, labs, EKG, rhythm strips reviewed and interpreted Labs/Diagnostic Data Labs Test 07/15/24 11:39 07/15/24 10:55 07/15/24 06:55 07/15/24 04:58 Range/Units POC Glucose 171 H 70-106 mg/dl Phosphorus Level 3.4 2.4-5.1 mg/dL Magnesium Level 2.5 1.6-2.6 mg/dL B-Type Natriuretic Peptide 163.38 0-100 pg/mL Urine Color Colorless Yellow Urine Clarity Turbid H Clear Urine pH 5.5 5.0-9.0 Urine Specific Armour 1.016 1.001-1.035 Urine Protein 2+ H Negative Urine Ketones Negative Negative Urine Blood Negative Negative /uL Urine Nitrite Negative Negative Urine Bilirubin Negative Negative Urine Urobilinogen Normal Negative mg/dL Urine Leukocyte Esterase 2+ Negative /uL Urine RBC 3 0 - 3 /hpf Urine WBC 36 0 - 3 /hpf Urine Squamous Epithelial Cells Few <5 /hpf Urine Bacteria Few H None Seen /hpf Urine Glucose 3+ H Normal mg/dL Troponin I High Sensitivity 27 </=54 ng/L Test 07/15/24 01:52 Range/Units White Blood Count 11.5 H 4.4-10.8 10^3/uL Red Blood Count 3.84 L 4.5-5.90 10^6/uL Hemoglobin 11.8 L 13.5-17.5 g/dL Hematocrit 36.1 L 41.0-53.0 % Mean Corpuscular Volume 94.0 80.0-100.0 fL Mean Corpuscular Hemoglobin 30.6 28.0-32.0 pg Mean Corpuscular Hemoglobin Concent 32.6 32.0-36.0 g/dL Red Cell Distribution Width 15.6 H 11.8-14.3 % Platelet Count 236 140-450 10^3/uL Mean Platelet Volume 8.7 6.9-10.8 fL Neutrophils (%) (Auto) 70.1 37.0-80.0 % Lymphocytes (%) (Auto) 11.3 10.0-50.0 % Monocytes (%) (Auto) 12.5 H 0.0-12.0 % Eosinophils (%) (Auto) 5.5 0.0-7.0 % Basophils (%) (Auto) 0.6 0.0-2.0 % Neutrophils # (Auto) 8.1 1.6-8.6 10 ^3/uL Lymphocytes # (Auto) 1.3 0.4-5.4 10 ^3/uL Monocytes # (Auto) 1.4 H 0-1.3 10 ^3/uL Eosinophils # (Auto) 0.6 0-0.8 10 ^3/uL Basophils # (Auto) 0.1 0-0.2 10 ^3/uL Nucleated Red Blood Cells 0.0 % Prothrombin Time 10.6 9.3-11.8 sec Prothrombin Time INR 1.00 0.9-1.15 Activated Partial Thromboplast Time 29.6 24.5-34.5 SEC D-Dimer, Quantitative 0.78 H 0.0-0.49 mg/L FEU Sodium Level 145 136-145 mmol/L Potassium Level 5.3 H 3.5-5.1 mmol/L Chloride Level 121 H 98-107 mmol/L Carbon Dioxide Level 20 20-31 mmol/L Anion Gap 4 L 5-15 Blood Urea Nitrogen 38 H 9-23 mg/dL Creatinine 1.27 0.700-1.30 mg/dL Glomerular Filtration Rate Calc 63 >90 mL/min BUN/Creatinine Ratio 29.9 H 10.0-20.0 Serum Glucose 234 H 74-106 mg/dL Lactic Acid Level 1.5 0.4-2.0 mmol/L Calcium Level 9.1 8.7-10.4 mg/dL Total Bilirubin 0.4 0.2-1.0 mg/dL Aspartate Amino Transferase (AST) 40 13-40 U/L Alanine Aminotransferase (ALT) 124 H 7-40 U/L Alkaline Phosphatase 251 H 46-116 U/L Total Protein 6.1 5.7-8.2 g/dL Albumin 3.8 3.2-4.8 g/dL Lipase 42 12-53 U/L Assessment (Dr. Landin) * Acute hypoxic respiratory failure in setting of CHF and asthma - on O2 s upplementation. Continue diuresing. * Acute on Chronic diastolic HF- recent echo shows EF 55%. continue diuresis with Lasix 40 mg IV twice daily. Monitor strict I&Os. Follow-up echo. * RLE Edema - ultrasound negative for DVT. Arterial duplex shows 50-70% stenosis of right common femoral artery. Continue aspirin and statin. * Mild CAD - continue aspirin and statin. * HTN- stable on lisinopril * Dyslipidemia - statin * Peripheral vascular disease - continue on statin Portion of the chart may have been created with voice recognition software. Occasional wrong word or sound-alike substitutions may have occurred due to the inherent limitations of voice recognition software. Please read the chart carefully and recognize, using contacts, where the substitutions have occurred. Thank you for allowing me to participate in the management of this patient. The treatment plan was discussed with and agreed upon by patient/family including requesting consultants and ordering of imaging/procedures. Plan discussed with: Patient Date of Service: Jul 15, 2024 Billing Provider: BHARATH LANDIN MD Cardiology Common Codes: [id number] INP/OBS CARE (High), [id number] CARE-EACH +30MIN JAYDON LUJAN [facility] Jul 15, 2024 14:40
[2024-07-15] MEDS: FUROSEMIDE 40 MG/4 ML VIAL IV SCH (18:47)
[2024-07-15] MEDS: ATORVASTATIN 20 MG TAB PO SCH (21:16)
[2024-07-15] MEDS: TOLTERODINE TARTRATE 1 MG TAB PO SCH (21:17)
[2024-07-15] MEDS: ENOXAPARIN SOD 100 MG/1 ML SYRINGE SC SCH (21:18)
[2024-07-15] MEDS: NYSTATIN-TRIAMCINOLONE TOPICAL CRE 15GM TOP SCH (22:00)
[2024-07-15] MEDS: IOHEXOL 350 MG/ML 100ML IJ ONE (22:13)
[2024-07-16] VITALS (10 sets, daily range): BP systolic 137–174; BP diastolic 62–70; PULSE 75–84; RESP 18–93; TEMP 97.5–98.5; O2SAT 93–96
--- NOTE | 2024-07-16 04:46 | DVH ---
INDICATION: eval for pe TECHNIQUE: Multidetector CTA of the chest was performed of the chest with 100 cc of intravenous contr ast. PULMONARY ANGIOGRAPHY PROTOCOL was utilized using a bolus-tracking technique centered on the fco n pulmonary artery. Axial, coronal and sagittal multiplanar and MIP reformats were performed. Radiation Dose Information: CT Dose: CTDI volume is 25 mGy. Dose-length product is 250 mGy*cm The dose indicators for CT are the volume Computed Tomography (CT) Dose Index (CTDIvol) and the Dose Length Product (DLP), and are measured in units of mGy and mGy-cm, respectively. These indicators are not patient dose, but values generated from the CT scanner acquisition factors. The report includes radiation exposure data for exposures received during this examination. Findings: Pulmonary artery: Normal caliber of the pulmonary artery. No large central or large segmental pulmo nary embolism. Lower neck: Normal thyroid. Lungs: No focal consolidation, pulmonary mass, or suspicious pulmonary nodule. Heart/Vascular Structures: Normal heart size. Normal caliber and enhancement of the aorta. Lymph Nodes: No adenopathy Pleura: Trace bilateral pleural effusions. Musculoskeletal: No acute osseous abnormality. Upper abdomen: Limited portions of the upper abdomen are unremarkable. IMPRESSION: 1. No pulmonary embolism. 2. Cardiomegaly with CHF. Trace bilateral pleural effusions.
[2024-07-16] MEDS: InsuLIN REG 1unit/0.01ml Soln (100units/ml) IV ONE (09:00)
[2024-07-16] MEDS: ASPirin 81 mg TAB PO SCH (09:11)
[2024-07-16] MEDS: FINASTERIDE 5 MG TAB PO SCH (09:11)
[2024-07-16] MEDS: TAMSULOSIN HYDROCHLORIDE 0.4 MG CAP PO SCH (09:11)
[2024-07-16] MEDS: LISINOPRIL 5 MG TAB PO SCH (09:27)
[2024-07-16] MEDS: FUROSEMIDE 20 MG/2 ML VIAL IV ONE (09:36)
[2024-07-16] MEDS: PANTOPRAZOLE 40 MG/10 ML VIAL INJ IV SCH (09:48)
[2024-07-16] MEDS ORDERED: ENOXAPARIN SOD 40 MG/0.4 ML SYRINGE SC SCH (10:00)
[2024-07-16 10:23] LABS: Basophils # (auto) 0 10 ^3/uL (0-0.2); Basophils % (auto) 0.3 % (0.0-2.0); Eosinophils # (auto) 0 10 ^3/uL (0-0.8); Eosinophils % (auto) 0.2 % (0.0-7.0); Hemoglobin 12.4 g/dL (13.5-17.5); Lymphocytes # (auto) 1.6 10 ^3/uL (0.4-5.4); Mean Corpuscular Hgb Conc. 31.9 g/dL (32.0-36.0); Mean Corpuscular Volume 94.1 fL (80.0-100.0); Monocytes # (auto) 1.6 10 ^3/uL (0-1.3); Neutrophils # (auto) 9.9 10 ^3/uL (1.6-8.6); Neutrophils % (auto) 75.5 % (37.0-80.0); Nucleated Red Blood Cells % 0.1 %; Platelet Count (auto) 252 10^3/uL (140-450); Red Blood Cells 4.14 10^6/uL (4.5-5.90); Red Cell Distribution Width 15.4 % (11.8-14.3); White Blood Cell 13.1 10^3/uL (4.4-10.8)
[2024-07-16 10:48] LABS: Chloride 113 mmol/L (98-107); Potassium 4.7 mmol/L (3.5-5.1); Sodium 141 mmol/L (136-145)
[2024-07-16 10:49] LABS: Anion Gap 9 (5-15); Carbon Dioxide 19 mmol/L (20-31)
[2024-07-16 10:50] LABS: Calcium 9.3 mg/dL (8.7-10.4)
[2024-07-16 10:54] LABS: Glucose 294 mg/dL (74-106)
[2024-07-16 10:55] LABS: BUN/Creatinine Ratio 26.6 (10.0-20.0); Blood Urea Nitrogen 38 mg/dL (9-23)
--- NOTE | 2024-07-16 15:00 | DVHPN2 ---
Consult Progress Note Subjective Patient reports: Feels better Review of Systems: MSK:Abnormal (RLE pain due to cellulitis. ) Objective vital signs Vital Sign Date Time Temp Pulse Resp B/P (MAP) Pulse Ox O2 Delivery O2 Flow Rate FiO2 07/16/24 09:36 174/70 07/16/24 09:00 98.1 84 20 96 98.1 07/16/24 08:15 Room Air* 0 96 21 Total Intake and Output 07/15/24 07/15/24 07/16/24 15:00 23:00 07:00 Intake Total 170 ml 350 ml Output Total 400 ml 2150 ml Balance -230 ml -1800 ml medications Current Medications Medications Dose Ordered Sig/Cortez Route Start Time Stop Time Status Last Admin Dose Admin Finasteride 5 mg DAILY PO 07/16/24 10:00 07/16/24 09:11 5 MG Lisinopril 5 mg DAILY PO 07/16/24 10:00 07/16/24 09:27 5 MG Tamsulosin HCl 0.4 mg DAILY PO 07/16/24 10:00 07/16/24 09:11 0.4 MG Tolterodine Tartrate 2 mg BID PO 07/15/24 22:00 07/16/24 09:11 2 MG Clindamycin Phosphate 50 ml @ 50 mls/hr Q8HR IV 07/15/24 14:00 07/16/24 14:41 50 MLS/HR Pantoprazole Sodium 40 mg DAILY IV 07/16/24 10:00 07/16/24 09:48 40 MG Albuterol 2.5 mg Q4HPRN PRN NEB 07/15/24 10:15 Ipratropium [place] 0.5 mg Q4HPRN PRN NEB 07/15/24 10:15 Diagnostic Test (Pha) 1 strip ACHS 07/15/24 11:30 07/16/24 13:03 1 STRIP Insulin Human Regular ACHS SC 07/15/24 11:30 07/16/24 13:06 8 UNITS Dextrose 50 ml UD PRN IV 07/15/24 10:15 Furosemide 40 mg BIDD IV 07/15/24 18:00 07/16/24 05:02 40 MG Nitroglycerin 0.4 mg Q5MINP PRN SL 07/15/24 10:15 Nystatin/ Triamcinolone Acetonide 1 applic BID TOP 07/15/24 22:00 Atorvastatin Calcium 40 mg HS PO 07/15/24 22:00 07/15/24 21:16 40 MG Aspirin 81 mg DAILY PO 07/16/24 10:00 07/16/24 09:11 81 MG Ceftriaxone Sodium 50 ml @ 100 mls/hr DAILY@09 IV 07/17/24 09:00 Enoxaparin Sodium 40 mg DAILY SC 07/17/24 10:00 Examination: CVS:Abnormal (+2 RLE edema) laboratory and microbiology Laboratory Tests 07/16/24 09:45 Test 07/16/24 09:45 Range/Units Serum Glucose 294 H 74-106 mg/dL Problem List/Assessment/Plan Problem List/Assessment/Plan Assessment (Dr. Moffett) * Acute hypoxic respiratory failure in setting of CHF and asthma - on O2 supplementation. Continue diuresing. * Acute on Chronic diastolic HF- recent echo shows EF 55%. continue diuresis with Lasix 40 mg IV twice daily. Monitor strict I&Os. Follow-up echo. * RLE Edema - ultrasound negative for DVT. Arterial duplex shows 50-70% stenosis of right common femoral artery. Continue aspirin and statin. * Mild CAD - continue aspirin and statin. * HTN- stable on lisinopril * Dyslipidemia - statin * Peripheral vascular disease - continue on statin. Outpatient follow-up for possible peripheral angiogram. * CKD - monitor response to diuresis. Case Discussed with Dr Moffett. Continue diuresing. Monitor kidney function. Breathing stable on room air. Plan for outpatient follow-up for continued monitoring of peripheral vascular disease. This medical document was created using an electronic medical record system with voice recognition software and computerized dictation system. Although this document has been carefully reviewed, there might still be some phonetic and typographical errors. Occasional wrong-word or ``sound-alike substitutions may have occurred due to the inherent limitations of voice recognition software. These areas are purely typographical due to imperfections of the software programs and do not reflect any compromise in the patient's medical care. Please read the chart carefully and recognize, using context, where these substitutions have occurred. Portion of the chart may have been created with voice recognition software. Occasional wrong word or sound-alike substitutions may have occurred due to the inherent limitations of voice recognition software. Please read the chart carefully and recognize, using contacts, where the substitutions have occurred. Thank you for allowing me to participate in the management of this patient. The treatment plan was discussed with and agreed upon by patient/family including requesting consultants and ordering of imaging/procedures. Plan discussed with: Patient Date of Service: Jul 16, 2024 Billing Provider: BHARATH MOFFETT MD Common Visit Codes: [id number] INP/OBS CARE(HIGH) JAYDON LUJAN AGACNP Jul 16, 2024 15:00
--- NOTE | 2024-07-16 17:28 | DVHPNRES ---
Progress Note Date Seen: Jul 16, 2024 Resident Creating Document: ITA ANDRADE RESIDENT Has the PT tested + for MRSA If YES, has PT been informed?: No Medical Necessity Reason Pt with a Central, PICC or Fol: No Subjective Review of Systems This is a 64-year-old male with past medical history of hypertension, type 2 diabetes, hyperlipidemia, GERD, asthma, COPD, DC, history of stent placement in the bladder by Dr. Lofton, surgical history of left below-knee amputation and right toe amputation. The patient presented to the ED with chief complaint of shortness of breath, abdominal swelling and right lower extremity swelling. Patient states that he does not have any past medical history of CHF and last echocardiogram performed on 01/04 showed an LVEF of 55%. The patient states that the abdomen and right lower extremity both were significantly swelling associated with shortness of breaths. The patient also reports significant testicular swelling for which testicular ultrasound was performed showing mild to moderate bilateral hydro sella. A right lower extremity arterial Doppler was performed showing 50-75% stenosis of right common femoral artery and 20-49% stenosis of right proximal and mid superficial femoral artery. We ordered a CT scan of the abdomen which showed mild bilateral pleural effusions but no ascites or abdominal masses at this time. Initial chest x-ray was grossly unremarkable and right lower extremity venous Doppler showed no evidence of DVT. UA came back positive suggesting UTI for which IV ceftriaxone was started. The patient was also started on furosemide 40 mg IV b.i.d. and was started on his home medications aspirin 81 mg q.d., atorvastatin 40 mg q.d. and the patient was admitted for further assessment and management. Patient seen and examined at bedside. Patient states that abdominal swelling has been improving compared to admission but the right lower extremity still swelling. Patient is currently not requiring oxygen supplementation at this time. We will continue IV furosemide 40 mg b.i.d. we discontinued enoxaparin therapeutic dose since pulmonary embolism was ruled out with CT angio of the chest. We will wait for urine bacterial culture and continue current medications at this time. ROS Constitutional: Denies weight loss, fever and chills. HEENT: Denies changes in vision and hearing. Respiratory: Reports mild shortness of breath and denies cough Cardiovascular: Denies chest discomfort or palpitations GI: Reports mild to moderate abdominal swelling which has improved compared to admission. Denies abdominal pain, nausea, vomiting and diarrhea. : Denies dysuria and urinary frequency. Musculoskeletal: Reports significant swelling in the right lower extremity. Denies myalgias and joint pain Skin: Denies rash and pruritus. Neurological: Denies dizziness, headache, vision or hearing problems Objective vital signs Vital Sign Date Time Temp Pulse Resp B/P (MAP) Pulse Ox O2 Delivery O2 Flow Rate FiO2 07/16/24 09:36 174/70 07/16/24 09:00 98.1 84 20 96 98.1 07/16/24 08:15 Room Air* 0 96 21 Total Intake and Output 07/15/24 07/15/24 07/16/24 14:59 22:59 06:59 Intake Total 170 ml 350 ml Output Total 400 ml 2150 ml Balance -230 ml -1800 ml medications Current Medications Medications Dose Ordered Sig/Cortez Route Start Time Stop Time Status Last Admin Dose Admin Finasteride 5 mg DAILY PO 07/16/24 10:00 07/16/24 09:11 5 MG Lisinopril 5 mg DAILY PO 07/16/24 10:00 07/16/24 09:27 5 MG Tamsulosin HCl 0.4 mg DAILY PO 07/16/24 10:00 07/16/24 09:11 0.4 MG Tolterodine Tartrate 2 mg BID PO 07/15/24 22:00 07/16/24 09:11 2 MG Clindamycin Phosphate 50 ml @ 50 mls/hr Q8HR IV 07/15/24 14:00 07/16/24 14:41 50 MLS/HR Pantoprazole Sodium 40 mg DAILY IV 07/16/24 10:00 07/16/24 09:48 40 MG Albuterol 2.5 mg Q4HPRN PRN NEB 07/15/24 10:15 Ipratropium [place] 0.5 mg Q4HPRN PRN NEB 07/15/24 10:15 Diagnostic Test (Pha) 1 strip ACHS 07/15/24 11:30 07/16/24 17:05 1 STRIP Insulin Human Regular ACHS SC 07/15/24 11:30 07/16/24 17:07 4 UNITS Dextrose 50 ml UD PRN IV 07/15/24 10:15 Furosemide 40 mg BIDD IV 07/15/24 18:00 07/16/24 05:02 40 MG Nitroglycerin 0.4 mg Q5MINP PRN SL 07/15/24 10:15 Nystatin/ Triamcinolone Acetonide 1 applic BID TOP 07/15/24 22:00 Atorvastatin Calcium 40 mg HS PO 07/15/24 22:00 07/15/24 21:16 40 MG Aspirin 81 mg DAILY PO 07/16/24 10:00 07/16/24 09:11 81 MG Ceftriaxone Sodium 50 ml @ 100 mls/hr DAILY@09 IV 07/17/24 09:00 Enoxaparin Sodium 40 mg DAILY SC 07/17/24 10:00 Examination Physical Examination General: Patient alert and oriented in person, place and time. Patient following commands. HEENT: Normocephalic, atraumatic, moist mucous membranes Respiratory/pulmonary: There are very mild crackles on bilateral lung bases but no wheezes at this time Cardiovascular: Normal regular heart sounds S1 and S2 with no associated murmurs Abdomen: Abdomen mildly distended, there is minimal pain to palpation at the hypogastric region. no palpable masses. Extremities: There is 1+ pitting edema on right lower extremity. Patient has left below-knee amputation on left lower extremity. Skin: There is slight erythema in the right lower extremity which has been chronic. No rashes or pruritus, there is no sacral edema present at this time. Neurological: Intact cranial nerves with no focal neurologic deficits laboratory and microbiology Laboratory Tests 07/16/24 09:45 Test 07/16/24 09:45 Range/Units Serum Glucose 294 H 74-106 mg/dL Problem List/Assessment/Plan Problem List/Assessment/Plan Assessment/Plan Acute hypoxic respiratory failure likely due to acute on chronic diastolic heart failure -initial BNP was slightly elevated at 137 -initial chest x-ray showed mild bilateral vascular congestion -CT angio of the chest showed minimal bilateral pleural effusion -start furosemide 40 mg IV b.i.d. -Trops were negative -monitor blood pressure -currently not requiring oxygen supplementation, at room air at this time -monitor strict in's and out Acute on chronic systolic/diastolic heart failure -last echocardiogram performed on 01/04 showed an LVEF of 55% with normal cardiac valves and no pericardial effusion -we will repeat echo at this time -continue furosemide 40 mg IV b.i.d. -monitor strict in's and out UTI -urinalysis came back suggesting UTI -start IV ceftriaxone -ordered urine culture Right lower extremity swelling, ruled out DVT -right lower extremity venous Doppler showed no evidence of DVT at this time -right lower extremity arterial Doppler showed 50-75% stenosis of right common femoral artery and 20-49% stenosis of right proximal and mid superficial femoral artery -cardiology on board Peripheral artery disease -right lower extremity arterial Doppler showed 50-75% stenosis of right common femoral artery and 20-49% stenosis of right proximal and mid superficial femoral artery -continue atorvastatin 40 mg q.d. -continue aspirin 81 mg q.d. BPH -continue tamsulosin 0.4 mg q.d. Primary hypertension -continue lisinopril 5 mg q.d. -monitor blood pressure closely GERD -continue pantoprazole 40 mg q.d. Goals of care discussed with the patient at bedside for >23min, FULL CODE Plan discussed with Dr. Hess Plan discussed with: Patient My Orders My Orders Orders - ITA ANDRADE Procedure Category Date Status Time Urine Bacterial ZENAIDA 07/16/24 In Process Culture 08:59 Communication Order ORDERS 07/16/24 Transmitted 09:00 Ceftriaxone 1gm/50ml PHA 07/17/24 In Process D5w (Rocephin) 09:00 Enoxaparin Sodium PHA 07/17/24 In Process (Lovenox) 10:00 Date of Service: Jul 16, 2024 Billing Provider: LOLIS HESS MD Common Visit Codes: [id number] INP/OBS CARE(HIGH) Secondary Visit Codes: [id number] CARE PLAN 30 MINUTES ITA ANDRADE Jul 16, 2024 17:28 LOLIS HESS MD Jul 17, 2024 21:56
[2024-07-17] VITALS (10 sets, daily range): BP systolic 144–169; BP diastolic 61–77; PULSE 77–92; RESP 15–19; TEMP 97.7–99.1; O2SAT 91–96
[2024-07-17] MEDS: cloNIDine HCL 0.1 MG TAB PO ONE (01:02)
[2024-07-17] MEDS: HYDROcodone-ACET 5/325MG TAB PO ONE (01:04)
[2024-07-17 06:36] LABS: Chloride 112 mmol/L (98-107); Potassium 4.4 mmol/L (3.5-5.1); Sodium 144 mmol/L (136-145)
[2024-07-17 06:37] LABS: Anion Gap 12 (5-15); Calcium 9.1 mg/dL (8.7-10.4); Carbon Dioxide 20 mmol/L (20-31)
[2024-07-17 06:42] LABS: BUN/Creatinine Ratio 30.2 (10.0-20.0); Blood Urea Nitrogen 42 mg/dL (9-23); Glucose 263 mg/dL (74-106)
[2024-07-17 06:54] LABS: Basophils # (auto) 0.1 10 ^3/uL (0-0.2); Basophils % (auto) 0.5 % (0.0-2.0); Eosinophils # (auto) 0.2 10 ^3/uL (0-0.8); Eosinophils % (auto) 2.3 % (0.0-7.0); Hematocrit 36.1 % (41.0-53.0); Hemoglobin 11.6 g/dL (13.5-17.5); Lymphocytes # (auto) 1.6 10 ^3/uL (0.4-5.4); Lymphocytes % (auto) 15.3 % (10.0-50.0); Mean Corpuscular Hgb Conc. 32.1 g/dL (32.0-36.0); Mean Corpuscular Volume 93.5 fL (80.0-100.0); Monocytes # (auto) 1.3 10 ^3/uL (0-1.3); Monocytes % (auto) 12.2 % (0.0-12.0); Neutrophils # (auto) 7.3 10 ^3/uL (1.6-8.6); Neutrophils % (auto) 69.7 % (37.0-80.0); Nucleated Red Blood Cells % 0.1 %; Platelet Count (auto) 233 10^3/uL (140-450); Red Blood Cells 3.86 10^6/uL (4.5-5.90); Red Cell Distribution Width 15.3 % (11.8-14.3); White Blood Cell 10.5 10^3/uL (4.4-10.8)
[2024-07-17] MEDS: cefTRIAXone 1GM/50ML D5W 50 ML IV SCH (09:08)
[2024-07-17] MEDS: ENOXAPARIN SOD 40 MG/0.4 ML SYRINGE SC SCH (09:42)
[2024-07-17] MEDS: LISINOPRIL 5 MG TAB PO SCH (10:15)
--- NOTE | 2024-07-17 10:16 | DVHPNRES ---
Progress Note Date Seen: Jul 17, 2024 Resident Creating Document: ITA ANDRADE RESIDENT Has the PT tested + for MRSA If YES, has PT been informed?: No Medical Necessity Reason Pt with a Central, PICC or Fol: No Subjective Review of Systems This is a 36-year-old female who denies past medical history of relevance, who presented to ED for evaluation of elevated blood pressure. Patient reports she had a PCP appointment the day before coming to the ED, vital signs at the office read high and she was then sent to [facility] ED. Patient was given a couple doses of Clonidine during her visit which did not bring her blood pressure down so she was sent home with a prescription of clonidine. Patient reports on admission that she got her medication from the pharmacy and took a dose but pressure was still reading high associated with generalized headache and dizziness, getting worse that prompted this visit. Upon admission initial labs were grossly unremarkable and initial blood pressure was 161/108 mmhg. Urinalysis came back negative for UTI. Patient was admitted for further assessment and management of hypertensive urgency. Patient seen and examined at bedside. Patient still complains of right lower extremity swollen which he states that has significantly decreased compared to admission. The patient still reports that he is not able to stand up and walk due to deconditioning still getting a little shortness of breath. Patient is not requiring any oxygen supplementation at rest but there are still very minimal crackles on bilateral lung bases that has improved, rest of lung samano sounds grossly clear. We ordered PT to start working on active movement and walking to prevent deconditioning. ROS Constitutional: Denies weight loss, fever and chills. HEENT: Denies changes in vision and hearing. Respiratory: Reports mild shortness of breaths specially when trying moving around. No SOB at rest. Denies shortness of breath and cough Cardiovascular: Denies chest discomfort or palpitations GI: Denies abdominal pain, nausea, vomiting and diarrhea. : Denies dysuria and urinary frequency. Musculoskeletal: Reports mild to moderate swelling in the right lower extremity. Denies myalgias and joint pain Skin: Denies rash and pruritus. Neurological: Denies dizziness, headache, vision or hearing problems Objective vital signs Vital Sign Date Time Temp Pulse Resp B/P (MAP) Pulse Ox O2 Delivery O2 Flow Rate FiO2 07/17/24 09:00 98.3 77 15 144/65 (91) 91 98.3 07/17/24 08:00 Room Air* 0 96 21 Total Intake and Output 07/16/24 07/16/24 07/17/24 15:00 23:00 07:00 Intake Total 550 ml 600 ml Output Total 2025 ml 3500 ml Balance -1475 ml -2900 ml medications Current Medications Medications Dose Ordered Sig/Cortez Route Start Time Stop Time Status Last Admin Dose Admin Finasteride 5 mg DAILY PO 07/16/24 10:00 07/16/24 09:11 5 MG Lisinopril 5 mg DAILY PO 07/16/24 10:00 07/16/24 09:27 5 MG Tamsulosin HCl 0.4 mg DAILY PO 07/16/24 10:00 07/16/24 09:11 0.4 MG Tolterodine Tartrate 2 mg BID PO 07/15/24 22:00 07/16/24 21:00 2 MG Clindamycin Phosphate 50 ml @ 50 mls/hr Q8HR IV 07/15/24 14:00 07/17/24 05:12 50 MLS/HR Pantoprazole Sodium 40 mg DAILY IV 07/16/24 10:00 07/17/24 09:42 40 MG Albuterol 2.5 mg Q4HPRN PRN NEB 07/15/24 10:15 Ipratropium [place] 0.5 mg Q4HPRN PRN NEB 07/15/24 10:15 Diagnostic Test (Pha) 1 strip ACHS 07/15/24 11:30 07/17/24 06:17 1 STRIP Insulin Human Regular ACHS SC 07/15/24 11:30 07/17/24 06:21 4 UNITS Dextrose 50 ml UD PRN IV 07/15/24 10:15 Furosemide 40 mg BIDD IV 07/15/24 18:00 07/17/24 05:16 40 MG Nitroglycerin 0.4 mg Q5MINP PRN SL 07/15/24 10:15 Nystatin/ Triamcinolone Acetonide 1 applic BID TOP 07/15/24 22:00 Atorvastatin Calcium 40 mg HS PO 07/15/24 22:00 07/16/24 21:00 40 MG Aspirin 81 mg DAILY PO 07/16/24 10:00 07/16/24 09:11 81 MG Ceftriaxone Sodium 50 ml @ 100 mls/hr DAILY@09 IV 07/17/24 09:00 11/4/24 09:08 100 MLS/HR Enoxaparin Sodium 40 mg DAILY SC 07/17/24 10:00 07/17/24 09:42 40 MG Examination Physical Examination General: Patient alert and oriented in person, place and time. Patient following commands. HEENT: Normocephalic, atraumatic, moist mucous membranes Respiratory/pulmonary: There are still very mild crackles on bilateral lung bases but no wheezes at this time Cardiovascular: Normal regular heart sounds S1 and S2 with no associated murmurs Abdomen: Abdomen mildly distended, there is minimal pain to palpation at the hypogastric region. no palpable masses. Extremities: There is 1+ pitting edema on right lower extremity. Patient has left below-knee amputation on left lower extremity. Skin: There is still slight erythema in the right lower extremity which has been chronic. No rashes or pruritus, there is no sacral edema present at this time. Neurological: Intact cranial nerves with no focal neurologic deficits laboratory and microbiology Laboratory Tests 07/17/24 05:28 Test 07/17/24 05:28 Range/Units Serum Glucose 263 H 74-106 mg/dL Microbiology Date/Time Source Procedure Growth Status 07/16/24 15:25 Voided Urine Urine Culture - Preliminary Resulted Problem List/Assessment/Plan Problem List/Assessment/Plan Assessment/Plan Acute hypoxic respiratory failure likely due to acute on chronic diastolic heart failure -initial BNP was slightly elevated at 137 -initial chest x-ray showed mild bilateral vascular congestion -CT angio of the chest showed minimal bilateral pleural effusion -start furosemide 40 mg IV b.i.d. -Trops were negative -monitor blood pressure -currently not requiring oxygen supplementation, at room air at this time -monitor strict in's and out -Requested physical therapy Acute on chronic systolic/diastolic heart failure -last echocardiogram performed on 01/04 showed an LVEF of 55% with normal cardiac valves and no pericardial effusion -we will repeat echo at this time -continue furosemide 40 mg IV b.i.d. -monitor strict in's and out UTI -urinalysis came back suggesting UTI -Continue IV ceftriaxone -Urine culture came back showing more than 3 different colonies which might be consistent with contamination/colonization. Right lower extremity swelling, ruled out DVT -right lower extremity venous Doppler showed no evidence of DVT at this time -right lower extremity arterial Doppler showed 50-75% stenosis of right common femoral artery and 20-49% stenosis of right proximal and mid superficial femoral artery -cardiology on board Peripheral artery disease -right lower extremity arterial Doppler showed 50-75% stenosis of right common femoral artery and 20-49% stenosis of right proximal and mid superficial femoral artery -continue atorvastatin 40 mg q.d. -continue aspirin 81 mg q.d. BPH -continue tamsulosin 0.4 mg q.d. Primary hypertension -Increase lisinopril to 10 mg q.d. -monitor blood pressure closely GERD -continue pantoprazole 40 mg q.d. Goals of care discussed with the patient at bedside for >23min, FULL CODE Plan discussed with Dr. Hess Plan discussed with: Patient My Orders My Orders Orders - ITA ANDRADE Procedure Category Date Status Time Enoxaparin Sodium PHA 07/17/24 In Process (Lovenox) 10:00 Strict I & O MARCY 07/16/24 In Process 17:19 Pt Request For Service PT 07/17/24 Logged 09:28 Date of Service: Jul 17, 2024 Billing Provider: LOLIS HESS MD Common Visit Codes: [id number] INP/OBS CARE(HIGH) ITA ANDRADE Jul 17, 2024 10:16 LOLIS HESS MD Jul 17, 2024 21:57
--- NOTE | 2024-07-17 10:39 | DVHPN2 ---
Consult Progress Note Subjective Other Systems: Patient remains in normal sinus rhythm on radiation monitor. No cardiac events reported Objective vital signs Vital Sign Date Time Temp Pulse Resp B/P (MAP) Pulse Ox O2 Delivery O2 Flow Rate FiO2 07/17/24 09:00 98.3 77 15 144/65 (91) 91 98.3 07/17/24 08:00 Room Air* 0 96 21 Total Intake and Output 07/16/24 07/16/24 07/17/24 15:00 23:00 07:00 Intake Total 550 ml 600 ml Output Total 2025 ml 3500 ml Balance -1475 ml -2900 ml medications Current Medications Medications Dose Ordered Sig/[place] Route Start Time Stop Time Status Last Admin Dose Admin Finasteride 5 mg DAILY PO 07/16/24 10:00 07/16/24 09:11 5 MG Tamsulosin HCl 0.4 mg DAILY PO 07/16/24 10:00 07/16/24 09:11 0.4 MG Tolterodine Tartrate 2 mg BID PO 07/15/24 22:00 07/16/24 21:00 2 MG Clindamycin Phosphate 50 ml @ 50 mls/hr Q8HR IV 07/15/24 14:00 07/17/24 05:12 50 MLS/HR Pantoprazole Sodium 40 mg DAILY IV 07/16/24 10:00 07/17/24 09:42 40 MG Albuterol 2.5 mg Q4HPRN PRN NEB 07/15/24 10:15 Ipratropium [place] 0.5 mg Q4HPRN PRN NEB 07/15/24 10:15 Diagnostic Test (Pha) 1 strip ACHS 07/15/24 11:30 07/17/24 06:17 1 STRIP Insulin Human Regular ACHS SC 07/15/24 11:30 07/17/24 06:21 4 UNITS Dextrose 50 ml UD PRN IV 07/15/24 10:15 Furosemide 40 mg BIDD IV 07/15/24 18:00 07/17/24 05:16 40 MG Nitroglycerin 0.4 mg Q5MINP PRN SL 07/15/24 10:15 Nystatin/ Triamcinolone Acetonide 1 applic BID TOP 07/15/24 22:00 Atorvastatin Calcium 40 mg HS PO 07/15/24 22:00 07/16/24 21:00 40 MG Aspirin 81 mg DAILY PO 07/16/24 10:00 07/16/24 09:11 81 MG Ceftriaxone Sodium 50 ml @ 100 mls/hr DAILY@09 IV 07/17/24 09:00 07/17/24 09:08 100 MLS/HR Enoxaparin Sodium 40 mg DAILY SC 07/17/24 10:00 07/17/24 09:42 40 MG Lisinopril 10 mg DAILY PO 07/17/24 10:15 Examination: GENERAL:Normal, LUNGS:Normal, CVS:Normal, SKIN:Abnormal (Right lower extremity redness and edema), NEURO:Abnormal laboratory and microbiology Laboratory Tests 07/17/24 05:28 Test 07/17/24 05:28 Range/Units Serum Glucose 263 H 74-106 mg/dL Problem List/Assessment/Plan Problem List/Assessment/Plan Acute on chronic HFpEF, NYHA class III Acute hypoxic respiratory failure Peripheral arterial disease Hypertension Cellulitis Hx of left BKA Morbid obesity, Class 2 Plan/recommendations (Dr. Landin): Patient seen and examined at bedside with . Transthoracic echocardiogram reveals EF 55% (on 12/17/23). We will recommend to continue single antiplatelet therapy and lipid-lowering agent. We will also recommend to continue blood pressure control. Diuresis as tolerated. Right lower extremity arterial duplex reveals 50-75% stenosis of the right common femoral artery. At this time, the patient is receiving antibiotics for cellulitis. We will recommend for cellulitis to resolve before any further cardiac workup. We will recommend for outpatient workup for possible peripheral angiogram. There is no further inpatient workup indicated at this time. Thank you for allowing us to care for this patient. Please call with any questions or concerns. This medical document was created using an electronic medical record system with voice recognition software and computerized dictation system. Although this document has been carefully reviewed, there might still be some phonetic and typographical errors. Occasional wrong-word or ``sound-alike substitutions may have occurred due to the inherent limitations of voice recognition software. These areas are purely typographical due to imperfections of the software programs and do not reflect any compromise in the patient's medical care. Please read the chart carefully and recognize, using context, where these substitutions have occurred. Plan discussed with: Patient Date of Service: Jul 17, 2024 Billing Provider: BHARATH LANDIN MD Common Visit Codes: [id number] INP/OBS CARE(HIGH) KORI LOWE [facility] Jul 17, 2024 10:39
[2024-07-17] MEDS: CLINDAMYCIN 600MG IV 50 ML IV ONE (10:43)
--- NOTE | 2024-07-17 10:48 | ECG ---
[facility] Test Date: 2024-07-15 Test Time: 02:12:01 Pat Name: CITLALI HUIZAR Department: ER Room: 0280T A Gender: M Case Packer: JOSEF : [id number] Requested By: DEVEN WALSH Order Number: [id number] Reading MD: Rubio Banks Measurements Intervals [place] Rate: 71 P: 70 [place]: 163 QRS: 56 QRSD: 95 T: 69 QT: 378 QTc: 411 Interpretive Statements Sinus rhythm Low voltage, extremity and precordial leads Electronically Signed On 07-20-2024 10:12:28 PST by Rubio Banks Please click the below link to view image of tracing.
[2024-07-18] VITALS (9 sets, daily range): BP systolic 159–187; BP diastolic 66–78; PULSE 89–99; RESP 16–17; TEMP 36.8; O2SAT 93–96
[2024-07-18] MEDS: ONDANSETRON HCL 4 MG/2 ML VIAL IV PRN (01:41)
[2024-07-18] MEDS: hydrALAZINE HCL 20 MG/ML VL IV PRN (01:42)
[2024-07-18 06:25] LABS: Basophils # (auto) 0 10 ^3/uL (0-0.2); Basophils % (auto) 0.1 % (0.0-2.0); Eosinophils # (auto) 0 10 ^3/uL (0-0.8); Hematocrit 38.3 % (41.0-53.0); Hemoglobin 12.6 g/dL (13.5-17.5); Lymphocytes # (auto) 0.9 10 ^3/uL (0.4-5.4); Lymphocytes % (auto) 6.2 % (10.0-50.0); Mean Corpuscular Hemoglobin 30.7 pg (28.0-32.0); Mean Corpuscular Hgb Conc. 32.8 g/dL (32.0-36.0); Mean Corpuscular Volume 93.8 fL (80.0-100.0); Monocytes # (auto) 1.3 10 ^3/uL (0-1.3); Monocytes % (auto) 9.1 % (0.0-12.0); Neutrophils # (auto) 12.2 10 ^3/uL (1.6-8.6); Neutrophils % (auto) 84.6 % (37.0-80.0); Platelet Count (auto) 282 10^3/uL (140-450); Red Blood Cells 4.09 10^6/uL (4.5-5.90); Red Cell Distribution Width 14.8 % (11.8-14.3); White Blood Cell 14.4 10^3/uL (4.4-10.8)
[2024-07-18 06:39] LABS: Calcium 9.5 mg/dL (8.7-10.4); Chloride 106 mmol/L (98-107); Potassium 4.5 mmol/L (3.5-5.1); Sodium 141 mmol/L (136-145)
[2024-07-18 06:40] LABS: Anion Gap 18 (5-15); Carbon Dioxide 17 mmol/L (20-31)
[2024-07-18 06:45] LABS: BUN/Creatinine Ratio 27.9 (10.0-20.0); Blood Urea Nitrogen 46 mg/dL (9-23); Glucose 355 mg/dL (74-106)
[2024-07-18] MEDS ORDERED: CEFP100T6 PO (11:10)
[2024-07-18] MEDS ORDERED: FURO40TA4 PO (11:10)
--- NOTE | 2024-07-18 13:12 | DVHDSRES ---
Discharge Summary Date of Admission Resident Creating Document: ITA ANDRADE RESIDENT Jul 15, 2024 at 10:10 Date of Discharge: Jul 18, 2024 Admitting Diagnosis Acute hypoxic respiratory failure associated with right lower extremity swelling. Wounds: No wounds present at this time. Labs/Diagnostic Data: Laboratory Results Test 07/18/24 11:12 07/18/24 05:19 07/15/24 10:55 07/15/24 06:55 POC Glucose 372 mg/dl (70-106) White Blood Count 14.4 10^3/uL (4.4-10.8) Red Blood Count 4.09 10^6/uL (4.5-5.90) Hemoglobin 12.6 g/dL (13.5-17.5) Hematocrit 38.3 % (41.0-53.0) Mean Corpuscular Volume 93.8 fL (80.0-100.0) Mean Corpuscular Hemoglobin 30.7 pg (28.0-32.0) Mean Corpuscular Hemoglobin Concent 32.8 g/dL (32.0-36.0) Red Cell Distribution Width 14.8 % (11.8-14.3) Platelet Count 282 10^3/uL (140-450) Mean Platelet Volume 9.2 fL (6.9-10.8) Neutrophils (%) (Auto) 84.6 % (37.0-80.0) Lymphocytes (%) (Auto) 6.2 % (10.0-50.0) Monocytes (%) (Auto) 9.1 % (0.0-12.0) Eosinophils (%) (Auto) 0.0 % (0.0-7.0) Basophils (%) (Auto) 0.1 % (0.0-2.0) Neutrophils # (Auto) 12.2 10 ^3/uL (1.6-8.6) Lymphocytes # (Auto) 0.9 10 ^3/uL (0.4-5.4) Monocytes # (Auto) 1.3 10 ^3/uL (0-1.3) Eosinophils # (Auto) 0 10 ^3/uL (0-0.8) Basophils # (Auto) 0 10 ^3/uL (0-0.2) Nucleated Red Blood Cells 0.0 % Sodium Level 141 mmol/L (136-145) Potassium Level 4.5 mmol/L (3.5-5.1) Chloride Level 106 mmol/L (98-107) Carbon Dioxide Level 17 mmol/L (20-31) Anion Gap 18 (5-15) Blood Urea Nitrogen 46 mg/dL (9-23) Creatinine 1.65 mg/dL (0.700-1.30) Glomerular Filtration Rate Calc 46 mL/min (>90) BUN/Creatinine Ratio 27.9 (10.0-20.0) Serum Glucose 355 mg/dL (74-106) Calcium Level 9.5 mg/dL (8.7-10.4) Phosphorus Level 3.4 mg/dL (2.4-5.1) Magnesium Level 2.5 mg/dL (1.6-2.6) B-Type Natriuretic Peptide 163.38 pg/mL (0-100) Urine Color Colorless (Yellow) Urine Clarity Turbid (Clear) Urine pH 5.5 (5.0-9.0) Urine Specific [place] 1.016 (1.001-1.035) Urine Protein 2+ (Negative) Urine Ketones Negative (Negative) Urine Blood Negative /uL (Negative) Urine Nitrite Negative (Negative) Urine Bilirubin Negative (Negative) Urine Urobilinogen Normal mg/dL (Negative) Urine Leukocyte Esterase 2+ /uL (Negative) Urine RBC 3 /hpf (0 - 3) Urine WBC 36 /hpf (0 - 3) Urine Squamous Epithelial Cells Few /hpf (<5) Urine Bacteria Few /hpf (None Seen) Urine Glucose 3+ mg/dL (Normal) Test 07/15/24 04:58 07/15/24 01:52 Troponin I High Sensitivity 27 ng/L (</=54) Prothrombin Time 10.6 sec (9.3-11.8) Prothrombin Time INR 1.00 (0.9-1.15) Activated Partial Thromboplast Time 29.6 SEC (24.5-34.5) D-Dimer, Quantitative 0.78 mg/L FEU (0.0-0.49) Lactic Acid Level 1.5 mmol/L (0.4-2.0) Total Bilirubin 0.4 mg/dL (0.2-1.0) Aspartate Amino Transferase (AST) 40 U/L (13-40) Alanine Aminotransferase (ALT) 124 U/L (7-40) Alkaline Phosphatase 251 U/L (46-116) Total Protein 6.1 g/dL (5.7-8.2) Albumin 3.8 g/dL (3.2-4.8) Lipase 42 U/L (12-53) Other Laboratory Tests 07/18/24 05:19 Brief Hx & Hospital Course: This is a 64-year-old male with past medical history of hypertension, type 2 diabetes, hyperlipidemia, GERD, asthma, COPD, HI, history of stent placement in the bladder by Dr. Lofton, surgical history of left below-knee amputation and right toe amputation. The patient presented to the ED with chief complaint of shortness of breath, abdominal swelling and right lower extremity swelling. Patient states that he does not have any past medical history of CHF and last echocardiogram performed on 01/04 showed an LVEF of 55%. The patient stated that the abdomen and right lower extremity both were significantly swelling associated with shortness of breaths. The patient also reports significant testicular swelling for which testicular ultrasound was performed showing mild to moderate bilateral hydrocele. A right lower extremity arterial Doppler was performed showing 50-75% stenosis of right common femoral artery and 20-49% stenosis of right proximal and mid superficial femoral artery. Cardiology was consulted which recommended continuing medical therapy with aspirin and statins. We ordered a CT scan of the abdomen which showed mild bilateral pleural effusions but no ascites or abdominal masses at this time. Initial chest x-ray was grossly unremarkable and right lower extremity venous Doppler showed no evidence of DVT. UA came back positive suggesting UTI for which IV ceftriaxone was started. The patient was also started on furosemide 40 mg IV b.i.d. and was started on his home medications aspirin 81 mg q.d., atorvastatin 40 mg q.d. Today, the patient was evaluated at bedside and right lower extremity swelling has decreased considerably compared to admission but is still 1+ pitting edema. The patient denies shortness of breath, chest pain or any other acute complaints at this time. The patient is currently saturating 97% on room air. We ordered social service consult for home health with physical therapy. We will discharge the patient on cefpodoxime 100 mg b.i.d. for five days to complete treatment for UTI and furosemide 40 mg p.o. q.d. for 30 days to continue diuresis and decreasing lower extremity swelling. Patient agrees and understands the plan. ROS Constitutional: Denies weight loss, fever and chills. HEENT: Denies changes in vision and hearing. Respiratory: Denies shortness of breath and cough Cardiovascular: Denies chest discomfort or palpitations GI: Denies abdominal pain, nausea, vomiting and diarrhea. : Denies dysuria and urinary frequency. Musculoskeletal: Still reports mild swelling in the right lower extremity that has improved considerably compared to admission. Denies myalgias and joint pain Skin: Denies rash and pruritus. Neurological: Denies dizziness, headache, vision or hearing problems Physical Examination General: Patient alert and oriented in person, place and time. Patient following commands. HEENT: Normocephalic, atraumatic, moist mucous membranes Respiratory/pulmonary: Bilateral lung sounds grossly clear, there is mild decrease of breath sounds on bilateral lung bases. No crackles or wheezes at this time. Cardiovascular: Normal regular heart sounds S1 and S2 with no associated murmurs Abdomen: Abdomen mildly distended, there is minimal pain to palpation at the hypogastric region. no palpable masses. Extremities: There is 1+ pitting edema on right lower extremity. Patient has left below-knee amputation on left lower extremity. Skin: There is still slight erythema in the right lower extremity which has been chronic. No rashes or pruritus, there is no sacral edema present at this time. Neurological: Intact cranial nerves with no focal neurologic deficits Consults/Reason for consult Cardiology for CHF exacerbation and PAD Operations or Procedures Examination: ABPL CLINICAL INDICATION: diffuse belly pain and distention COMPARISON: None. CONTRAST USED: None. TECHNIQUE: A plain CT study of the abdomen and pelvis is performed. The examination was performed with 5 mm thin slices. Multiplanar reconstructions were obtained. CT scan was done according to ALARA (As Low As Reasonably Achievable). FINDINGS: CT ABDOMEN Lung bases: Mild bilateral pleural effusions. Significant emphysematous changes are seen in right lower lobe medially. Unenhanced Liver: The liver is normal in size. There is no intrahepatic biliary radicle dilatation. Gallbladder: The gallbladder is normal and reveals no intrinsic abnormality. The common bile duct is not dilated. Unenhanced Pancreas: The pancreas is normal in size and shape. No focal lesion is seen within. The peripancreatic fat-planes are normal. Spleen: The spleen is normal in size and does not show any focal abnormality. Retroperitoneum: Both adrenal glands are normal in size and morphology in this unenhanced CT scan. There is no significant retroperitoneal lymphadenopathy. The kidneys are normal in size, with no hydronephrosis or renal calculi. Vessels: Aorta, IVC and the mesenteric vessels cannot be commented in this unenhanced CT scan. Stomach and bowel: The bowel loops are unremarkable. There is no ascites. Skeletal system: Degenerative changes are seen involving the spine, in the form of marginal osteophytes. Levoscoliosis. Degenerative osteoarthritis involving both hip joints. CT PELVIS Appendix: The appendix is unremarkable in appearance. Small umbilical hernia is seen, containing fat. Colon: The ascending, transverse, descending, sigmoid colon and rectum are unremarkable. Bladder: The urinary bladder is unremarkable. The prostate is normal in size with foci of calcifications. No abnormal fluid collection is seen. No pelvic lymphadenopathy is identified. Moderate abdominal wall edema is seen. IMPRESSION: 1. Mild bilateral pleural effusions. 2. Significant emphysematous changes are seen in right lower lobe medially. 3. No abdominal mass or adenopathy. 4. No ascites. 5. No free air or inflammatory changes. 6. Additional chronic and/or ancillary findings as detailed above. Examination: CXRP CLINICAL INDICATION: SOB Comparison: None. Technique: Frontal radiograph of the chest was obtained. Findings: Lungs are clear and well expanded, with no pulmonary infiltrate or pleural effusion. There is no pneumothorax. The cardiomediastinal silhouette is within normal limits. No acute osseous abnormality is seen. Impression: No acute cardiopulmonary disease is seen. Clinical History: eval for dvt Comparison: None Technique: Duplex Doppler evaluation of the deep venous system of the lower extremity from the common femoral vein to the popliteal vein including color Doppler and spectral/pulsed waveform analysis was performed. Findings: The common femoral vein demonstrates appropriate compressibility and waveform variability. There is compressibility/patency of the great saphenous vein at the proximal thigh. The femoral vein demonstrates appropriate compressibility and waveform variability. The deep femoral vein demonstrates appropriate compressibility and waveform variability. The popliteal vein demonstrates appropriate compressibility and waveform variability. There is color flow in the tibioperoneal trunk and posterior tibial vein. Moderate right lower extremity subcutaneous edema noted. Impression: 1. No deep venous thrombosis in the right lower extremity. If clinical concern/symptoms persist or worsen, short-interval follow-up study is suggested. 2. Moderate subcutaneous edema. ULTRASOUND OF SCROTUM AND CONTENTS. INDICATION: Testicular pain and swelling. COMPARISON: None TECHNIQUE: Multiple real-time grayscale sonographic and color and duplex Doppler images of the scrotum and its contents were obtained. FINDINGS: The right testicle measures 3.9 x 2.9 x 1.9 cm. The left testicle measures 3.5 x 2.5 x 2.3 cm. Both testicles demonstrate homogeneous echotexture without evidence of focal lesions. The right epididymis measures 2.2 cm. The left epididymis measures 2.1 cm. Subsequent color and duplex Doppler interrogation of the testes demonstrated symmetric normal vascular flow to both testicles. No focal areas of hyperemia were seen. Small to moderate bilateral hydrocele. IMPRESSION: Small to moderate bilateral hydrocele. Right Lower Extremity Arterial Duplex Clinical History: RT LEG SWELLING Comparison: None Technique: Duplex Doppler evaluation including color Doppler and spectral/pulsed waveform analysis of the lower extremity arteries was performed. Findings: RIGHT: Peak systolic velocities are as follows: SNOWBOARD INSTRUCTOR 202 cm/s Deep femoral 130 cm/s SFA proximal 195 cm/s SFA mid-portion 179 cm/s SFA distal 119 cm/s Popliteal 119 cm/s Posterior tibial 101 cm/s Anterior tibial 96 cm/s Peroneal nonvisualized cm/s Dorsalis pedis 79 cm/s The waveforms are monophasic with diastolic flow. IMPRESSION: 50-75% stenosis of the right common femoral artery based on peak systolic velocity criteria. 20-49% stenosis of the right proximal and mid superficial femoral artery based on peak systolic velocity criteria. Monophasic waveforms in the right dorsalis pedis is suggestive of underlying peripheral arterial disease. INDICATION: eval for pe TECHNIQUE: Multidetector CTA of the chest was performed of the chest with 100 cc of intravenous contrast. PULMONARY ANGIOGRAPHY PROTOCOL was utilized using a bolus-tracking technique centered on the main pulmonary artery. Axial, coronal and sagittal multiplanar and MIP reformats were performed. Radiation Dose Information: CT Dose: CTDI volume is 25 mGy. Dose-length product is 250 mGy*cm The dose indicators for CT are the volume Computed Tomography (CT) Dose Index (CTDIvol) and the Dose Length Product (DLP), and are measured in units of mGy and mGy-cm, respectively. These indicators are not patient dose, but values generated from the CT scanner acquisition factors. The report includes radiation exposure data for exposures received during this examination. Findings: Pulmonary artery: Normal caliber of the pulmonary artery. No large central or large segmental pulmonary embolism. Lower neck: Normal thyroid. Lungs: No focal consolidation, pulmonary mass, or suspicious pulmonary nodule. Heart/Vascular Structures: Normal heart size. Normal caliber and enhancement of the aorta. Lymph Nodes: No adenopathy Pleura: Trace bilateral pleural effusions. Musculoskeletal: No acute osseous abnormality. Upper abdomen: Limited portions of the upper abdomen are unremarkable. IMPRESSION: 1. No pulmonary embolism. 2. Cardiomegaly with CHF. Trace bilateral pleural effusions. Condition at Discharge: Stable Final Diagnosis/Problems List Acute hypoxic respiratory failure likely due to acute on chronic diastolic heart failure Acute on chronic systolic/diastolic heart failure UTI Right lower extremity swelling, ruled out DVT Peripheral artery disease BPH Primary hypertension GERD Discharge Disposition: Home with Health Services Discharge Instruct/Medications Diet: Cardiac 2g Na,low cholest Activity: No Restrictions, As Tolerated Follow Up/Referral: F/U with his PCP in 1 week Medications: Cefpodoxime 100 mgBID for 5 days Furosemide 40mg po QD FOR 30 DAYS Discharge Statement: "Patient was advised to return to the ER or call 911 if any headaches, dizziness, shortness of breath, chest pain, abdominal pain, bleeding, fevers, or worsening of medical condition. Patient was counseled about treatment plan, medications, possible side effects, patientverbalized understanding. All questions were answered to the best of my ability. This discharge took greater then 30 minutes in planning, reviewing documentation, counseling the patient, and discussing with other team members." ASSESSMENT ASSESSMENT Assessment Acute hypoxic respiratory failure likely due to acute on chronic diastolic heart failure Acute on chronic systolic/diastolic heart failure UTI Right lower extremity swelling, ruled out DVT Peripheral artery disease BPH Primary hypertension GERD Date of Service: Jul 18, 2024 Billing Provider: LOLIS IGNACIO MD Common Visit Codes: 55362-WES/OBS DISCH DAY >30min ITA ANDRADE RESIDENT Jul 18, 2024 13:12 LOLIS IGNACIO MD Jul 18, 2024 19:07
[2024-07-18] MEDS ORDERED: NYSTATIN TOPICAL CREAM 15GM TOP SCH (22:00)
[2024-07-18] MEDS ORDERED: TRIAMCINOLONE ACET 0.1% TOPICAL CREAM 15GM TOP SCH (22:00)
== END 2024-07-18 17:10 | disposition home health service (06) | DRG 291 ==
LOC: ER 01:25 → EDBD 01:25 → TELE 10:10 → TELE-WESTW 12:32
PROVIDERS: ADMIT Internal Medicine Geriatric Medicine; ATTEND Internal Medicine Geriatric Medicine
DX: I13.0 Hypertensive heart and chronic kidney disease with heart failure and stage 1 through stage 4 chronic kidney disease, or unspecified chronic kidney disease (principal); I50.43 Acute on chronic combined systolic (congestive) and diastolic (congestive) heart failure; J96.01 Acute respiratory failure with hypoxia; N17.0 Acute kidney failure with tubular necrosis; J44.1 Chronic obstructive pulmonary disease with (acute) exacerbation; L03.314 Cellulitis of groin; J45.901 Unspecified asthma with (acute) exacerbation; N39.0 Urinary tract infection, site not specified; B35.6 Tinea cruris; E11.621 Type 2 diabetes mellitus with foot ulcer; E78.5 Hyperlipidemia, unspecified; E87.5 Hyperkalemia; I25.10 Atherosclerotic heart disease of native coronary artery without angina pectoris; K21.9 Gastro-esophageal reflux disease without esophagitis; L97.519 Non-pressure chronic ulcer of other part of right foot with unspecified severity; R74.01 Elevation of levels of liver transaminase levels; E11.51 Type 2 diabetes mellitus with diabetic peripheral angiopathy without gangrene; N18.9 Chronic kidney disease, unspecified; E11.22 Type 2 diabetes mellitus with diabetic chronic kidney disease; E66.01 Morbid (severe) obesity due to excess calories; N40.0 Benign prostatic hyperplasia without lower urinary tract symptoms; Z89.512 Acquired absence of left leg below knee; I25.2 Old myocardial infarction; Z89.421 Acquired absence of other right toe(s); Z88.0 Allergy status to penicillin; Z88.1 Allergy status to other antibiotic agents; Z82.5 Family history of asthma and other chronic lower respiratory diseases; Z82.49 Family history of ischemic heart disease and other diseases of the circulatory system; Z79.82 Long term (current) use of aspirin; Z68.35 Body mass index [BMI] 35.0-35.9, adult; Z88.7 Allergy status to serum and vaccine; I16.0 Hypertensive urgency
CPT/HCPCS: 36415; 71045; 71275; 74176; 76870; 80048; 80053; 81001; 82962; 83605; 83690; 83735; 83880; 84100; 84484; 85025; 85379; 85610; 85730; 87086; 93005; 93926; 93971; 94640; 97163; G0378; J1100; J1815; J2405; J2470; J3490; J7060

== ENCOUNTER → 2024-09-11 | Outpatient (CLI) | payer MEDICARE ==
[~2024-09-11] MED LIST changes: +CEFP100T6 PO; -CEFP200T15 PO; +FURO40TA4 PO; -LINE1TAB6 PO; -LISI-275 PO
== END | disposition home or self-care (01) ==
LOC: LAB 12:22
PROVIDERS: ATTEND Urology
DX: N40.1 Benign prostatic hyperplasia with lower urinary tract symptoms (principal)
CPT/HCPCS: 84153

== ENCOUNTER 2025-03-28 11:45 | Outpatient (CLI) | payer OTHER ==
[2025-03-28 12:21] LABS: Hematocrit 41.8 % (41.0-53.0); Hemoglobin 14.0 g/dL (13.5-17.5); Mean Corpuscular Hemoglobin 30.6 pg (28.0-32.0); Mean Corpuscular Volume 91.3 fL (80.0-100.0); Nucleated Red Blood Cells % 0.0 %
[2025-03-28 12:49] LABS: Alanine Aminotransferase 26 U/L (7-40); Albumin 4.1 g/dL (3.2-4.8); Anion Gap 9 (5-15); BUN/Creatinine Ratio 25.0 (10.0-20.0); Calcium 9.9 mg/dL (8.7-10.4); Carbon Dioxide 26 mmol/L (20-31); Sodium 144 mmol/L (136-145); Total Protein 6.5 g/dL (5.7-8.2); Triglycerides 73 mg/dL (< 150)
[2025-03-28 12:50] LABS: Alkaline Phosphatase 130 U/L (46-116); Bilirubin, Total 0.5 mg/dL (0.2-1.0); Blood Urea Nitrogen 34 mg/dL (9-23); Chloride 109 mmol/L (98-107); Cholesterol 109 mg/dL (< 200); Glucose 164 mg/dL (74-106); HDL Cholesterol 35 mg/dL (40-59); Potassium 5.2 mmol/L (3.5-5.1)
== END 2025-03-28 17:00 | disposition home or self-care (01) ==
LOC: LAB 11:45
PROVIDERS: ATTEND Student in an Organized Health Care Education/Training Program
DX: N40.1 Benign prostatic hyperplasia with lower urinary tract symptoms (principal); E11.9 Type 2 diabetes mellitus without complications; E78.5 Hyperlipidemia, unspecified; I11.0 Hypertensive heart disease with heart failure; I50.9 Heart failure, unspecified; Z12.11 Encounter for screening for malignant neoplasm of colon
CPT/HCPCS: 36415; 80053; 80061; 83036; 83880; 84153; 84443; 85025

== ENCOUNTER 2025-05-03 15:14 | Inpatient (IN) | payer OTHER ==
[~2025-05-03] VITALS: Ht 190.5 cm; Wt 115.2 kg
--- NOTE | 2025-05-03 16:23 | DVH ---
CHEST RADIOGRAPH Indication: cough Technique: Single frontal view of the chest was obtained Comparison: CT CT ANGIO CHEST CONTRAST on DOS: 07/15/24, XY CHEST PORTABLE on DOS: 07/15/24, XY CHEST P ORTABLE on DOS: 12/20/23 FINDINGS: Lines and Tubes: None Lungs: Resolved pulmonary vascular congestion Pleura: No effusion. No pneumothorax. Cardiomediastinal contours: Slightly improved cardiomegaly Bones: No acute osseous abnormality. IMPRESSION: 1. 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
[2025-05-03 16:38] LABS: Hematocrit 41.8 % (41.0-53.0); Hemoglobin 13.9 g/dL (13.5-17.5); Mean Corpuscular Hemoglobin 30.3 pg (28.0-32.0); Mean Corpuscular Volume 91.1 fL (80.0-100.0); Nucleated Red Blood Cells % 0.0 %
[2025-05-03 16:42] LABS: Chloride 101 mmol/L (98-107); Potassium 4.1 mmol/L (3.5-5.1); Sodium 138 mmol/L (136-145)
[2025-05-03 16:43] LABS: Anion Gap 14 (5-15); Calcium 9.3 mg/dL (8.7-10.4); Carbon Dioxide 23 mmol/L (20-31)
[2025-05-03 16:48] LABS: BUN/Creatinine Ratio 14.5 (10.0-20.0); Blood Urea Nitrogen 21 mg/dL (9-23)
[2025-05-03 16:49] LABS: Glucose 306 mg/dL (74-106)
--- NOTE | 2025-05-03 17:45 | ED.PDOC ---
History of Present Illness HPI Comments 65-year-old male with a history of CHF, COPD, diabetes, hypertension, dyslipidemia, GERD, mi, peripheral arterial disease and BPH brought in by family complaining of hematuria, diffuse abdominal pain, nausea and vomiting for the past 5 days, associated with fever. Patient also notes shortness of breath and fatigue with very minimal exertion such as transferring from his wheelchair to commode. He denies any cough, chest pain or congestion. He does have chronic lower extremity edema, which he states has been stable. Chief Complaint: Flu like Time Seen by MD: 15:22 Primary Care Provider: Pedro Reviewed Notes: Medications, Allergies Allergies: Coded Allergies: Ciprofloxacin (Verified Allergy, Unknown, 04/13/19) Influenza Vaccines (Verified Allergy, Unknown, 04/13/19) Penicillins (Verified Allergy, Unknown, 04/13/19) Sulfa Antibiotics (Unverified Allergy, Unknown, 09/27/23) Home Meds Active Scripts Furosemide (Furosemide) 40 Mg Tab, 1 TAB PO DAILY for 30 Days, #30 TAB 5 Refills Prov:ITA ANDRADE RESIDENT 07/18/24 Cefpodoxime Proxetil (Cefpodoxime Proxetil) 100 Mg Tab, 100 MG PO BID for 5 Days, #10 TAB Prov:ITA ANDRADE RESIDENT 07/18/24 Oxybutynin Chloride (Ditropan Xl) 5 Mg Tab, 5 MG PO BID, #30 TAB Prov:ASUNCION DERAS 10/30/22 Tamsulosin Hcl (Flomax) 0.4 Mg Cap, 1 CAP PO DAILY, #30 CAP 11 Refills Prov:ASUNCION DERAS 10/28/22 Tolterodine Tartrate (Tolterodine Tartrate ER) 2 Mg Cap, 2 MG PO BID for 30 Days, #30 CAP Prov:ELISHA GARCIA MD 06/29/22 Finasteride (Finasteride) 5 Mg Tab, 5 MG PO DAILY for 30 Days, #30 TAB 3 Refills Prov:ELISHA GARCIA MD 06/23/22 Reported Medications Baclofen (Baclofen) 10 Mg Tab, 1 TAB PO BID for 90 Days, #180 07/17/24 Gabapentin (Gabapentin) 300 Mg Cap, 1 CAP PO BID PRN for LOW BACK PAIN for 30 Days, #60 07/17/24 Atorvastatin Calcium (Lipitor) 20 Mg Tab, 1 TAB PO HS for 90 Days, #90 07/17/24 Diclofenac Sodium (Diclofenac Sodium Ec) 50 Mg Tab, 1 TAB PO BID PRN for PAIN for 30 Days, #60 07/17/24 Lisinopril (Lisinopril) 10 Mg Tab, 1 TAB PO DAILY for 90 Days, #90 07/17/24 Insulin Isophane & Reg (Human) (Humulin 70/30 (70-30) 100 Unit/ml) 1 Units/0.01 Ml Inj, UNIT SC UD for 37 Days, #30 Inject 35 units subcutaneously in the morning and 50 units subcutaneously in the evening. 12/16/23 Information Source: Patient Mode of Arrival: EMS Severity: Moderate Timing: Days Duration: Since onset Prehospital treatment: [employer] Past Medical History PAST MEDICAL HISTORY: Asthma, CHF, COPD, DM, GERD, High Lipids, HTN, UT, UTI'S Past Medical History (Other): BPH Surgical History: BKA Surgical History (Other): Urinary stent placement Family History Family History: Reviewed,noncontributory to illness Social History Smoker: Non-Smoker Alcohol: Denies ETOH Use Drugs: Marijuana Lives In: Home All Other Systems: Reviewed and Negative (Comprehensive systems review obtained and negative except for what is stated in the HPI.) Physical Exam General Appearance: Moderate Distress, Obese HEENT: Other (Pupils and face symmetric. Moist mucous membranes.) Neck: Full Range of Motion, Normal Inspection Respiratory: Lungs Clear, No Accessory Muscle Use, No Respiratory Distress, Normal Breath Sounds Cardiovascular: No JVD, Regular Rate/Rhythm Breast Exam: Deferred Gastrointestinal: Diffuse, Distended, Soft, Tenderness Genitalia: Deferred Pelvic: Deferred Rectal: Deferred Extremities: Leg edema, Normal inspection, Normal range of motion, Non-tender, Pedal edema Neurologic: Alert (Oriented x4), Normal Affect, Normal Mood, Other (No gross focal deficit) Cerebellar Function: NOT DONE Reflexes: NOT DONE Skin: Dry, Warm, Other (Right lower extremity erythema and 2+ pitting edema) Lymphatic: NOT DONE Was a procedure done? Was a procedure done?: No Differential Dx Considerations may include: UTI, kidney stone, HELIO, renal failure, electrolyte imbalance, enteritis, colitis, diverticular disease, viral syndrome, sepsis, CHF exacerbation, among others X-Ray, Labs, Meds, VS Vital Signs Date Time Temp Pulse Resp B/P (MAP) Pulse Ox O2 Delivery O2 Flow Rate FiO2 05/03/25 22:52 98 16 142/70 05/03/25 22:45 98.8 98 16 142/70 (94) 96 98.8 05/03/25 22:45 98 16 96 Room Air 05/03/25 15:40 98.8 97 18 130/78 96 98.8 Lab Test 05/03/25 21:14 05/03/25 21:12 05/03/25 19:50 05/03/25 17:50 Range/Units Urine Color Yellow Yellow Urine Clarity Clear Clear Urine pH 5.0 5.0-9.0 Urine Specific [place] 1.015 1.001-1.035 Urine Protein 1+ H Negative Urine Ketones 1+ H Negative Urine Blood Negative Negative /uL Urine Nitrite Negative Negative Urine Bilirubin Negative Negative Urine Urobilinogen Normal Negative mg/dL Urine Leukocyte Esterase Negative Negative /uL Urine RBC 11 0 - 3 /hpf Urine Microscopic WBC 7 H 0-3 /HPF Urine Squamous Epithelial Cells Few <5 /hpf Urine Bacteria None seen None Seen /hpf Urine Hyaline Casts Mod 0 - 2 /lpf Urine Mucus Few None Seen Urine Glucose 2+ H Normal mg/dL Influenza Type A Antigen Negative Negative Influenza Type B Antigen Negative Negative SARS-CoV-2 Antigen (Rapid) Negative NEGATIVE Troponin I High Sensitivity 15 15 </=54 ng/L Test 05/03/25 16:24 Range/Units White Blood Count 12.8 H 4.4-10.8 10^3/uL Red Blood Count 4.59 4.5-5.90 10^6/uL Hemoglobin 13.9 13.5-17.5 g/dL Hematocrit 41.8 41.0-53.0 % Mean Corpuscular Volume 91.1 80.0-100.0 fL Mean Corpuscular Hemoglobin 30.3 28.0-32.0 pg Mean Corpuscular Hemoglobin Concent 33.3 32.0-36.0 g/dL Red Cell Distribution Width 14.7 H 11.8-14.3 % Platelet Count 213 140-450 10^3/uL Mean Platelet Volume 9.4 6.9-10.8 fL Neutrophils (%) (Auto) 78.1 37.0-80.0 % Lymphocytes (%) (Auto) 6.3 L 10.0-50.0 % Monocytes (%) (Auto) 12.0 0.0-12.0 % Eosinophils (%) (Auto) 3.3 0.0-7.0 % Basophils (%) (Auto) 0.3 0.0-2.0 % Neutrophils # (Auto) 10.0 H 1.6-8.6 10 ^3/uL Lymphocytes # (Auto) 0.8 0.4-5.4 10 ^3/uL Monocytes # (Auto) 1.5 H 0-1.3 10 ^3/uL Eosinophils # (Auto) 0.4 0-0.8 10 ^3/uL Basophils # (Auto) 0 0-0.2 10 ^3/uL Nucleated Red Blood Cells 0.0 % Sodium Level 138 136-145 mmol/L Potassium Level 4.1 3.5-5.1 mmol/L Chloride Level 101 98-107 mmol/L Carbon Dioxide Level 23 20-31 mmol/L Anion Gap 14 5-15 Blood Urea Nitrogen 21 9-23 mg/dL Creatinine 1.45 H 0.700-1.30 mg/dL Glomerular Filtration Rate Calc 53 >90 mL/min BUN/Creatinine Ratio 14.5 10.0-20.0 Serum Glucose 306 H 74-106 mg/dL Lactic Acid Level 1.2 0.4-2.0 mmol/L Calcium Level 9.3 8.7-10.4 mg/dL Troponin I High Sensitivity 13 </=54 ng/L B-Type Natriuretic Peptide 135.81 0-100 pg/mL Current Medications Medications (Trade) Dose Ordered Sig/Cortez Route Start Time Stop Time Status Last Admin Morphine Sulfate 4 mg ONCE ONCE IV 05/03/25 22:00 05/03/25 22:01 DC 05/03/25 22:52 Ondansetron HCl (Zofran) 4 mg ONCE ONCE IV 05/03/25 22:00 05/03/25 22:01 DC 05/03/25 22:51 Cefepime HCl 50 ml @ 50 mls/hr ONCE ONCE IV 05/03/25 22:00 05/03/25 22:59 DC 05/03/25 22:51 PROCEDURE(s): CXRP - CHEST PORTABLE REASON: cough ORDER NUMBER(s): [id number], ACCESSION NUMBER(s): [id number] CHEST RADIOGRAPH Indication: cough Technique: Single frontal view of the chest was obtained Comparison: CT CT ANGIO CHEST CONTRAST on DOS: 07/15/24, XY CHEST PORTABLE on DOS: 07/15/24, XY CHEST PORTABLE on DOS: 12/20/23 FINDINGS: Lines and Tubes: None Lungs: Resolved pulmonary vascular congestion Pleura: No effusion. No pneumothorax. Cardiomediastinal contours: Slightly improved cardiomegaly Bones: No acute osseous abnormality. IMPRESSION: 1. [employer] mild cardiomegaly. EDURE(s): ABPL - CT AB PEL WO CON-NO ORAL OR IV REASON: abd pain fever hematuria ORDER NUMBER(s): [id number], ACCESSION NUMBER(s): [id number] Exam: CT CT AB PEL WO CON-NO ORAL OR IV History: abd pain fever hematuria Comparison Study: CT CT AB PEL WO CON-NO ORAL OR IV on DOS: 07/15/24, CT CT AB PEL WO CON-NO ORAL OR IV on DOS: 12/16/23, CT ABD PELVIS WO CONTRAST on DOS: 06/18/22 TECHNIQUE: Multidetector CT of the abdomen and pelvis was performed from lung bases to pubic symphysis. Imaging was performed without IV contrast. Axial, coronal, and sagittal multiplanar reformats were obtained from the axial data set by the technologist. RADIATION DOSE: CTDI vol 96.96 mGy. DLP 1536.82 mGy.cm Findings: Limited evaluation of the solid organs in the absence of IV contrast. Evaluation is also degraded by motion artifact. Liver: Unremarkable. Spleen: Unremarkable. Pancreas: Unremarkable. Gallbladder: Unremarkable. Adrenals: Unremarkable Kidneys: Unremarkable. Pelvic Viscera: Unremarkable. Vasculature: Mild atherosclerotic aortoiliac calcifications. Retroperitoneum: Unremarkable. Bowel: No bowel obstruction. Appendix is normal. Musculoskeletal: Unremarkable. Soft tissues: Mild subcutaneous edema. Lungs: Emphysema. Scattered tree-in-bud nodularity. Impression: 1. No acute abdominopelvic abnormality identified. 2. Scattered tree-in-bud nodularity in the lung bases may reflect inflammatory small airways disease in the appropriate clinical setting. 3. Additional findings as detailed. X-Ray, Labs, Meds, VS Comment 65-year-old male with a history of CHF, COPD, diabetes, hypertension, dyslipidemia, GERD, mi, peripheral arterial disease and BPH brought in by family complaining of hematuria, diffuse abdominal pain, nausea and vomiting for the past 5 days, associated with fever. Vitals unremarkable Exam remarkable for diffuse abdominal tenderness and distention, right leg vicky thema and edema Rhythm strip independently interpreted by me: Sinus rhythm, rate 97, no ectopy. Chest x-ray cardiomegaly CT abdomen and pelvis Impression: 1. No acute abdominopelvic abnormality identified. 2. Scattered tree-in-bud nodularity in the lung bases may reflect inflammatory small airways disease in the appropriate clinical setting. 3. Additional findings as detailed. CBC remarkable for WBC 12.8, metabolic panel remarkable for creatinine 1.45, glucose 306, normal anion gap, troponin negative x3, BNP 135.81, UA abnormal consistent with UTI, lactic normal, influenza and COVID negative Patient treated with the following in the ED: Morphine 4 mg IV, Zofran 4 mg IV, cefepime 2 g IV On re-evaluation, pain is improving. Vitals were stable Plan is to admit the patient for pain and emesis control, glucose correction and IV antibiotics Time of 1ST Reevaluation: 18:16 Reevaluation 1ST: Unchanged Patient Education/Counseling: Diagnosis, Treatment Family Education/Counseling: Diagnosis, Treatment SEPSIS Sepsis Screen Date sepsis recognized/suspect: May 03, 2025 Time Sepsis recognized/suspect: 1520 Recent Procedure: No On Antibiotic Therapy: No Respiratory Rate >20: No Heart Rate >90: Yes Temp<36 C (96.8 F) or >38.3 C: No SBP <90 or MAP <65 mmHG: No New Acute Mental Status Change: No Is the patient on CPAP, BIPAP,: No SEPSIS EXCLUSION NOTE: 30 cc/kilogram fluid bolus was not administered due to the patient's history of CHF and presence of edema. Aggressive fluid hydration could cause harm. Physician Orders Chest Portable (05/03/25 15:44) Electrocardigram (05/03/25 15:44) Blood Culture (05/03/25 15:44) Ct Ab Pel Wo Con-No Oral Or Iv (05/03/25 21:45) Vital Signs Date Time Temp Pulse Resp B/P (MAP) Pulse Ox O2 Delivery O2 Flow Rate FiO2 05/03/25 22:52 98 16 142/70 05/03/25 22:45 98.8 98 16 142/70 (94) 96 98.8 05/03/25 22:45 98 16 96 Room Air 05/03/25 15:40 98.8 97 18 130/78 96 98.8 Laboratory Tests Test 05/03/25 16:24 Lactic Acid Level 1.2 mmol/L (0.4-2.0) White Blood Count 12.8 10^3/uL (4.4-10.8) H Medications Medications Dose Ordered Sig/Cortez Route Start Time Stop Time Status Last Admin Dose Admin Cefepime HCl 50 ml @ 50 mls/hr ONCE ONCE IV 05/03/25 22:00 05/03/25 22:59 DC 05/03/25 22:51 Morphine Sulfate 4 mg ONCE ONCE IV 05/03/25 22:00 05/03/25 22:01 DC 05/03/25 22:52 Ondansetron HCl 4 mg ONCE ONCE IV 05/03/25 22:00 05/03/25 22:01 DC 05/03/25 22:51 Reassessment Post Fluid SEPSIS FOCUS EXAM(REASSESSMENT Sepsis reassessment focused exam completed. Date: 05/03/25 Time 22:15 Departure 1 Departure Time of Disposition: 18:30 Impression: Primary Impression: Hematuria Additional Impressions: Abdominal pain Nausea and vomiting Hyperglycemia Sepsis UTI (urinary tract infection) Disposition: 09 ADMITTED INPATIENT Admit to: [facility] Condition: Guarded Critical Care Note Critical Care Time?: Yes (35 min-critical care time only) Critical care comment: Critical care time including multiple bedside re-evaluations, review of lab and imaging studies, and discussion of the case with the admitting provider. Patient is high risk for metabolic and/or hemodynamic decompensation. Stability Stability form required: No Heart Score Heart Score: Heart Score Response (Comments) Value History N/A 0 EKG N/A 0 Age N/A 0 Risk Factors N/A 0 Troponin N/A 0 Total 0 I personally scribed for KING BARTON MD ([email or web address]) on 05/03/25 at 17:50. Electronically submitted by [place] Israel ([email or web address]). KING BARTON MD May 03, 2025 17:45
[2025-05-03 22:37] LABS: COVID19 ANTIGEN SOFIA FIA NEGATIVE (NEGATIVE)
--- NOTE | 2025-05-03 22:45 | DVH ---
Exam: CT CT AB PEL WO CON-NO ORAL OR IV History: abd pain fever hematuria Comparison Study: CT CT AB PEL WO CON-NO ORAL OR IV on DOS: 07/15/24, CT CT AB PEL WO CON-NO ORAL OR I V on DOS: 12/16/23, CT ABD PELVIS WO CONTRAST on DOS: 06/18/22 TECHNIQUE: Multidetector CT of the abdomen and pelvis was performed from lung bases to pubic symphysi s. Imaging was performed without IV contrast. Axial, coronal, and sagittal multiplanar reformats were obtained from the axial data set by the technologist. RADIATION DOSE: CTDI vol 96.96 mGy. DLP 1536.82 mGy.cm Findings: Limited evaluation of the solid organs in the absence of IV contrast. Evaluation is also degraded by motion artifact. Liver: Unremarkable. Spleen: Unremarkable. Pancreas: Unremarkable. Gallbladder: Unremarkable. Adrenals: Unremarkable Kidneys: Unremarkable. Pelvic Viscera: Unremarkable. Vasculature: Mild atherosclerotic aortoiliac calcifications. Retroperitoneum: Unremarkable. Bowel: No bowel obstruction. Appendix is normal. Musculoskeletal: Unremarkable. Soft tissues: Mild subcutaneous edema. Lungs: Emphysema. Scattered tree-in-bud nodularity. Impression: 1. No acute abdominopelvic abnormality identified. 2. Scattered tree-in-bud nodularity in the lung bases may reflect inflammatory small airways disease in the appropriate clinical setting. 3. Additional findings as detailed.
[2025-05-03] MEDS: ONDANSETRON HCL 4 MG/2 ML VIAL IV ONE (22:51)
[2025-05-03] MEDS: CEFEPIME 2GM/50ML NS 50 ML IV ONE (22:51)
[2025-05-03] MEDS: MORPHINE SULFATE 4 MG/ML SYR/VIAL IV ONE (22:52)
[2025-05-03 23:01] LABS: Urine Protein, UAD 1+ (Negative)
[2025-05-04] MEDS ORDERED: DEXTROSE (50%) 50ML SYRG IV PRN (01:15)
[2025-05-04] MEDS ORDERED: ACETAMINOPHEN 325 MG TAB PO PRN (01:15)
[2025-05-04] MEDS: SODIUM CHLORIDE 0.9% 1,000 ML IV SCH (03:45)
--- NOTE | 2025-05-04 04:11 | DVHHP2 ---
History of Present Illness History of Present Illness This is a 65-year-old male with PMHx medical history including congestive heart failure (CHF), chronic obstructive pulmonary disease (COPD), diabetes mellitus, hypertension, dyslipidemia, gastroesophageal reflux disease (GERD), myocardial infarction (WA), peripheral arterial disease (PAD), and benign prostatic hyperplasia (BPH), who presents to the Emergency Department with complaints of hematuria for 5 days and diffuse abdominal pain which is 6/10, no aggravating or relieving factor, localized , intermittent associated with, fever, nausea, and vomiting same duration. Vomitus contained food material but not mixed with blood. The patient also reports shortness of breath and fatigue with minimal exertion, such as transferring from his wheelchair to the commode. He denies cough, chest pain, or congestion. He has chronic rt lower extremity edema, which he states has remained stable. PAST MEDICAL HISTORY: Asthma, CHF, COPD, DM, GERD, High Lipids, HTN, [place], UTI'S ,BPH Surgical History: LEFT BKA s/p prosthetic leg, right 5th toe amputation Urinary stent placement by Dr. Lofton. Family History: Reviewed,noncontributory to illness Social History Smoker: excess smoker and quit 20 years back, use marijuana occasionally Alcohol: Denies ETOH Use Lives In: Home PCP: Dr. Vasquez Allergy: ciprofloxacin, influenza vaccine, penicillin, sulfur Review of Systems Constitutional: Yes: Malaise, Other (Prostatic left leg); No: Fever, Chills, Sweats, Weakness Eyes: No: Pain, Vision change, Conjunctivae inflammation, Eyelid inflammation, Other, Redness ENT: No: Ear pain, Ear discharge, Nose pain, Nose discharge, Nose congestion, Mouth pain, Mouth swelling, Throat pain, Throat swelling, Other Respiratory: No: Cough, Dry, Shortness of breath, SOB with excertion, Wheezing, Hemoptysis, Pleuritic Pain, Sputum, Wheezing, Other Cardiovascular: No: Chest Pain, Palpitations, Orthopnea, Paroxysmal Noc. Dyspnea, Edema, Lt Headedness, Other Gastrointestinal: No: Nausea, Vomiting, Abdominal Pain, Diarrhea, Constipation, Melena, Hematochezia, Other Genitourinary: No Dysuria, No Frequency, No Incontinence, No Hematuria, No Retention, No Other Musculoskeletal: No: other, neck pain, shoulder pain, arm pain, back pain, hand pain, leg pain, foot pain Skin: Other (Right leg edema which is chronic); No: Rash, Lesions, Jaundice, Bruising Neurological: Other (Gait instability); No: Weakness, Numbness, Incoordination, Change in speech, Confusion, Seizures Allergies: Coded Allergies: Ciprofloxacin (Verified Allergy, Unknown, 04/13/19) Influenza Vaccines (Verified Allergy, Unknown, 04/13/19) Penicillins (Verified Allergy, Unknown, 04/13/19) Sulfa Antibiotics (Unverified Allergy, Unknown, 09/27/23) Medications Current Medications Medications Dose Ordered Sig/Cortez Route Start Time Stop Time Status Last Admin Dose Admin Sodium Chloride 1,000 ml @ 100 mls/hr Q10H IV 05/04/25 01:15 05/04/25 03:45 100 MLS/HR Acetaminophen 650 mg Q6HP PRN PO 05/04/25 01:15 Diagnostic Test (Pha) 1 strip ACHS 05/04/25 07:00 Insulin Human Regular HS SC 05/04/25 22:00 Insulin Human Regular AC SC 05/04/25 07:00 Dextrose 50 ml UD PRN IV 05/04/25 01:15 Exam Vital Signs Vital Signs Date Time Temp Pulse Resp B/P (MAP) Pulse Ox O2 Delivery O2 Flow Rate FiO2 05/03/25 22:52 98 16 142/70 05/03/25 22:45 98.8 96 98.8 05/03/25 22:45 Room Air General Appearance: Alert, Oriented X3, Cooperative, mild distress HEENT: Atraumatic, PERRLA, EOMI Respiratory: Clear to auscultation, Normal air movement Cardiovascular: Regular rate, Normal S1, Normal S2 Abdominal: Normal bowel sounds, Soft, Other (Tender on deep palpation) Extremities: No clubbing, Other (Right leg edema and left prosthetic leg) Skin: No breakdown Neuro: Normal speech, Strength at 5/5 X4 ext, Sensation intact Labs/Xrays Labs Test 05/03/25 21:14 05/03/25 21:12 05/03/25 19:50 05/03/25 16:24 Range/Units Urine Color Yellow Yellow Urine Clarity Clear Clear Urine pH 5.0 5.0-9.0 Urine Specific Wh[place] 1.015 1.001-1.035 Urine Protein 1+ H Negative Urine Ketones 1+ H Negative Urine Blood Negative Negative /uL Urine Nitrite Negative Negative Urine Bilirubin Negative Negative Urine Urobilinogen Normal Negative mg/dL Urine Leukocyte Esterase Negative Negative /uL Urine RBC 11 0 - 3 /hpf Urine Microscopic WBC 7 H 0-3 /HPF Urine Squamous Epithelial Cells Few <5 /hpf Urine Bacteria None seen None Seen /hpf Urine Hyaline Casts Mod 0 - 2 /lpf Urine Mucus Few None Seen Urine Glucose 2+ H Normal mg/dL Influenza Type A Antigen Negative Negative Influenza Type B Antigen Negative Negative SARS-CoV-2 Antigen (Rapid) Negative NEGATIVE Troponin I High Sensitivity 15 </=54 ng/L White Blood Count 12.8 H 4.4-10.8 10^3/uL Red Blood Count 4.59 4.5-5.90 10^6/uL Hemoglobin 13.9 13.5-17.5 g/dL Hematocrit 41.8 41.0-53.0 % Mean Corpuscular Volume 91.1 80.0-100.0 fL Mean Corpuscular Hemoglobin 30.3 28.0-32.0 pg Mean Corpuscular Hemoglobin Concent 33.3 32.0-36.0 g/dL Red Cell Distribution Width 14.7 H 11.8-14.3 % Platelet Count 213 140-450 10^3/uL Mean Platelet Volume 9.4 6.9-10.8 fL Neutrophils (%) (Auto) 78.1 37.0-80.0 % Lymphocytes (%) (Auto) 6.3 L 10.0-50.0 % Monocytes (%) (Auto) 12.0 0.0-12.0 % Eosinophils (%) (Auto) 3.3 0.0-7.0 % Basophils (%) (Auto) 0.3 0.0-2.0 % Neutrophils # (Auto) 10.0 H 1.6-8.6 10 ^3/uL Lymphocytes # (Auto) 0.8 0.4-5.4 10 ^3/uL Monocytes # (Auto) 1.5 H 0-1.3 10 ^3/uL Eosinophils # (Auto) 0.4 0-0.8 10 ^3/uL Basophils # (Auto) 0 0-0.2 10 ^3/uL Nucleated Red Blood Cells 0.0 % Sodium Level 138 136-145 mmol/L Potassium Level 4.1 3.5-5.1 mmol/L Chloride Level 101 98-107 mmol/L Carbon Dioxide Level 23 20-31 mmol/L Anion Gap 14 5-15 Blood Urea Nitrogen 21 9-23 mg/dL Creatinine 1.45 H 0.700-1.30 mg/dL Glomerular Filtration Rate Calc 53 >90 mL/min BUN/Creatinine Ratio 14.5 10.0-20.0 Serum Glucose 306 H 74-106 mg/dL Lactic Acid Level 1.2 0.4-2.0 mmol/L Calcium Level 9.3 8.7-10.4 mg/dL B-Type Natriuretic Peptide 135.81 0-100 pg/mL SEPSIS Sepsis Screen Date sepsis recognized/suspect: May 03, 2025 Time Sepsis recognized/suspect: 1519 Recent Procedure: No On Antibiotic Therapy: No Respiratory Rate >20: No Heart Rate >90: Yes Temp<36 C (96.8 F) or >38.3 C: No SBP <90 or MAP <65 mmHG: No New Acute Mental Status Change: No Is the patient on CPAP, BIPAP,: No Physician Orders Ct Ab Pel Wo Con-No Oral Or Iv (05/03/25 21:45) Admit (05/04/25 01:11) Code Status (05/04/25 01:11) Sodium Chloride 0.9% (05/04/25 01:15) Acetaminophen Tablet (Tylenol Tablet) (05/04/25 01:15) Notify Of Changes From Base (05/04/25 01:11) Glucose Blood (Accu-Chek Comfort Curve T (05/04/25 07:00) Insulin R (Human) (Insulin R) (05/04/25 22:00) Insulin R (Human) (Insulin R) (05/04/25 07:00) Dextrose 50% Syringe (05/04/25 01:15) Consistent Carb(Ccho)Diabetes (05/04/25 Breakfast) Sequential Compression Device (05/04/25 01:11) Complete Blood Count (05/04/25 04:00) Comprehensive Metabolic Panel (05/04/25 04:00) Vitamin B12 (05/04/25 04:00) Drug Screen (05/04/25 01:44) Vital Signs Date Time Temp Pulse Resp B/P (MAP) Pulse Ox O2 Delivery O2 Flow Rate FiO2 05/03/25 22:52 98 16 142/70 05/03/25 22:45 98.8 98 16 142/70 (94) 96 98.8 05/03/25 22:45 98 16 96 Room Air Laboratory Tests Test 05/03/25 16:24 Lactic Acid Level 1.2 mmol/L (0.4-2.0) White Blood Count 12.8 10^3/uL (4.4-10.8) H Medications Medications Dose Ordered Sig/Cortez Route Start Time Stop Time Status Last Admin Dose Admin Cefepime HCl 50 ml @ 50 mls/hr ONCE ONCE IV 05/03/25 22:00 05/03/25 22:59 DC 05/03/25 22:51 50 MLS/HR Morphine Sulfate 4 mg ONCE ONCE IV 05/03/25 22:00 05/03/25 22:01 DC 05/03/25 22:52 4 MG Ondansetron HCl 4 mg ONCE ONCE IV 05/03/25 22:00 05/03/25 22:01 DC 05/03/25 22:51 4 MG Sodium Chloride 1,000 ml @ 100 mls/hr Q10H IV 05/04/25 01:15 05/04/25 03:45 100 MLS/HR Assessment/Plan Assessment/Plan HEMATURIA DUE TO URINARY TRACT INFECTION Patient came with hematuria, lower abdominal pain, nausea, vomiting, loss of appetite Lab shows leukocytosis WBC count 12.8 Lactic acid 1.2 Troponin 13> 15> 15 CT abdomen and pelvis without contrast: no acute abdominopelvic abnormality. UA shows ketones 1+, RBC 11, WBC 7 In ER patient received cefepime, ondansetron, morphine NSS 100 cc/hours Cefepime 1 g IV b.i.d. Tylenol 650 mg p.o. q.6 p.r.n. Type 2 diabetes mellitus with hyperglycemia During admission BMP blood glucose- 306 HBA1C 11.2 (03/28/2025) Insulin sliding scale Monitor blood sugar Home medication: Humulin 70/30- 35 units a.m. and 50 units p.m. Essential hypertension Lisinopril 10 mg p.o. daily Monitor blood pressure CXR mild cardiomegaly Hyperlipidemia Atorvastatin 20 mg p.o. q.h.s. Lipid profile Benign prostatic hyperplasia Finasteride 5 mg p.o. daily Tamsulosin 0.4 mg p.o. daily Peripheral neuropathy with rt leg chronic erythematous swelling Gabapentin 300 mg b.i.d. Continue IV antibiotic Urinary incontinence Oxybutynin 5 mg p.o. daily Lung nodularity CT show: Scattered tree-in-bud nodularity in the lung bases may reflect inflammatory small airways disease in the appropriate clinical setting. 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 MORBID OBESITY, BMI 36.3 Lifestyle modification Diet: Diabetic diet GI prophylaxis: Pantoprazole 40 mg p.o. daily DVT prophylaxis: Sequential compression device S patient came with hematuria. Goals of care discussions, more than 29 minute spent with patient. Full code status. Case discussed with Dr. Estevez Plan discussed with: Patient, Other (Nurse) My Orders Orders - KELSY VALENTIN Procedure Category Date Status Time Admit ADMIT 05/04/25 Transmitted 01:11 Code Status CODE 05/04/25 Transmitted 01:11 Sodium Chloride 0.9% PHA 05/04/25 In Process 01:15 Acetaminophen Tablet PHA 05/04/25 In Process (Tylenol Tablet) 01:15 Notify Of Changes MARCY 05/04/25 In Process From Base 01:11 Glucose Blood PHA 05/04/25 In Process (Accu-Chek Comfort 07:00 Insulin R (Human) PHA 05/04/25 In Process (Insulin R) 22:00 Insulin R (Human) PHA 05/04/25 In Process (Insulin R) 07:00 Dextrose 50% Syringe PHA 05/04/25 In Process 01:15 Consistent DIET 05/04/25 Transmitted Carb(Ccho)Diabetes Breakfast Sequential MARCY 05/04/25 In Process Compression Device 01:11 Complete Blood Count LAB 05/04/25 Logged 04:00 Comprehensive LAB 05/04/25 Logged Metabolic Panel 04:00 Vitamin B12 LAB 05/04/25 Logged 04:00 Drug Screen LAB 05/04/25 Logged 01:44 Date of Service: May 04, 2025 Billing Provider: RIZWANA ESTEVEZ MD Common Visit Codes: [id number] INP/OBS CARE (HIGH) Secondary Visit Codes: [id number] CARE PLAN 30 MINUTES KELSY VALENTIN May 04, 2025 04:11
[2025-05-04] MEDS: GABAPENTIN 100 MG CAP PO SCH (06:47)
[2025-05-04] MEDS: ACCU-CHEK COMFORT CURVE STRIP VI SCH (06:50)
[2025-05-04] MEDS: InsuLIN REG 1unit/0.01ml Soln (100units/ml) SC SCH ×2 (06:53→22:46)
[2025-05-04 07:45] VITALS: PULSE 84; RESP 18; O2SAT 95
[2025-05-04 08:25] LABS: Hematocrit 43.7 % (41.0-53.0); Hemoglobin 13.8 g/dL (13.5-17.5); Mean Corpuscular Hemoglobin 30.6 pg (28.0-32.0); Mean Corpuscular Volume 97.1 fL (80.0-100.0); Nucleated Red Blood Cells % 0.0 %
[2025-05-04 08:47] LABS: Alanine Aminotransferase 176 U/L (7-40); Albumin 3.7 g/dL (3.2-4.8); Alkaline Phosphatase 332 U/L (46-116); Anion Gap 21 (5-15); BUN/Creatinine Ratio 15.5 (10.0-20.0); Blood Urea Nitrogen 27 mg/dL (9-23); Calcium 9.3 mg/dL (8.7-10.4); Carbon Dioxide 18 mmol/L (20-31); Chloride 100 mmol/L (98-107); Glucose 373 mg/dL (74-106); Potassium 4.6 mmol/L (3.5-5.1); Sodium 139 mmol/L (136-145); Total Protein 6.0 g/dL (5.7-8.2)
[2025-05-04 08:48] LABS: Bilirubin, Total 1.9 mg/dL (0.2-1.0)
[2025-05-04] MEDS: CEFEPIME 1GM/50ML 50 ML IV SCH (10:26)
[2025-05-04] MEDS: OXYBUTYNIN CHL 5 MG TAB PO SCH (10:27)
[2025-05-04] MEDS: FINASTERIDE 5 MG TAB PO SCH (10:27)
[2025-05-04] MEDS: INSULIN 70/30 1unit/0.01ml Susp (100units/ml) SC SCH (10:40)
[2025-05-04 13:52] VITALS: BP 144/66; PULSE 86; RESP 18; TEMP 98.5; O2SAT 98
[2025-05-04 15:52] VITALS: BP 144/66; PULSE 86; RESP 18; TEMP 98.5; O2SAT 98
[2025-05-04 16:07] LABS: Opiate Scree,Urine Neg (NEGATIVE)
[2025-05-04 16:08] LABS: Amphetamine Screen, Urine Neg (NEGATIVE); Barbiturate Scree,Urine Neg (NEGATIVE); Benzodiazephine Screen, Urine Neg (NEGATIVE); Cannabinoid Screen, Urine Pos (NEGATIVE); Cocaine Screen, Urine Neg (NEGATIVE); Phencyclidine Screen, Urine Neg (NEGATIVE)
--- NOTE | 2025-05-04 16:16 | DVH ---
Technique: Real-time ultrasound imaging, with color Doppler and compression of the right common femo ral vein, femoral vein, greater saphenous vein, and popliteal vein. Indication: r/o dvt Comparison: US RT LOWER DVT on DOS: 07/15/24 Findings: There is normal compressibility and flow augmentation in all of the imaged deep veins. There are no f illing defects. There is right lower extremity soft tissue edema. Impression: No evidence of DVT in the right lower extremity
[2025-05-04 17:30] VITALS: BP 122/57; PULSE 86; RESP 18; TEMP 98.3; O2SAT 95
--- NOTE | 2025-05-04 17:57 | DVHPNRES ---
Progress Note Date Seen: May 04, 2025 Resident Creating Document: SCOTT ROBERTSON RESIDENT Medical Necessity Reason Pt with a Central, PICC or Fol: Yes Reason for hernandez catheter: Bladder Retention/Obstruc Subjective Review of Systems This is a 65-year-old male with past medical history of COPD, diabetes mellitus type 1, hypertension, dyslipidemia, gastroesophageal reflux disease, NH, peripheral artery disease and benign prostatic hyperplasia who came to the ED with the chief complaint of blood in his urine for the last 5 days. Patient mentioned his urine had become dark red colored but there were no blood clots seen in it. The patient also had lower abdominal pain for the last 5 days was 6 on 10 in intensity associated with on and off fever and nausea. The patient also mentioned having shortness of breath and fatigue with minimal exertion. She denied chills vomiting or chest pain. The patient also has right lower limb edema for the last almost 10 months. On bladder ultrasound 700cc of fluid was found in the bladder , hence a hernandez catheter was placed to relieve the urinary retention. Past medical history: Asthma, CHF, COPD, DM type 1, GERD, High Lipids, HTN, NH, UTI,BPH Past surgical history: LEFT BKA s/p prosthetic leg, right 5th toe amputation, Urinary stent placement by Dr. Lofton. Social & Personal history: Smoking: smoked a pack every day for 20 years but quit 20 years back Alcohol: denies Drugs: denies Allergies:Coded Allergies: Ciprofloxacin (Verified Allergy, Unknown, 04/13/19) Influenza Vaccines (Verified Allergy, Unknown, 04/13/19) Penicillins (Verified Allergy, Unknown, 04/13/19) Sulfa Antibiotics (Unverified Allergy, Unknown, 09/27/23) Patient seen and examined at bedside. Patient is alert and oriented to time, place person and responding to all questions. He has a prosthetic left leg. Patient is in mild distress. Eyes: No Pain, No Vision change, No Conjunctivae inflammation, No Eyelid inflammation, No Other, No Redness ENT: No Ear pain, No Ear discharge, No Nose pain, No Nose discharge, No Nose congestion, No Mouth pain, No Mouth swelling, No Throat pain, No Throat swelling Cardiovascular: No Chest Pain, No Palpitations, No Orthopnea, No Paroxysmal No Dyspnea, No Edema, No Lt Headedness Respiratory: No Cough, No Dry, mild Shortness of breath, No SOB with exertion, No Wheezing, No Hemoptysis, No Pleuritic Pain, No Sputum Gastrointestinal: No Nausea, No Vomiting,lower Abdominal Pain, No Diarrhea, No Constipation, No Melena, No Hematochezia Genitourinary: No Dysuria, No Frequency, No Incontinence, No Hematuria, No Retention Objective vital signs Vital Sign Date Time Temp Pulse Resp B/P (MAP) Pulse Ox O2 Delivery O2 Flow Rate FiO2 05/04/25 14:00 78 17 168/73 (104) 96 05/04/25 12:00 97.9 97.9 05/04/25 11:00 Room Air* 0 21 Total Intake and Output 05/03/25 05/03/25 05/04/25 15:00 23:00 07:00 Intake Total 50 ml Balance 50 ml medications Current Medications Medications Dose Ordered Sig/Cortez Route Start Time Stop Time Status Last Admin Dose Admin Sodium Chloride 1,000 ml @ 100 mls/hr Q10H IV 05/04/25 01:15 05/04/25 11:20 100 MLS/HR Acetaminophen 650 mg Q6HP PRN PO 05/04/25 01:15 Diagnostic Test (Pha) 1 strip ACHS 05/04/25 07:00 05/04/25 17:26 1 STRIP Insulin Human Regular HS SC 05/04/25 22:00 Insulin Human Regular AC SC 05/04/25 07:00 05/04/25 11:42 9 UNITS Dextrose 50 ml UD PRN IV 05/04/25 01:15 Cefepime HCl 50 ml @ 12.5 mls/hr Q12HR IV 05/04/25 10:00 05/04/25 10:26 12.5 MLS/HR Atorvastatin Calcium 20 mg HS PO 05/04/25 22:00 Finasteride 5 mg DAILY PO 05/04/25 10:00 05/04/25 10:27 5 MG Gabapentin 100 mg TID PO 05/04/25 06:00 05/04/25 15:30 100 MG Oxybutynin Chloride 5 mg Q12HR PO 05/04/25 10:00 05/04/25 10:27 5 MG Tamsulosin HCl 0.4 mg QPM PO 05/04/25 18:00 Patient Own Medication 1 BID@ SC 05/04/25 10:40 Examination General Appearance: Alert, Oriented X3, Cooperative, mild distress HEENT: Atraumatic, PERRLA, EOMI Respiratory: Clear to auscultation, Normal air movement Cardiovascular: Regular rate, Normal S1, Normal S2 Abdominal: Normal bowel sounds, Soft, tenderness on palpation of lower right and left quadrant Extremities: No clubbing,left below knee amputation, swelling and redness of right leg with fluid filled blisters,nontender, reduced distal pulses Skin: No breakdown Neuro: Normal speech, Strength at 5/5 X4 ext, Sensation intact, reduced sensation in right lower leg laboratory and microbiology Laboratory Tests 05/04/25 07:59 Test 05/04/25 07:59 Range/Units Serum Glucose 373 H 74-106 mg/dL Microbiology Date/Time Source Procedure Growth Status 05/03/25 16:24 Blood Blood Culture - Preliminary NO GROWTH AFTER 24 HOURS OF INCUBATION. Resulted Labs and/or images reviewed: Labs reviewed by me, Image(s) reviewed by me Problem List/Assessment/Plan Problem List/Assessment/Plan HEMATURIA likely secondary to urinary obstruction UTI eukocytosis WBC count 12.8 UA shows ketones 1+, RBC 11, WBC 7 Cefepime 1 g IV b.i.d. Type 1 diabetes mellitus with hyperglycemia During admission BMP blood glucose- 306 HBA1C 11.2 (03/28/2025) Insulin sliding scale Home medication: Humulin 70/30- 35 units a.m. and 50 units p.m. resumed Essential hypertension,controlled Lisinopril 10 mg p.o. daily Dyslipidemia Atorvastatin 20 mg p.o. q.h.s. Benign prostatic hyperplasia Finasteride 5 mg p.o. daily Tamsulosin 0.4 mg p.o. daily Peripheral neuropathy Gabapentin 300 mg b.i.d. Possible cellulitis or DVT DVT ruled out with color doppler Urinary incontinence Oxybutynin 5 mg p.o. daily Left BKA s/p left prosthetic leg MORBID OBESITY, BMI 36.3 Lifestyle modification Diet: Diabetic diet GI prophylaxis: Pantoprazole 40 mg p.o. daily DVT prophylaxis: held due to hematuria Goals of care discussions, more than 29 minute spent with patient. Full code status. Case discussed with Dr. Hess Plan discussed with: Patient, Other (Nurse) Plan discussed with: Patient My Orders My Orders Orders - SCOTT ROBERTSON RESIDENT Procedure Category Date Status Time Patients Own PHA 05/04/25 In Process Medication 10:40 Date of Service: May 04, 2025 Billing Provider: LOLIS HESS MD Common Visit Codes: [id number] INP/OBS CARE(HIGH) Secondary Visit Codes: [id number] CARE PLAN 30 MINUTES SCOTT ROBERTSON RESIDENT May 04, 2025 17:57 LOLIS HESS MD May 06, 2025 20:59
[2025-05-04] MEDS: TAMSULOSIN HYDROCHLORIDE 0.4 MG CAP PO SCH (18:27)
[2025-05-04 21:00] VITALS: BP 136/59; PULSE 82; RESP 20; TEMP 98.4; O2SAT 95
[2025-05-04] MEDS: ATORVASTATIN 20 MG TAB PO SCH (21:58)
[2025-05-05 01:00] VITALS: BP 138/66; PULSE 91; RESP 17; TEMP 98.4; O2SAT 96
[2025-05-05 06:02] LABS: Hematocrit 39.1 % (41.0-53.0); Hemoglobin 12.8 g/dL (13.5-17.5); Mean Corpuscular Hemoglobin 30.3 pg (28.0-32.0); Mean Corpuscular Volume 92.5 fL (80.0-100.0); Nucleated Red Blood Cells % 0.0 %
[2025-05-05 06:09] LABS: Anion Gap 15 (5-15); Calcium 9.0 mg/dL (8.7-10.4); Carbon Dioxide 22 mmol/L (20-31); Chloride 104 mmol/L (98-107); Potassium 4.0 mmol/L (3.5-5.1); Sodium 141 mmol/L (136-145)
[2025-05-05 06:14] LABS: Glucose 236 mg/dL (74-106)
[2025-05-05 06:15] LABS: BUN/Creatinine Ratio 17.7 (10.0-20.0)
[2025-05-05 06:17] LABS: Blood Urea Nitrogen 31 mg/dL (9-23)
[2025-05-05 08:00] VITALS: PULSE 85; RESP 16; O2SAT 97
[2025-05-05 09:12] VITALS: BP 159/70; PULSE 85; RESP 16; TEMP 98.1; O2SAT 97
[2025-05-05 10:07] LABS: Prostate Specific Antigen 1.9 ng/mL (0.0-4.0)
[2025-05-05] MEDS ORDERED: TAMS-35 PO (11:59)
[2025-05-05] MEDS ORDERED: CEPH500C PO (11:59)
--- NOTE | 2025-05-05 12:05 | DVHDSRES ---
Discharge Summary Date of Admission Resident Creating Document: SCOTT ROBERTSON RESIDENT May 04, 2025 at 01:11 Date of Discharge: May 05, 2025 Admitting Diagnosis blood in urine Labs/Diagnostic Data: Laboratory Results Test 05/05/25 10:22 05/05/25 05:35 05/04/25 15:01 05/04/25 14:50 POC Glucose 228 mg/dl (70-106) White Blood Count 11.4 10^3/uL (4.4-10.8) Red Blood Count 4.23 10^6/uL (4.5-5.90) Hemoglobin 12.8 g/dL (13.5-17.5) Hematocrit 39.1 % (41.0-53.0) Mean Corpuscular Volume 92.5 fL (80.0-100.0) Mean Corpuscular Hemoglobin 30.3 pg (28.0-32.0) Mean Corpuscular Hemoglobin Concent 32.8 g/dL (32.0-36.0) Red Cell Distribution Width 14.9 % (11.8-14.3) Platelet Count 206 10^3/uL (140-450) Mean Platelet Volume 9.2 fL (6.9-10.8) Neutrophils (%) (Auto) 72.5 % (37.0-80.0) Lymphocytes (%) (Auto) 9.4 % (10.0-50.0) Monocytes (%) (Auto) 11.0 % (0.0-12.0) Eosinophils (%) (Auto) 6.6 % (0.0-7.0) Basophils (%) (Auto) 0.5 % (0.0-2.0) Neutrophils # (Auto) 8.3 10 ^3/uL (1.6-8.6) Lymphocytes # (Auto) 1.1 10 ^3/uL (0.4-5.4) Monocytes # (Auto) 1.3 10 ^3/uL (0-1.3) Eosinophils # (Auto) 0.8 10 ^3/uL (0-0.8) Basophils # (Auto) 0.1 10 ^3/uL (0-0.2) Nucleated Red Blood Cells 0.0 % Sodium Level 141 mmol/L (136-145) Potassium Level 4.0 mmol/L (3.5-5.1) Chloride Level 104 mmol/L (98-107) Carbon Dioxide Level 22 mmol/L (20-31) Anion Gap 15 (5-15) Blood Urea Nitrogen 31 mg/dL (9-23) Creatinine 1.75 mg/dL (0.700-1.30) Glomerular Filtration Rate Calc 42 mL/min (>90) BUN/Creatinine Ratio 17.7 (10.0-20.0) Serum Glucose 236 mg/dL (74-106) Calcium Level 9.0 mg/dL (8.7-10.4) Free Prostate Specific Antigen 0.64 ng/mL (N/A) Percent Free Prostate Specific Ag 33.7 % (.) Prostate Specific Antigen Total 1.9 ng/mL (0.0-4.0) Vitamin B12 Level > 2000 pg/mL (211-911) Urine Creatinine 86.59 mg/dL (30.0-125.0) Urine Sodium 59 mmol/L (40-220) Urine Opiates Screen Neg (NEGATIVE) Urine Fentanyl Screen Neg (NEGATIVE) Urine Barbiturates Screen Neg (NEGATIVE) Urine Phencyclidine Screen Neg (NEGATIVE) Urine Amphetamines Screen Neg (NEGATIVE) Urine Benzodiazepines Screen Neg (NEGATIVE) Urine Cocaine Screen Neg (NEGATIVE) Urine Cannabinoids Screen Pos (NEGATIVE) Test 05/04/25 07:59 05/03/25 21:14 05/03/25 21:12 05/03/25 19:50 Total Bilirubin 1.9 mg/dL (0.2-1.0) Aspartate Amino Transferase (AST) 52 U/L (13-40) Alanine Aminotransferase (ALT) 176 U/L (7-40) Alkaline Phosphatase 332 U/L (46-116) Total Protein 6.0 g/dL (5.7-8.2) Albumin 3.7 g/dL (3.2-4.8) Urine Color Yellow (Yellow) Urine Clarity Clear (Clear) Urine pH 5.0 (5.0-9.0) Urine Specific [place] 1.015 (1.001-1.035) Urine Protein 1+ (Negative) Urine Ketones 1+ (Negative) Urine Blood Negative /uL (Negative) Urine Nitrite Negative (Negative) Urine Bilirubin Negative (Negative) Urine Urobilinogen Normal mg/dL (Negative) Urine Leukocyte Esterase Negative /uL (Negative) Urine RBC 11 /hpf (0 - 3) Urine Microscopic WBC 7 /HPF (0-3) Urine Squamous Epithelial Cells Few /hpf (<5) Urine Bacteria None seen /hpf (None Seen) Urine Hyaline Casts Mod /lpf (0 - 2) Urine Mucus Few (None Seen) Urine Glucose 2+ mg/dL (Normal) Influenza Type A Antigen Negative (Negative) Influenza Type B Antigen Negative (Negative) SARS-CoV-2 Antigen (Rapid) Negative (NEGATIVE) Troponin I High Sensitivity 15 ng/L (</=54) Test 05/03/25 16:24 Lactic Acid Level 1.2 mmol/L (0.4-2.0) B-Type Natriuretic Peptide 135.81 pg/mL (0-100) Other Laboratory Tests 05/05/25 05:35 Brief Hx & Hospital Course: This is a 65-year-old male with a complex medical history including COPD, type 1 diabetes mellitus, hypertension, dyslipidemia, GERD, myocardial infarction, peripheral artery disease, benign prostatic hyperplasia, asthma, CHF, and prior urinary stent placement, who presented to the ED with five days of dark red hematuria, lower abdominal pain (6/10), intermittent fever, nausea, and fatigue with minimal exertion. He also reported chronic right lower limb edema and mild shortness of breath. Bladder ultrasound revealed 700cc of retained urine, and a Mills catheter was placed for urinary retention. Urinalysis showed ketones, RBCs, and WBCs, and labs revealed leukocytosis (WBC 12.8), consistent with a urinary tract infection; cefepime was initiated. CT abdomen and pelvis without contrast showed no acute findings, though evaluation was limited due to motion artifact and lack of IV contrast. Doppler ultrasound of the right lower extremity was performed to rule out DVT and showed no evidence of thrombosis, though soft tissue edema was noted. Hyperglycemia was managed with insulin sliding scale, and the patients home regimen of Humulin 70/30 was resumed. Other chronic medications including lisinopril, atorvastatin, finasteride, tamsulosin, gabapentin, and oxybutynin were continued. The patient remained alert and oriented, in mild distress, and was admitted for further management and monitoring. On evaluation today, he states he is well, pain is manageable. His vitals have remained stable for discharge home, follow up visit in urology clinic for further evaluation. All medications and recommendations were thoroughly explained and the patient states he understands and agrees. Detailed discussion held with patient at bedside were all questions were answered and concerns were addressed. Physical exam General Appearance: Alert, Oriented X3, Cooperative, mild distress HEENT: Atraumatic, PERRLA, EOMI Respiratory: Clear to auscultation, Normal air movement Cardiovascular: Regular rate, Normal S1, Normal S2 Abdominal: Normal bowel sounds, Soft, tenderness on palpation of lower right and left quadrant Extremities: No clubbing,left below knee amputation, swelling and redness of right leg with fluid filled blisters,nontender, reduced distal pulses Skin: No breakdown Neuro: Normal speech, Strength at 5/5 X4 ext, Sensation intact, reduced sensation in right lower leg Operations or Procedures PROCEDURE(s): RLDVT - RT Lower DVT REASON: r/o dvt ORDER NUMBER(s): [id number], ACCESSION NUMBER(s): [id number] Technique: Real-time ultrasound imaging, with color Doppler and compression of the right common femoral vein, femoral vein, greater saphenous vein, and popliteal vein. Indication: r/o dvt Comparison: US RT LOWER DVT on DOS: 07/15/24 Findings: There is normal compressibility and flow augmentation in all of the imaged deep veins. There are no filling defects. There is right lower extremity soft tissue edema. Impression: No evidence of DVT in the right lower extremity PROCEDURE(s): ABPL - CT AB PEL WO CON-NO ORAL OR IV REASON: abd pain fever hematuria ORDER NUMBER(s): [id number], ACCESSION NUMBER(s): [id number] Exam: CT CT AB PEL WO CON-NO ORAL OR IV History: abd pain fever hematuria Comparison Study: CT CT AB PEL WO CON-NO ORAL OR IV on DOS: 07/15/24, CT CT AB PEL WO CON-NO ORAL OR IV on DOS: 12/16/23, CT ABD PELVIS WO CONTRAST on DOS: 06/18/22 TECHNIQUE: Multidetector CT of the abdomen and pelvis was performed from lung bases to pubic symphysis. Imaging was performed without IV contrast. Axial, coronal, and sagittal multiplanar reformats were obtained from the axial data set by the technologist. RADIATION DOSE: CTDI vol 96.96 mGy. DLP 1536.82 mGy.cm Findings: Limited evaluation of the solid organs in the absence of IV contrast. Evaluation is also degraded by motion artifact. Liver: Unremarkable. Spleen: Unremarkable. Pancreas: Unremarkable. Gallbladder: Unremarkable. Adrenals: Unremarkable Kidneys: Unremarkable. Pelvic Viscera: Unremarkable. Vasculature: Mild atherosclerotic aortoiliac calcifications. Retroperitoneum: Unremarkable. Bowel: No bowel obstruction. Appendix is normal. Musculoskeletal: Unremarkable. Soft tissues: Mild subcutaneous edema. Lungs: Emphysema. Scattered tree-in-bud nodularity. Impression: 1. No acute abdominopelvic abnormality identified. 2. Scattered tree-in-bud nodularity in the lung bases may reflect inflammatory small airways disease in the appropriate clinical setting. 3. Additional findings as detailed. PROCEDURE(s): CXRP - CHEST PORTABLE REASON: cough ORDER NUMBER(s): [id number], ACCESSION NUMBER(s): [id number] CHEST RADIOGRAPH Indication: cough Technique: Single frontal view of the chest was obtained Comparison: CT CT ANGIO CHEST CONTRAST on DOS: 07/15/24, XY CHEST PORTABLE on DOS: 07/15/24, XY CHEST PORTABLE on DOS: 12/20/23 FINDINGS: Lines and Tubes: None Lungs: Resolved pulmonary vascular congestion Pleura: No effusion. No pneumothorax. Cardiomediastinal contours: Slightly improved cardiomegaly Bones: No acute osseous abnormality. IMPRESSION: 1. Chin Strap Cutter mild cardiomegaly. Condition at Discharge: Stable Final Diagnosis/Problems List HEMATURIA likely secondary to urinary obstruction acute complicated UTI Type 1 diabetes mellitus with hyperglycemia Essential hypertension,controlled Dyslipidemia Benign prostatic hyperplasia Peripheral neuropathy Possible cellulitis or DVT Urinary incontinence Left BKA s/p left prosthetic leg MORBID OBESITY, BMI 36.3 Discharge Disposition: Home Discharge Instruct/Medications Diet: Regular Activity: No Restrictions, As Tolerated Follow Up/Referral: Follow up with PCP within 1-2 weeks Follow up with Urology within 1-2 weeks Medications: Cephalexin 500 mg 1 cap p.o. t.i.d. 5 days Flomax 0.4 mg 1 cap PO HS 30 days continue home medications as per ESR Scheduled Atorvastatin Calcium (Lipitor), 1 TAB PO HS, (Reported) Baclofen (Baclofen), 1 TAB PO BID, (Reported) Cefpodoxime Proxetil (Cefpodoxime Proxetil), 100 MG PO BID Cephalexin Monohydrate (Cephalexin), 1 CAP PO TID Finasteride (Finasteride), 5 MG PO DAILY Furosemide (Furosemide), 1 TAB PO DAILY Insulin Isophane & Reg (Human) (Humulin 70/30 (70-30) 100 Unit/ml), UNIT SC UD, (Reported) Lisinopril (Lisinopril), 1 TAB PO DAILY, (Reported) Oxybutynin Chloride (Ditropan Xl), 5 MG PO BID Tamsulosin Hcl (Flomax), 1 CAP PO DAILY Tamsulosin Hcl (Flomax), 1 CAP PO HS Tolterodine Tartrate (Tolterodine Tartrate ER), 2 MG PO BID Scheduled PRN Diclofenac Sodium (Diclofenac Sodium Ec), 1 TAB PO BID PRN for PAIN, (Reported) Gabapentin (Gabapentin), 1 CAP PO BID PRN for LOW BACK PAIN, (Reported) Discharge Statement: "Patient was advised to return to the ER or call 911 if any headaches, dizziness, shortness of breath, chest pain, abdominal pain, bleeding, fevers, or worsening of medical condition. Patient was counseled about treatment plan, medications, possible side effects, patientverbalized understanding. All questions were answered to the best of my ability. This discharge took greater then 30 minutes in planning, reviewing documentation, counseling the patient, and discussing with other team members." ASSESSMENT ASSESSMENT Assessment HEMATURIA likely secondary to urinary obstruction acute complicated UTI Type 1 diabetes mellitus with hyperglycemia Essential hypertension,controlled Dyslipidemia Benign prostatic hyperplasia Peripheral neuropathy Possible cellulitis or DVT Urinary incontinence Left BKA s/p left prosthetic leg MORBID OBESITY, BMI 36.3 Date of Service: May 05, 2025 Billing Provider: LOLIS IGNACIO MD Common Visit Codes: 84581-IQM/OBS DISCH DAY >30min DANNA QUINONES RESIDENT May 05, 2025 12:05 LOLIS IGNACIO MD May 06, 2025 21:00
[2025-05-05 13:00] VITALS: BP 126/69; PULSE 87; RESP 18; TEMP 97.7; O2SAT 97
[2025-05-05] MEDS: MAALOX PLUS or MAALOX 30 ML PO ONE (14:41)
[2025-05-05 16:39] VITALS: BP 153/68; PULSE 82; RESP 18; TEMP 97.6; O2SAT 96
--- NOTE | 2025-05-05 16:48 | DVHSR ---
APPROVED REPORT EXAM: Two-dimensional and M-mode echocardiogram with Doppler and color Doppler. Blood Pressure: 138/66 mmHg INDICATION CHF? RISK FACTORS Obesity: Height: 6'3", Weight: 247 DIMENSIONS LVDd4.8 (3.8-5.7cm)LA (2D)4.4 (1.9-4.0cm)Aortic Root3.3 (2.0-3.7cm) LVDs3.4 (2.5-4.0cm)LA (MM) (1.9-4.0cm)Aortic Cusp Exc1.5 (1.5-2.0cm) EF (%) 56.0 (55-70%)Rt. Atrium4.1 (1.9-4.0cm)Asc. Aorta cm IVSd1.2 (0.7-1.1cm)RV (D) (1.8-2.4cm) PWd1.3 (0.7-1.1cm) Mitral Valve MitralMitral Stenosis E wave0.92m/sMV Mean GR.mmHg A wave1.20m/sMV Peak GR.mmHg E/A ratio0.82D MVAcm2 DECEL [id number] 1/2 Timems Aortic Valve Aortic ValveAortic Stenosis V10.70m/Zev Mean GR.5mmHg V21.50m/Zev Peak GR.9mmHg LVOT Diameter2.0 (1.8-2.4cm)Doppler AVA1.47cm2 Other Information Technically limited study due to body habitus, patient lying flat. Conclusion lvef 50% mild LVH normal rv function, RV enlarged left atrium enlarged no severe valve abnormalities noted
[2025-05-07 11:34] LABS: Hepatitis A Total Antibody Negative (Negative); Hepatitis B Surface Antigen Negative (Negative); Hepatitis C Antibody Negative (Negative)
== END 2025-05-05 19:55 | disposition home or self-care (01) | DRG 690 ==
LOC: EDBD 15:14 → ER 15:14 → EDUNIT# 15:14 → OVERFLOW 05-04 01:11 → WEST WING 05-04 15:53
PROVIDERS: ADMIT Internal Medicine Geriatric Medicine; ATTEND Internal Medicine Geriatric Medicine
DX: N39.0 Urinary tract infection, site not specified (principal); L03.818 Cellulitis of other sites; N13.8 Other obstructive and reflux uropathy; I50.9 Heart failure, unspecified; I11.0 Hypertensive heart disease with heart failure; J44.89 Other specified chronic obstructive pulmonary disease; E66.01 Morbid (severe) obesity due to excess calories; N40.1 Benign prostatic hyperplasia with lower urinary tract symptoms; N39.498 Other specified urinary incontinence; E78.5 Hyperlipidemia, unspecified; K21.9 Gastro-esophageal reflux disease without esophagitis; E10.65 Type 1 diabetes mellitus with hyperglycemia; E10.42 Type 1 diabetes mellitus with diabetic polyneuropathy; Z88.1 Allergy status to other antibiotic agents; Z89.512 Acquired absence of left leg below knee; Z87.891 Personal history of nicotine dependence; Z88.0 Allergy status to penicillin; I25.2 Old myocardial infarction; Z68.36 Body mass index [BMI] 36.0-36.9, adult
CPT/HCPCS: 36415; 71045; 74176; 80048; 80053; 80307; 81001; 82570; 82607; 82962; 83605; 83880; 84154; 84300; 84484; 85025; 86704; 86706; 86708; 86803; 87040; 87340; 87426; 87804; 93306; 93971; 96365; 96375; 99291; G0378; J0692; J1815; J2405